=== PATIENT | female | born 1945 | race Caucasian/White ===

== ENCOUNTER 2017-12-14 11:30 | Inpatient (IN) ==
--- NOTE | 2017-12-14 13:32 | Emergency Department Note ---
Disposition Clinical Impression: Vertigo, Disequilibrium Disposition: Admitted As Inpatient Condition: Fair Time of Disposition: 21:15 SOB HPI - General Chief Complaint: ED Shortness of Breath/Dyspnea Stated Complaint: Dizziness,ALKES Time Seen by Provider: 12/14/17 13:26 Source: patient Mode of arrival: ambulatory Limitations: no limitations Nursing Notes Reviewed: Yes Vital Signs Reviewed: Yes - History of Present Illness Patient is a 72-year-old female with past medical history of tricuspid valve regurg, CHF and recently started on Lasix 20 mg Monday and Monday, A. fib and currently on rate control medication and blood thinner, Hypertension, hyperlipidemia. She presents today due to vertigo, disequilibrium, falling towards the right. She says that over the past 2-3 days, she has began feeling dizzy. She describes as the room spinning. Denies any other numbness, tingling , weakness, chest pain, shortness of breath above her baseline with COPD and CHF , abdominal pain, nausea, vomiting, fevers. She denies any actual falls or hitting her head, any LOC. She just states that she keeps falling to her right and then catches herself before she falls to the ground. She was seen in urgent care earlier this morning and had a chest x-ray that showed no pulmonary edema. She was referred here due to dizziness. - Related Data Home Medications Medication Instructions Recorded Confirmed Aspirin [Lo-Dose Aspirin EC] 81 mg PO DAILY 07/20/15 12/14/17 Montelukast [Singulair] 10 mg PO HS 07/20/15 12/14/17 Pravastatin Sodium [Pravachol] 20 mg PO HS 07/20/15 12/14/17 clonazePAM [Klonopin] 0.5 mg PO HS PRN 08/24/16 12/14/17 methIMAzole [Tapazole] 2.5 mg PO Q48H 08/24/16 12/14/17 Albuterol Sulfate [Albuterol 2 puff IH Q4HR PRN 11/18/16 12/14/17 Inhaler] Escitalopram [Lexapro] 20 mg PO DAILY 11/18/16 12/14/17 Vit A/Vit C/Vit E/Zinc/Copper 1 each PO DAILY 11/18/16 12/14/17 [Preservision Areds Tablet] Warfarin [Coumadin] 10 mg PO SUMOTUTHFR 11/18/16 12/14/17 Ascorbic Acid [Vitamin C] 500 mg PO DAILY 05/09/17 12/14/17 Diltiazem HCl [Diltiazem 24Hr Cd] 360 mg PO DAILY 05/09/17 12/14/17 Metoprolol [Lopressor] 12.5 mg PO BID 05/09/17 12/14/17 BuPROPion XL (24 HR) [Wellbutrin 150 mg PO DAILY 12/14/17 12/14/17 XL] Furosemide [Lasix] 20 mg PO MOWEFR 12/14/17 12/14/17 Losartan Potassium [Cozaar] 50 mg PO DAILY 12/14/17 12/14/17 Mirabegron [Myrbetriq] 50 mg PO DAILY 12/14/17 12/14/17 Warfarin [Coumadin] 5 mg PO WESA 12/14/17 12/14/17 Previous Rx's Medication Instructions Recorded Digoxin [Lanoxin] 0.125 mg PO DAILY 30 Days tablet 08/28/16 Allergies Allergy/AdvReac Type Severity Reaction Status Date / Time Iodinated Contrast- Oral and Allergy Rash Verified 12/14/17 11:40 IV Dye Penicillins [PCN] Allergy Hives Verified 12/14/17 11:40 phenobarbital Allergy Seizure Verified 12/14/17 11:40 Sulfa (Sulfonamide Allergy Hives Verified 12/14/17 11:40 Antibiotics) Beta-Blockers AdvReac Difficulty Verified 12/14/17 11:40 (Beta-Adrenergic Bloc Breathing budesonide [From Symbicort] AdvReac Weakness Verified 12/14/17 11:40 Formoterol [From Symbicort] AdvReac Weakness Verified 12/14/17 11:40 nitrofurantoin AdvReac Dry Mucus Verified 12/14/17 11:40 Membranes barbituates Allergy Hives Uncoded 12/14/17 11:40 All systems ED: reviewed and negative except as stated. Constitutional: Denies: fever Cardiovascular: Denies: chest pain, palpitations Respiratory: Denies: cough, dyspnea, wheezes Gastrointestinal: Denies: abdominal pain, nausea, vomiting, diarrhea Genitourinary: Denies: urgency, dysuria, genital lesions Musculoskeletal: Denies: neck pain Integumentary: Denies: rash Neurological: Reports: vertigo. Denies: headache, weakness, numbness, paresthesias Past Medical History - Past Medical History Attestation: Yes The following information was validated with the patient. 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 - Social History Smoking Status: Current every day smoker Smokeless Tobacco Status: No Alcohol use: Reports: none Drug use: Reports: none Physical Exam - General Limitations: no limitations General appearance: alert, in no apparent distress - Head Head exam: atraumatic, normocephalic, normal inspection - Eye Eye exam: Present: normal appearance, PERRL, EOMI, other (no nystagmus) - ENT ENT exam: normal exam, normal oropharynx, mucous membranes moist - Neck Neck exam: Present: normal inspection, full ROM, trachea midline - Chest Chest inspection: Present: normal inspection, symmetric chest wall rise - Respiratory Respiratory exam: Present: other (mild crackles in bilateral LL). Absent: respiratory distress, wheezes - Cardiovascular Cardiovascular exam: Present: regular rate, normal rhythm, normal heart sounds - Abdominal Exam Abdominal exam: Present: soft, Non-Tender. Absent: tenderness, distention, guarding, rebound, rigidity - Extremities Exam Extremities exam: Present: normal inspection, full ROM. Absent: tenderness, pedal edema - Neurological Exam Neurological exam: Present: alert, oriented X3, CN II-XII intact, other (no ataxia of bilateral upper limbs). Absent: motor sensory deficit - Psychiatric Psychiatric exam: Present: normal affect, normal mood - Skin Skin exam: Present: warm, dry, intact, normal color Course Vital Signs Temperature 97.7 F 12/14/17 11:36 Pulse Rate 88 12/14/17 11:36 Respiratory Rate 18 12/14/17 11:36 Blood Pressure 170/86 12/14/17 11:36 O2 Sat by Pulse Oximetry 88 12/14/17 11:36 Temperature 97.7 F 12/14/17 11:36 Pulse Rate 72 12/14/17 17:04 Respiratory Rate 14 12/14/17 17:48 Blood Pressure 145/95 12/14/17 17:48 O2 Sat by Pulse Oximetry 93 12/14/17 17:04 Oxygen Delivery Oxygen Delivery Nasal Cannula Shortness of Breath/Dyspnea - [facility] [place] Narrative Medical decision making narrative: No elevation white blood cell count. Troponin was elevated at 0.07 but this is similar to all previous troponin levels. Chest x-ray from earlier today shows bilateral small pleural effusions but no other acute cardio pulmonary process. Head CT was negative for any acute intracranial abnormality. Results were discussed with the patient. Currently concern for cerebellar stroke due to her distal equilibrium, vertigo symptoms. Recommend that she be admitted for further CVA workup and recommend MRI/MRA of the head and neck for further eval. Patient was happy and agreeable with this plan. Hospitalist has accepted for admission. Head CT 12/14/17 13:49 IMPRESSION: No acute intracranial abnormality. D/ / Ariel Rey MD / Ariel Rey MD Interpreting Provider: Ariel Rey MD - Medical Records Medical records reviewed: Yes I reviewed the patient's medical records. - Lab Data Lab results reviewed: Yes I reviewed the patient's lab results. Result diagrams: 12/14/17 12:57 12/14/17 12:57 Lab Results 12/14/17 12/14/17 12/14/17 Range/Units 12:57 12:57 12:57 WBC 6.9 (4.3-11.1) K/mcL RBC 4.85 (3.82-4.97) M/mcL Hgb 15.1 (11.5-15.4) g/dL Hct 49.0 H (35.3-44.9) % MCV 101.0 H (83.0-100.0) fL MCH 31.1 (28.0-33.3) pg MCHC 30.8 L (31.6-35.5) g/dL RDW 14.5 (11.5-14.5) % Plt Count 224 (140-400) K/mcL MPV 11.4 (9.4-12.4) fL Immature Gran % 0.1 (0-4) % Seg Neutrophils % 68.8 % Lymphocytes % 14.4 % Monocytes % 11.5 % Eosinophils % 3.2 % Basophils % 2.0 % Neutrophils # 4.8 (1.6-8.9) K/mcL Lymphocytes # 1.0 (0.6-4.6) K/mcL Monocytes # 0.8 (0.0-1.3) K/mcL Eosinophils # 0.2 (0.0-0.6) K/mcL Basophils # 0.1 (0.0-0.2) K/mcL Sodium 141 (136-145) mEq/L Potassium 4.4 (3.5-5.1) mEq/L Chloride 105 (98-107) mEq/L Carbon Dioxide 33 H (23-29) mEq/L BUN 13 (8-23) mg/dL Creatinine 0.59 L (0.60-1.20) mg/dL Est GFR ( Amer) > 60 (> 60) Est GFR (Non-Af Amer) > 60 (> 60) BUN/Creatinine Ratio 22 (6-26) Glucose 121 H (70-105) mg/dL Calculated Osmolality 293 (280-300) Lactic Acid 0.7 (0.5-2.2) mmol/L Calcium 9.8 (8.6-10.3) mg/dL Troponin I 0.07 H* (< 0.04) ng/mL B-Natriuretic Peptide (Less than 100) pg/mL 12/14/17 Range/Units 12:57 WBC (4.3-11.1) K/mcL RBC (3.82-4.97) M/mcL Hgb (11.5-15.4) g/dL Hct (35.3-44.9) % MCV (83.0-100.0) fL MCH (28.0-33.3) pg MCHC (31.6-35.5) g/dL RDW (11.5-14.5) % Plt Count (140-400) K/mcL MPV (9.4-12.4) fL Immature Gran % (0-4) % Seg Neutrophils % % Lymphocytes % % Monocytes % % Eosinophils % % Basophils % % Neutrophils # (1.6-8.9) K/mcL Lymphocytes # (0.6-4.6) K/mcL Monocytes # (0.0-1.3) K/mcL Eosinophils # (0.0-0.6) K/mcL Basophils # (0.0-0.2) K/mcL Sodium (136-145) mEq/L Potassium (3.5-5.1) mEq/L Chloride (98-107) mEq/L Carbon Dioxide (23-29) mEq/L BUN (8-23) mg/dL Creatinine (0.60-1.20) mg/dL Est GFR ( Amer) (> 60) Est GFR (Non-Af Amer) (> 60) BUN/Creatinine Ratio (6-26) Glucose (70-105) mg/dL Calculated Osmolality (280-300) Lactic Acid (0.5-2.2) mmol/L Calcium (8.6-10.3) mg/dL Troponin I (< 0.04) ng/mL B-Natriuretic Peptide 297 H (Less than 100) pg/mL - Radiology Data Radiology results reviewed: Yes I reviewed the patient's radiology results. S.B.A.R. - S.B.A.R. Situation: Demographics, MOA Background: Presenting Complaint, Relevant PMH, Meds, & Allergies Assessment: Vital Signs, Course and respsone to treatment, Exam Concerns, Patient/Family Expectation, Pertinant Lab Results Recommendation: Barrier(s) to disposition, Recommendation based on pending studies, treatments, or consults S.B.A.R. Report Given to: Dr. Austin
[2017-12-14 13:33] LABS: BUN/Creatinine Ratio 22 (6-26); Blood Urea Nitrogen 13 mg/dL (8-23); Calcium 9.8 mg/dL (8.6-10.3); Carbon Dioxide 33 mEq/L (23-29); Chloride 105 mEq/L (98-107); Glucose 121 mg/dL (70-105); Osmolality,Calculated 293 (280-300); Potassium 4.4 mEq/L (3.5-5.1); Sodium 141 mEq/L (136-145); eGFR For African Americans > 60 (> 60); eGFR For Non-African Americans > 60 (> 60)
[2017-12-14 13:34] LABS: Basophils # 0.1 K/mcL (0.0-0.2); Eosinophils # 0.2 K/mcL (0.0-0.6); Eosinophils % 3.2 %; Hemoglobin 15.1 g/dL (11.5-15.4); Immature Granulocytes % 0.1 % (0-4); Lymphocytes % 14.4 %; Mean Corpuscular HGB Conc 30.8 g/dL (31.6-35.5); Mean Corpuscular Hemoglobin 31.1 pg (28.0-33.3); Mean Platelet Volume 11.4 fL (9.4-12.4); Monocytes # 0.8 K/mcL (0.0-1.3); Monocytes % 11.5 %; Neutrophils # 4.8 K/mcL (1.6-8.9); Platelet Count 224 K/mcL (140-400); Red Blood Count 4.85 M/mcL (3.82-4.97); Red Cell Distribution Width 14.5 % (11.5-14.5); Segmented Neutrophils % 68.8 %
[2017-12-14 14:15] LABS: Troponin I 0.07 ng/mL (< 0.04)
--- NOTE | 2017-12-14 14:19 | Emergency Department Note ---
Disposition Clinical Impression: Vertigo, Disequilibrium Disposition: Admitted As Inpatient Condition: Fair General Adult HPI - General Chief complaint: ED Shortness of Breath/Dyspnea Stated complaint: Dizziness,ALEKS Time Seen by Provider: 12/14/17 13:26 Source: patient Mode of arrival: ambulatory Limitations: no limitations - History of Present Illness Pain Scale: 0 - Related Data Home Medications Medication Instructions Recorded Confirmed Aspirin [Lo-Dose Aspirin EC] 81 mg PO DAILY 07/20/15 12/14/17 Montelukast [Singulair] 10 mg PO HS 07/20/15 12/14/17 Pravastatin Sodium [Pravachol] 20 mg PO HS 07/20/15 12/14/17 clonazePAM [Klonopin] 0.5 mg PO HS PRN 08/24/16 12/14/17 methIMAzole [Tapazole] 2.5 mg PO Q48H 08/24/16 12/14/17 Albuterol Sulfate [Albuterol 2 puff IH Q4HR PRN 11/18/16 12/14/17 Inhaler] Escitalopram [Lexapro] 20 mg PO DAILY 11/18/16 12/14/17 Vit A/Vit C/Vit E/Zinc/Copper 1 each PO DAILY 11/18/16 12/14/17 [Preservision Areds Tablet] Warfarin [Coumadin] 10 mg PO SUMOTUTHFR 11/18/16 12/14/17 Ascorbic Acid [Vitamin C] 500 mg PO DAILY 05/09/17 12/14/17 Diltiazem HCl [Diltiazem 24Hr Cd] 360 mg PO DAILY 05/09/17 12/14/17 Metoprolol [Lopressor] 12.5 mg PO BID 05/09/17 12/14/17 BuPROPion XL (24 HR) [Wellbutrin 150 mg PO DAILY 12/14/17 12/14/17 XL] Furosemide [Lasix] 20 mg PO MOWEFR 12/14/17 12/14/17 Losartan Potassium [Cozaar] 50 mg PO DAILY 12/14/17 12/14/17 Mirabegron [Myrbetriq] 50 mg PO DAILY 12/14/17 12/14/17 Warfarin [Coumadin] 5 mg PO WESA 12/14/17 12/14/17 Previous Rx's Medication Instructions Recorded Digoxin [Lanoxin] 0.125 mg PO DAILY 30 Days tablet 08/28/16 Allergies Allergy/AdvReac Type Severity Reaction Status Date / Time Iodinated Contrast- Oral and Allergy Rash Verified 12/14/17 11:40 IV Dye Penicillins [PCN] Allergy Hives Verified 12/14/17 11:40 phenobarbital Allergy Seizure Verified 12/14/17 11:40 Sulfa (Sulfonamide Allergy Hives Verified 12/14/17 11:40 Antibiotics) Beta-Blockers AdvReac Difficulty Verified 12/14/17 11:40 (Beta-Adrenergic Bloc Breathing budesonide [From Symbicort] AdvReac Weakness Verified 12/14/17 11:40 Formoterol [From Symbicort] AdvReac Weakness Verified 12/14/17 11:40 nitrofurantoin AdvReac Dry Mucus Verified 12/14/17 11:40 Membranes barbituates Allergy Hives Uncoded 12/14/17 11:40 Past Medical History - Past Medical History Medical history: Reports: CVA, hyperlipidemia, hypertension, other Surgical history: Reports: coronary bypass (CABG), heart valve replacement Psychiatric history: Reports: depression 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 - Social History Smoking Status: Current every day smoker Smokeless Tobacco Status: No Alcohol use: Reports: none Drug use: Reports: none Physical Exam - General Limitations: no limitations General appearance: alert, in no apparent distress Course Vital Signs Temperature 97.7 F 12/14/17 11:36 Pulse Rate 88 12/14/17 11:36 Respiratory Rate 18 12/14/17 11:36 Blood Pressure 170/86 12/14/17 11:36 O2 Sat by Pulse Oximetry 88 12/14/17 11:36 Temperature 97.7 F 12/14/17 11:36 Pulse Rate 72 12/14/17 17:04 Respiratory Rate 14 12/14/17 17:48 Blood Pressure 145/95 12/14/17 17:48 O2 Sat by Pulse Oximetry 93 12/14/17 17:04 Oxygen Delivery Oxygen Delivery Nasal Cannula Medical Decision Making - Lab Data Result diagrams: 12/14/17 12:57 12/14/17 12:57 Lab Results 12/14/17 12/14/17 12/14/17 Range/Units 12:57 12:57 12:57 WBC 6.9 (4.3-11.1) K/mcL RBC 4.85 (3.82-4.97) M/mcL Hgb 15.1 (11.5-15.4) g/dL Hct 49.0 H (35.3-44.9) % MCV 101.0 H (83.0-100.0) fL MCH 31.1 (28.0-33.3) pg MCHC 30.8 L (31.6-35.5) g/dL RDW 14.5 (11.5-14.5) % Plt Count 224 (140-400) K/mcL MPV 11.4 (9.4-12.4) fL Immature Gran % 0.1 (0-4) % Seg Neutrophils % 68.8 % Lymphocytes % 14.4 % Monocytes % 11.5 % Eosinophils % 3.2 % Basophils % 2.0 % Neutrophils # 4.8 (1.6-8.9) K/mcL Lymphocytes # 1.0 (0.6-4.6) K/mcL Monocytes # 0.8 (0.0-1.3) K/mcL Eosinophils # 0.2 (0.0-0.6) K/mcL Basophils # 0.1 (0.0-0.2) K/mcL Sodium 141 (136-145) mEq/L Potassium 4.4 (3.5-5.1) mEq/L Chloride 105 (98-107) mEq/L Carbon Dioxide 33 H (23-29) mEq/L BUN 13 (8-23) mg/dL Creatinine 0.59 L (0.60-1.20) mg/dL Est GFR ( Amer) > 60 (> 60) Est GFR (Non-Af Amer) > 60 (> 60) BUN/Creatinine Ratio 22 (6-26) Glucose 121 H (70-105) mg/dL Calculated Osmolality 293 (280-300) Lactic Acid 0.7 (0.5-2.2) mmol/L Calcium 9.8 (8.6-10.3) mg/dL Troponin I 0.07 H* (< 0.04) ng/mL B-Natriuretic Peptide (Less than 100) pg/mL 12/14/17 Range/Units 12:57 WBC (4.3-11.1) K/mcL RBC (3.82-4.97) M/mcL Hgb (11.5-15.4) g/dL Hct (35.3-44.9) % MCV (83.0-100.0) fL MCH (28.0-33.3) pg MCHC (31.6-35.5) g/dL RDW (11.5-14.5) % Plt Count (140-400) K/mcL MPV (9.4-12.4) fL Immature Gran % (0-4) % Seg Neutrophils % % Lymphocytes % % Monocytes % % Eosinophils % % Basophils % % Neutrophils # (1.6-8.9) K/mcL Lymphocytes # (0.6-4.6) K/mcL Monocytes # (0.0-1.3) K/mcL Eosinophils # (0.0-0.6) K/mcL Basophils # (0.0-0.2) K/mcL Sodium (136-145) mEq/L Potassium (3.5-5.1) mEq/L Chloride (98-107) mEq/L Carbon Dioxide (23-29) mEq/L BUN (8-23) mg/dL Creatinine (0.60-1.20) mg/dL Est GFR ( Amer) (> 60) Est GFR (Non-Af Amer) (> 60) BUN/Creatinine Ratio (6-26) Glucose (70-105) mg/dL Calculated Osmolality (280-300) Lactic Acid (0.5-2.2) mmol/L Calcium (8.6-10.3) mg/dL Troponin I (< 0.04) ng/mL B-Natriuretic Peptide 297 H (Less than 100) pg/mL Attestation Statement - Attestation Attestation: I examined this patient and my medical decision-making was reviewed with the FARM MANAGER/PA/Advanced Practice Nurse/Resident Physician. I agree with the documented findings, disposition and treatment plan as described except to the extent set forth below. Presents with vertigo and a feeling that she is leaning to one side and I did see the patient spoke with her and her family member and the concern is for a possible cerebellar infarct. This has been present for the last 2 or 3 days that she is not a thrombolytic candidate based on prolonged duration of this. No focal neurologic symptoms or signs. Evaluation in progress the patient will likely be admitted to the hospital as she does have a concerning story. Also does have concern breath likely from COPD exacerbation and does have generalized wheezing. [id number]
--- NOTE | 2017-12-14 17:29 | Electrocardiograph Report ---
[facility] Test Date: 2017-12-14 Pat Name: Betina Slade Department: 104 Room: 3B11 Gender: F [place]: ROBIN : 1945 Requested By: Murray Li Order Number: [id number] Reading MD: Rusty Hayes Measurements Intervals [place] Rate: 95 P: SC: 0 QRS: -62 QRSD: 91 T: 104 QT: 338 QTc: 391 Interpretive Statements ATRIAL FIBRILLATION MARKED LEFT AXIS DEVIATION NONSPECIFIC ST & T-WAVE ABNORMALITY Electronically Signed On 12-14-2017 17:27:53 EDT by Rusty Hayes
--- NOTE | 2017-12-14 17:44 | Internal Med History&Physical ---
Date of Encounter: 12/14/17 Time of Encounter: 17:35 Internal Medicine - H&P: HPI Chief complaint: Dysequalibrium Admitted From: Emergency Dept Plans for Post Hospital Care: Home History of present illness: Patient is a 72-year-old female with past medical history of severe tricuspid valve regurg, Mechanical AV and MV, CHF (recently started on Lasix 20 mg Monday and Monday), permanent A. fib (currently rate controlled), Long-term Coumadin use, hypertension, hyperlipidemia. She presents today due to vertigo, disequilibrium, falling towards the right. She says that over the past 2-3 days , she has began feeling dizzy especially when looking down but this has improved. She developed severe dysequalibrium today and cannot walk without grabbing onto the wall and feels like she is falling to the right. She denies visual changes, slurred speech, numbness, tingling, weakness, chest pain but is more sob. Her CT-Head is negative ICH or other acute pathology. Her initial troponin is elevated, but her ECG showes only nonspecific ST changes. She's noted LE edema over the past week or two and was started on Lasix this week by her PCP. She denies abdominal pain, nausea, vomiting, fevers, dyuria or UTI symptoms. She denies any actual falls or hitting her head. She just states that she keeps falling to her right and then catches herself before she falls to the ground. She was seen in urgent care earlier this morning and had a chest x-ray that showed no infiltrates but did show interstitial edema and small bilateral pleural effusions. She will be admitted for further w/u. Past Med Surg Social Fam HX - Past Medical History Medical history: CVA, hyperlipidemia, hypertension, other Psychiatric history: depression - Past Surgical History Surgical History: coronary bypass (CABG), heart valve replacement - Social History Smoking Status: Current every day smoker Smokeless Tobacco Status: No Alcohol use: none Drug use: none - Family History Father Adopted: No Family Member Ethnicity: Non- Living Status: Hx Family Cardiac Disorders: Yes Hx Family Respiratory Disorders: Yes (Emphysema) Hx Family Cancer: No Hx Family GI Disorders: No Hx Family Endocrine Disorder: No Hx Family Neuromuscular Disorders: No Hx Family Neurologic Disorders: No Hx Family HEENT Disorders: No Hx Family Autoimmune Disorders: No Internal Medicine - H&P: Meds Aspirin [Lo-Dose Aspirin EC] 81 mg PO DAILY 07/20/15 [History] Montelukast [Singulair] 10 mg PO HS 07/20/15 [History] Pravastatin Sodium [Pravachol] 20 mg PO HS 07/20/15 [History] clonazePAM [Klonopin] 0.5 mg PO HS PRN 08/24/16 [History] methIMAzole [Tapazole] 2.5 mg PO Q48H 08/24/16 [History] Digoxin [Lanoxin] 0.125 mg PO DAILY 30 Days tablet 08/28/16 [Rx] Albuterol Sulfate [Albuterol Inhaler] 2 puff IH Q4HR PRN 11/18/16 [History] Escitalopram [Lexapro] 20 mg PO DAILY 11/18/16 [History] Vit A/Vit C/Vit E/Zinc/Copper [Preservision Areds Tablet] 1 each PO DAILY [History] Warfarin [Coumadin] 10 mg PO SUMOTUTHFR 11/18/16 [History] Ascorbic Acid [Vitamin C] 500 mg PO DAILY 05/09/17 [History] Diltiazem HCl [Diltiazem 24Hr Cd] 360 mg PO DAILY 05/09/17 [History] Metoprolol [Lopressor] 12.5 mg PO BID 05/09/17 [History] BuPROPion XL (24 HR) [Wellbutrin XL] 150 mg PO DAILY 12/14/17 [History] Furosemide [Lasix] 20 mg PO MOWEFR 12/14/17 [History] Losartan Potassium [Cozaar] 50 mg PO DAILY 12/14/17 [History] Mirabegron [Myrbetriq] 50 mg PO DAILY 12/14/17 [History] Warfarin [Coumadin] 5 mg PO WESA 12/14/17 [History] 3 Allergy/AdvReac Type Severity Reaction Status Date / Time Iodinated Contrast- Oral and Allergy Rash Verified 12/14/17 11:40 IV Dye Penicillins [PCN] Allergy Hives Verified 12/14/17 11:40 phenobarbital Allergy Seizure Verified 12/14/17 11:40 Sulfa (Sulfonamide Allergy Hives Verified 12/14/17 11:40 Antibiotics) Beta-Blockers AdvReac Difficulty Verified 12/14/17 11:40 (Beta-Adrenergic Bloc Breathing budesonide [From Symbicort] AdvReac Weakness Verified 12/14/17 11:40 Formoterol [From Symbicort] AdvReac Weakness Verified 12/14/17 11:40 nitrofurantoin AdvReac Dry Mucus Verified 12/14/17 11:40 Membranes barbituates Allergy Hives Uncoded 12/14/17 11:40 All Systems PM: A 10-system review of systems was performed and is negative for pertinent findings except as documented above in the HPI. - Constitutional Constitutional: no anorexia, no chills, no falls, no weakness, no weight loss - EENT Eyes: no change in vision, no diplopia, no photophobia Ears: no decreased hearing, no ear pain, no tinnitus Nose, mouth and throat: no epistaxis - Respiratory Respiratory: no cough, no dyspnea, no hemoptysis, no wheezing - Gastrointestinal Gastrointestinal: no abdominal pain, no constipation, no diarrhea - Genitourinary Genitourinary: no dysuria - Psychiatric Psychiatric: no auditory hallucinations, no hallucinations, no suicidal ideation - Constitutional Vitals: Temp Pulse Resp BP Pulse Ox 97.7 F 72 14 159/93 93 12/14/17 11:36 12/14/17 17:04 12/14/17 17:04 12/14/17 17:04 12/14/17 17:04 General appearance: Present: A&O X 3, pleasant, no acute distress - Head Head exam: Present: atraumatic, normocephalic - Eye Eye exam: Present: EOMI, PERRL, conjuntiva pink, sclera anicteric. Absent: nystagmus, scleral icterus Pupils: Present: PERRL - Neck Neck exam general surgery: Present: supple, trachea midline. Absent: lymphadenopathy - Respiratory Respiratory exam: Present: CTAB, rales. Absent: accessory muscle use, rhonchi, wheezes - Cardiovascular Cardiovascular exam: Present: irregular rhythm, +S1, +S2. Absent: diastolic murmur, gallop, RRR, rubs, systolic murmur - GI/Abdominal GI/Abdominal exam: Present: normal bowel sounds, soft, no peritoneal signs. Absent: distended, tenderness - Extremities Exam Extremities exam: Present: warm, radial pulses palpable and symmetrical. Absent : calf tenderness, cyanotic, pedal edema - Neurological Exam Neurological exam: Present: abnormal gait, CN II-XII intact, oriented X3, no focal deficits. Absent: pronater drift, facial droop, speech deficit - Skin Skin exam: Present: dry, intact. Absent: petechiae Internal Med - H&P Results - Labs CBC & Chem 7: 12/14/17 12:57 12/14/17 12:57 - Assessment and plan (1) Vertigo Current Visit: Yes Status: Acute Assessment and plan: No focal neurological deficits except vertiginous symptoms. Feels like she is falling to right Concern for cerebellar infarct CT-Head did not show acute changes MRI-Brain ordered Neuro checks Telemetry Check carotid U/S Check Echo (2) Atrial fibrillation Current Visit: No Status: Chronic Assessment and plan: Rate controlled Continue home rate control medication Check INR (Tx range for Mech. Valves = 2.5-3.5) Continue telemetry Qualifiers: Atrial fibrillation type: persistent Qualified Code(s): I48.1 - Persistent atrial fibrillation (3) Mechanical heart valve present Current Visit: Yes Status: Acute Assessment and plan: Mechanical AV and MV On Warfarin Code(s): Z95.2 - Presence of prosthetic heart valve (4) CHF (congestive heart failure) Current Visit: No Status: Acute Assessment and plan: Recently started on Lasix Increase lasix to 20 mg IVP BID Check K+ and Mag Check Echo Qualifiers: Heart failure type: unspecified Heart failure chronicity: acute on chronic Qualified Code(s): I50.9 - Heart failure, unspecified (5) Elevated troponin Current Visit: No Status: Acute Assessment and plan: Hx of CAD No CP Continue trending troponins ECG showed Afib (rate controlled) with nonspecific ST changes On Coumadin On aspirin (6) Hyperthyroidism Current Visit: Yes Status: Acute Assessment and plan: On Tapazole Check TSH. fT4 (7) Long-term (current) use of anticoagulants, INR goal 2.5-3.5 Current Visit: No Status: Chronic Assessment and plan: RPh to dose Coumadin Check INR (8) DVT prophylaxis Current Visit: No Status: Chronic Assessment and plan: On Coumadin SNOMED Code(s): 929196532 - Time Spent With Patient Total time spent is greater than 50% in coordination of care (as documented) at patient's floor/unit and/or counseling patient: Greater than 35 minutes
[2017-12-14] MEDS ORDERED: clonazePAM 0.5 MG TABLET PO PRN (18:39)
[2017-12-14 19:10] LABS: INR 2.8; Prothrombin Time 30.3 Seconds (9.4-12.1)
[2017-12-14 19:27] LABS: Troponin I 0.06 ng/mL (< 0.04)
[2017-12-14 19:38] LABS: Thyroid Stimulating Hormone 3.468 mcIU/mL (0.340-5.600)
[2017-12-14 19:39] LABS: Triiodothyronine (T3) Free 2.96 pg/mL (2.50-3.90)
[2017-12-14] MEDS: BuPROPion XL (24 HR) 150 MG TABLET PO SCH (20:44)
[2017-12-14] MEDS: *HR* Warfarin 10 MG TABLET PO SCH (20:45)
[2017-12-14] MEDS: (Mirabegron [Myrbetriq] 50 MG) PO SCH (20:45)
[2017-12-14] MEDS: Furosemide 20 MG/2 ML VIAL IVP SCH (20:45)
[2017-12-14] MEDS ORDERED: methIMAzole 5 MG TABLET PO SCH (21:00)
[2017-12-15 07:24] LABS: Basophils # 0.1 K/mcL (0.0-0.2); Basophils % 1.6 %; Eosinophils # 0.2 K/mcL (0.0-0.6); Eosinophils % 3.4 %; Hematocrit 44.7 % (35.3-44.9); Hemoglobin 13.8 g/dL (11.5-15.4); Immature Granulocytes % 0.1 % (0-4); Lymphocytes # 0.8 K/mcL (0.6-4.6); Lymphocytes % 12.4 %; Mean Corpuscular HGB Conc 30.9 g/dL (31.6-35.5); Mean Corpuscular Hemoglobin 31.1 pg (28.0-33.3); Mean Corpuscular Volume 100.7 fL (83.0-100.0); Mean Platelet Volume 11.6 fL (9.4-12.4); Monocytes # 1.1 K/mcL (0.0-1.3); Monocytes % 16.5 %; Neutrophils # 4.4 K/mcL (1.6-8.9); Platelet Count 200 K/mcL (140-400); Red Blood Count 4.44 M/mcL (3.82-4.97); Red Cell Distribution Width 14.4 % (11.5-14.5)
[2017-12-15 07:35] LABS: INR 2.5
[2017-12-15 07:44] LABS: Alanine Aminotransferase 20 Units/L (7-52); Albumin 3.5 g/dL (3.5-5.7); Albumin/Globulin Ratio 1.3 (1.1-2.2); Alkaline Phosphatase 128 Units/L (34-104); Aspartate Amino Transferase 26 Units/L (13-39); BUN/Creatinine Ratio 23 (6-26); Blood Urea Nitrogen 15 mg/dL (8-23); Calcium 9.1 mg/dL (8.6-10.3); Carbon Dioxide 34 mEq/L (23-29); Chloride 105 mEq/L (98-107); Globulin 2.7 g/dL (2.4-3.5); Glucose 92 mg/dL (70-105); Osmolality,Calculated 302 (280-300); Potassium 4.2 mEq/L (3.5-5.1); Sodium 146 mEq/L (136-145); Total Protein 6.2 g/dL (6.4-8.9); eGFR For African Americans > 60 (> 60); eGFR For Non-African Americans > 60 (> 60)
[2017-12-15] MEDS: *HR* Digoxin 0.125 MG TABLET PO SCH (09:03)
[2017-12-15] MEDS: Furosemide 20 MG/2 ML VIAL IVP SCH ×2 (09:03→16:29)
[2017-12-15] MEDS: Ascorbic Acid 500 MG TABLET PO SCH (09:03)
[2017-12-15] MEDS: VIT C PO SCH (09:04)
[2017-12-15] MEDS: ZINC PO SCH (09:04)
[2017-12-15] MEDS: VIT E PO SCH (09:04)
[2017-12-15] MEDS: Aspirin Enteric Coated 81 MG Tablet PO SCH (09:04)
[2017-12-15] MEDS: VIT A PO SCH (09:04)
[2017-12-15] MEDS: COPPER PO SCH (09:04)
[2017-12-15] MEDS: Diltiazem CD (24hr) 180 MG CAPSULE PO SCH (09:04)
--- NOTE | 2017-12-15 13:50 | Internal Med Progress Note ---
Date of Encounter: 12/15/17 Time of Encounter: 13:49 - Assessment and plan (1) Atrial fibrillation Current Visit: No Status: Chronic Assessment and plan: Rate controlled Continue home medication INR 2.5 (Tx range for Mech. Valves = 2.5-3.5) Continue telemetry Qualifiers: Atrial fibrillation type: persistent Qualified Code(s): I48.1 - Persistent atrial fibrillation (2) Elevated troponin Current Visit: No Status: Acute Assessment and plan: Hx of CAD No complaints of chest pain or shortness of breath troponins 0.06 which on past labs was 0.06 to 0.07 ECG showed Afib (rate controlled) with nonspecific ST changes continue Coumadin and asa (3) CHF (congestive heart failure) Current Visit: No Status: Inactive Assessment and plan: Recently started on Lasix by PCP Continue lasix 20 mg IVP BID K+ 4.2 Echo pending Qualifiers: Heart failure type: unspecified Heart failure chronicity: acute on chronic Qualified Code(s): I50.9 - Heart failure, unspecified (4) Vertigo Current Visit: Yes Status: Acute Assessment and plan: No focal neurological deficits except vertiginous symptoms. Stated she feels like she is falling to right Concern for cerebellar infarct CT-Head did not show acute changes MRI-Brain with no acute intercranial abnormality and mild chronic microvascular ischemic disease, including remote bilateral cerebellar lacunar infarcts Neuro checks negative Carotid U/S pending Echo pending PT/OT/social service consults regarding fall risk and possible rehabilitation (5) Mechanical heart valve present Current Visit: Yes Status: Acute Assessment and plan: Mechanical AV and MV On Warfarin with therapeutic INR Code(s): Z95.2 - Presence of prosthetic heart valve (6) Hyperthyroidism Current Visit: Yes Status: Acute Assessment and plan: On Tapazole TSH. Free T3/4 within normal limits (7) Long-term (current) use of anticoagulants, INR goal 2.5-3.5 Current Visit: No Status: Chronic Assessment and plan: Pharmacyto dose Coumadin Therapeutic INR (8) DVT prophylaxis Current Visit: No Status: Chronic Assessment and plan: Continue Coumadin SNOMED Code(s): 125992658 - Time Spent With Patient Total time spent is greater than 50% in coordination of care (as documented) at patient's floor/unit and/or counseling patient: - Subjective Interval history: Patient is sitting up on the side of bed eating her breakfast. She is feeling better. She is currently on room air. She states she continues to smoke a half a pack of cigarettes a day. She denied any falls at home and states she has been feeling dizzy with listing to the right since Good Monday. She denies any chest pain, headache, blurred vision, abdominal pain, cough, or recent illness - Constitutional Vitals: Temp Pulse Resp BP Pulse Ox 97.9 F 87 17 158/83 93 12/15/17 07:44 12/15/17 07:44 12/15/17 07:44 12/15/17 07:44 12/15/17 07:44 General appearance: Present: cooperative, A&O X 3, pleasant, answers questions appropriately - Head Head exam: Present: atraumatic, normocephalic - Eye Eye exam: Present: PERRL, conjuntiva pink, sclera anicteric. Absent: nystagmus Pupils: Present: PERRL - Neck Neck exam general surgery: Present: supple, trachea midline. Absent: lymphadenopathy - Respiratory Respiratory exam: Present: CTAB, rales. Absent: accessory muscle use, rhonchi, wheezes Additional comments: crackles bases bilaterally - Cardiovascular Cardiovascular exam: Present: clicks, irregular rhythm, +S1, +S2. Absent: diastolic murmur, gallop, rubs, systolic murmur - GI/Abdominal GI/Abdominal exam: Present: normal bowel sounds, soft, no peritoneal signs. Absent: distended, tenderness - Extremities Exam Extremities exam: Present: pedal edema, warm, radial pulses palpable and symmetrical. Absent: calf tenderness, cyanotic - Neurological Exam Neurological exam: Present: alert, CN II-XII intact, oriented X3, no focal deficits. Absent: pronater drift, facial droop, speech deficit - Skin Skin exam: Present: dry, intact, normal color, warm Additional comments: lipoma on right upper back Internal Medicine: Result - Labs CBC & Chem 7: 12/15/17 06:37 12/15/17 06:37 Labs: Short CBC 12/15/17 Range/Units 06:37 WBC 6.7 (4.3-11.1) K/mcL Hgb 13.8 (11.5-15.4) g/dL Hct 44.7 (35.3-44.9) % Plt Count 200 (140-400) K/mcL Neutrophils # 4.4 (1.6-8.9) K/mcL BMP 12/15/17 06:37 Sodium 146 H Potassium 4.2 Chloride 105 Carbon Dioxide 34 H BUN 15 Creatinine 0.64 Glucose 92 Calcium 9.1 Cardiac Enzymes 12/14/17 12/15/17 Range/Units 18:49 06:37 Troponin I 0.06 H* 0.06 H* (< 0.04) ng/mL Liver Function 12/15/17 Range/Units 06:37 Total Bilirubin 1.0 (0.3-1.0) mg/dL AST 26 (13-39) Units/L ALT 20 (7-52) Units/L Alkaline Phosphatase 128 H (34-104) Units/L Albumin 3.5 (3.5-5.7) g/dL - ABG Interpretation ABG results: PT/INR, D-dimer PT 28.0 Seconds (9.4-12.1) H 12/15/17 06:37 - Impressions Impressions Brain MRI 12/15/17 09:51 IMPRESSION: No acute intracranial abnormality. Mild chronic microvascular ischemic disease, including remote bilateral cerebellar lacunar infarcts. D/ / 12/15/2017 10:59:18 Mike Salgado MD / [facility] Interpreting Provider: Mike Salgado MD Consult Discharge Plan - Plan Referrals: Desmond Howe MD [Primary Care Provider] -
[2017-12-15] MEDS: BuPROPion XL (24 HR) 150 MG TABLET PO SCH (16:29)
[2017-12-15] MEDS: (Mirabegron [Myrbetriq] 50 MG) PO SCH (16:29)
[2017-12-15] MEDS: *HR* Warfarin 10 MG TABLET PO SCH (16:29)
[2017-12-15] MEDS ORDERED: Warfarin perPT PO PRN (18:00)
[2017-12-16 04:43] LABS: Hematocrit 42.6 % (35.3-44.9); Hemoglobin 13.2 g/dL (11.5-15.4); Mean Corpuscular Hemoglobin 30.8 pg (28.0-33.3); Mean Corpuscular Volume 99.3 fL (83.0-100.0); Mean Platelet Volume 11.2 fL (9.4-12.4); Platelet Count 190 K/mcL (140-400); Red Blood Count 4.29 M/mcL (3.82-4.97); Red Cell Distribution Width 14.2 % (11.5-14.5)
[2017-12-16 04:47] LABS: INR 3.6; Prothrombin Time 39.8 Seconds (9.4-12.1)
[2017-12-16 05:05] LABS: BUN/Creatinine Ratio 36 (6-26); Blood Urea Nitrogen 22 mg/dL (8-23); Calcium 8.9 mg/dL (8.6-10.3); Carbon Dioxide 37 mEq/L (23-29); Chloride 106 mEq/L (98-107); Glucose 103 mg/dL (70-105); Magnesium 1.9 mg/dL (1.6-2.6); Osmolality,Calculated 306 (280-300); Potassium 3.8 mEq/L (3.5-5.1); Sodium 146 mEq/L (136-145); eGFR For African Americans > 60 (> 60); eGFR For Non-African Americans > 60 (> 60)
[2017-12-16 08:20] VITALS: BP 120/68
[2017-12-16] MEDS: Aspirin Enteric Coated 81 MG Tablet PO SCH (10:11)
[2017-12-16] MEDS: Diltiazem CD (24hr) 180 MG CAPSULE PO SCH (10:13)
[2017-12-16] MEDS: Ascorbic Acid 500 MG TABLET PO SCH (10:14)
[2017-12-16] MEDS: *HR* Digoxin 0.125 MG TABLET PO SCH (10:15)
[2017-12-16] MEDS: Furosemide 20 MG/2 ML VIAL IVP SCH (10:15)
[2017-12-16] MEDS: VIT C PO SCH (10:17)
[2017-12-16] MEDS: ZINC PO SCH (10:17)
[2017-12-16] MEDS: VIT A PO SCH (10:17)
[2017-12-16] MEDS: COPPER PO SCH (10:17)
[2017-12-16] MEDS: VIT E PO SCH (10:17)
--- NOTE | 2017-12-16 10:53 | Discharge Summary ---
- NOTES TO OUTPATIENT PROVIDER Notes to Outpatient Provider: to be transferred to [place] for second opinion on Pannus formation of Aortic valve Date of Encounter: 12/16/17 Time of Encounter: 10:51 - Discharge Diagnosis (1) Atrial fibrillation Priority: Primary Status: Chronic Qualifiers: Atrial fibrillation type: persistent Qualified Code(s): I48.1 - Persistent atrial fibrillation (2) Elevated troponin Priority: Primary Status: Acute (3) CHF (congestive heart failure) Priority: Secondary Status: Inactive Qualifiers: Heart failure type: unspecified Heart failure chronicity: chronic Qualified Code(s): I50.9 - Heart failure, unspecified (4) Vertigo Priority: Primary Status: Acute (5) Mechanical heart valve present Priority: Primary Status: Acute Code(s): Z95.2 - Presence of prosthetic heart valve (6) Hyperthyroidism Priority: Primary Status: Chronic (7) Long-term (current) use of anticoagulants, INR goal 2.5-3.5 Priority: Primary Status: Chronic (8) DVT prophylaxis Priority: Primary Status: Chronic SNOMED Code(s): 255459022 Hospital course: Ms. Slade is a 72 year old female with a past medical history significant for severe tried cuspid valve regurgitation, mechanical AV and MV valves, CHF recently started on Lasix 20 mg Fridays. She also has permanent atrial fibrillation rate controlled. She is on long-term Coumadin use with a history as well as hypertension and hyperlipidemia and CVA. She also suffers with depression. She had a CABG and heart valve replacements in the past. She continues to smoke every day. Patient presented to the emergency room at [facility] with increased lower extremity edema over the past week or 2 and was started on Lasix by her PCP before admission. She also stated she Falling to her right side and then caught her self before she fell to the ground. She is dizzy but denied any actual falls to the ground or hitting her head. Right abdominal pain, nausea, vomiting, fevers, dysuria, headache or UTI symptoms. She presented to an urgent care earlier in the day of admission and had a chest x-ray that showed no infiltrates but did show some interstitial edema and small bilateral pleural effusions she presented here and was admitted for a rule out stroke workup. Carotid duplex revealed right carotid artery with minimal plaque throughout and left internal carotid artery with 60-79% stenosis further recommendations were follow-up repeat carotid duplex in 1 year. An echocardiogram was obtained and revealed a LVEF of 55%, mild concentric left ventricular hypertrophy. Indeterminate diastolic function. Moderately dilated RV with mild reduction in function. 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 No prosthetic aortic stenosis or obstruction by Doppler parameters. Mechanical mitral valve is not well visualized and no prosthetic mitral stenosis by Doppler parameters. Moderate to severe tricuspid regurgitation and mild pulmonic regurgitation with mild pulmonary hypertension. Rest Echo findings revealed all wall segments showed normal motion. MRI reported no acute intercranial abnormalities. Mild chronic microvascular ischemic disease including remote bilateral cerebellar lacunar infarcts was noted Head CT revealed no acute intercranial abnormalities EKG revealed atrial fibrillation with marked left axis deviation and nonspecific ST and T wave abnormalities. Hemoglobin and hematocrit are stable at 42.6 and 99.3. WBCs normal at 6.8. Platelets 190. PT INR have been followed and she ranged from 2.8-3.6 with pharmacy adjusting her doses. Sodium 146, potassium 3.8 chloride 106 carbon dioxide 37 BUN 22 and creatinine 0.61. Glucose 103 lactic acid negative at 0.7 calcium 8.9 magnesium 1.9 total bilirubin 1.0 AST 26 ALT 20 alkaline phosphatase 128 and troponins 0.063 sets. BNP 297 serum total protein 6.2 TSH 3.468 with a free T4 of 0.87 and free T3 of 2.96 Cardiology contacted regarding findings on the echocardiogram and recommend transfer to [facility] or [place] for second opinion and evaluation of the pannus of the aortic valve. The patient chose [place] as she had a bad experience at [facility] with a family member there. She is very tearful and anxious about transfer. I personally spoke with her fiance Chicho and cardiology spoke with her sister. Family member support to transfer. The patient is agreeable and arrangements have been started. Vital signs are stable afebrile at 97.7 heart rate 80-102. Respiratory rate 16- 18. They are nonlabored. Blood pressure 126/64 to 120/68 and she is currently on room air satting 94% utilize 2 L overnight satting 93% Discharge discussed with: patient, family, nurse, surgical product sales consultant Time spent discussing smoking cessation with patient: 3 to 10 minutes - Time Spent with Patient Total time spent providing and/or coordinating discharge services: Less than 30 minutes - Discharge Medications Home Medications: Aspirin [Lo-Dose Aspirin EC] 81 mg PO DAILY 07/20/15 [History] Montelukast [Singulair] 10 mg PO HS 07/20/15 [History] Pravastatin Sodium [Pravachol] 20 mg PO HS 07/20/15 [History] clonazePAM [Klonopin] 0.5 mg PO HS PRN 08/24/16 [History] methIMAzole [Tapazole] 2.5 mg PO Q48H 08/24/16 [History] Digoxin [Lanoxin] 0.125 mg PO DAILY 30 Days tablet 08/28/16 [Rx] Albuterol Sulfate [Albuterol Inhaler] 2 puff IH Q4HR PRN 11/18/16 [History] Escitalopram [Lexapro] 20 mg PO DAILY 11/18/16 [History] Vit A/Vit C/Vit E/Zinc/Copper [Preservision Areds Tablet] 1 each PO DAILY [History] Warfarin [Coumadin] 10 mg PO SUMOTUTHFR 11/18/16 [History] Ascorbic Acid [Vitamin C] 500 mg PO DAILY 05/09/17 [History] Diltiazem HCl [Diltiazem 24Hr Cd] 360 mg PO DAILY 05/09/17 [History] Metoprolol [Lopressor] 12.5 mg PO BID 05/09/17 [History] BuPROPion XL (24 HR) [Wellbutrin XL] 150 mg PO DAILY 12/14/17 [History] Furosemide [Lasix] 20 mg PO MOWEFR 12/14/17 [History] Losartan Potassium [Cozaar] 50 mg PO DAILY 12/14/17 [History] Mirabegron [Myrbetriq] 50 mg PO DAILY 12/14/17 [History] Warfarin [Coumadin] 5 mg PO WESA 12/14/17 [History] Allergies/Adverse Reactions: 3 Allergy/AdvReac Type Severity Reaction Status Date / Time Iodinated Contrast- Oral and Allergy Rash Verified 12/14/17 11:40 IV Dye Penicillins [PCN] Allergy Hives Verified 12/14/17 11:40 phenobarbital Allergy Seizure Verified 12/14/17 11:40 Sulfa (Sulfonamide Allergy Hives Verified 12/14/17 11:40 Antibiotics) Beta-Blockers AdvReac Difficulty Verified 12/14/17 11:40 (Beta-Adrenergic Bloc Breathing budesonide [From Symbicort] AdvReac Weakness Verified 12/14/17 11:40 Formoterol [From Symbicort] AdvReac Weakness Verified 12/14/17 11:40 nitrofurantoin AdvReac Dry Mucus Verified 12/14/17 11:40 Membranes barbituates Allergy Hives Uncoded 12/14/17 11:40 Date of admission: 12/15/17 14:35 Primary care physician: Desmond Howe MD Discharging clinician: Lucille Abdul Anticipated date of discharge: 12/16/17 - Constitutional Vitals: Temp Pulse Resp BP Pulse Ox 97.7 F 102 16 120/68 94 12/16/17 08:18 12/16/17 08:18 12/16/17 08:18 12/16/17 08:18 12/16/17 08:18 General appearance: Present: cooperative, A&O X 3, pleasant, answers questions appropriately - Head Head exam: Present: atraumatic, normocephalic - Eye Eye exam: Present: PERRL, conjuntiva pink, sclera anicteric. Absent: nystagmus Pupils: Present: PERRL - Neck Neck exam general surgery: Present: supple, trachea midline. Absent: lymphadenopathy - Respiratory Respiratory exam: Present: decreased breath sounds. Absent: accessory muscle use, rales, rhonchi, wheezes - Cardiovascular Cardiovascular exam: Present: clicks, irregular rhythm, +S1, +S2. Absent: diastolic murmur, gallop, rubs, systolic murmur - GI/Abdominal GI/Abdominal exam: Present: normal bowel sounds, soft, no peritoneal signs. Absent: distended, tenderness - Extremities Exam Extremities exam: Present: pedal edema, warm, radial pulses palpable and symmetrical. Absent: calf tenderness, cyanotic - Neurological Exam Neurological exam: Present: alert, CN II-XII intact, normal gait, oriented X3, no focal deficits, strengths equal and symetr throughout. Absent: motor sensory deficit, pronater drift, facial droop, speech deficit - Psychiatric Psychiatric exam: Present: anxious Additional comments: Became very tearful and is fearful of transfer to outside hospital. Emotional support has been provided - Skin Skin exam: Present: dry, intact - Patient Status Disposition: Transfer Other Condition: Fair Functional capacity at discharge: independent ambulation Overall status at discharge: patient is not back to baseline - Discharge Instructions Follow Up With: Desmond Howe MD [Primary Care Provider] - - Diet and Activity Activity: increase activity as tolerated Diet: low fat, low cholesterol, low salt diet
[2017-12-16] MEDS ORDERED: *HR* Warfarin 5 MG TABLET PO SCH (18:00)
== END 2017-12-16 13:18 | disposition other institution (70) | DRG 149 ==
LOC: EMEROO 11:30 → 3BNU 11:30
PROVIDERS: ADMIT Internal Medicine; ATTEND Registered Nurse

== ENCOUNTER 2017-12-26 14:20 | Observation (INO) ==
[2017-12-26 15:21] LABS: Immature Platelets 6.7 % (1.1-6.1); Red Cell Distribution Width 13.8 % (11.5-14.5)
[2017-12-26 15:24] LABS: INR 3.6; Prothrombin Time 39.9 Seconds (9.4-12.1)
[2017-12-26 15:25] LABS: Basophils # 0.1 K/mcL (0.0-0.2); Basophils % 1.5 %; Eosinophils # 0.2 K/mcL (0.0-0.6); Eosinophils % 2.6 %; Hematocrit 48.5 % (35.3-44.9); Hemoglobin 15.7 g/dL (11.5-15.4); Immature Granulocytes % 0.4 % (0-4); Lymphocytes # 1.3 K/mcL (0.6-4.6); Lymphocytes % 14.6 %; Mean Corpuscular HGB Conc 32.4 g/dL (31.6-35.5); Mean Platelet Volume 11.8 fL (9.4-12.4); Monocytes % 11.5 %; Neutrophils # 5.9 K/mcL (1.6-8.9); Platelet Count 266 K/mcL (140-400); Segmented Neutrophils % 69.4 %
[2017-12-26 15:27] LABS: Activated Partial Thrombo Time 48.7 Seconds (26.0-36.0)
[2017-12-26 15:40] LABS: Alanine Aminotransferase 27 Units/L (7-52); Albumin 4.1 g/dL (3.5-5.7); Albumin/Globulin Ratio 1.5 (1.1-2.2); Alkaline Phosphatase 133 Units/L (34-104); Aspartate Amino Transferase 36 Units/L (13-39); BUN/Creatinine Ratio 24 (6-26); Blood Urea Nitrogen 19 mg/dL (8-23); Calcium 9.8 mg/dL (8.6-10.3); Carbon Dioxide 35 mEq/L (23-29); Chloride 102 mEq/L (98-107); Globulin 2.8 g/dL (2.4-3.5); Glucose 100 mg/dL (70-105); Osmolality,Calculated 298 (280-300); Potassium 4.4 mEq/L (3.5-5.1); Sodium 143 mEq/L (136-145); Total Protein 6.9 g/dL (6.4-8.9); eGFR For African Americans > 60 (> 60); eGFR For Non-African Americans > 60 (> 60)
[2017-12-26 15:41] LABS: Troponin I 0.06 ng/mL (< 0.04)
--- NOTE | 2017-12-26 15:54 | Emergency Department Note ---
Disposition Clinical Impression: History of heart valve replacement, Supratherapeutic INR, Elevated troponin Atrial fibrillation Qualifiers: Atrial fibrillation type: chronic Qualified Code(s): I48.2 - Chronic atrial fibrillation Disposition: Still a Patient Condition: Good Referrals: Desmond Howe MD [Primary Care Provider] - Forms: ED Satisfaction Letter Time of Disposition: 19:50 General Adult HPI - General Chief complaint: ED Arrhythmia/Palpitations Stated complaint: cardiology sent her for afib rvr Time Seen by Provider: 12/26/17 15:11 Source: patient Limitations: no limitations Nursing Notes Reviewed: Yes Vital Signs Reviewed: Yes - History of Present Illness HPI Narrative: Patient is a 72-year-old female that presents to the emergency department from cardiology for atrial fibrillation with rapid ventricular response. Patient states that she has had this in the past. She states over the past few days she has been feeling dizzy and off balance. However she states that yesterday and today she has been feeling normal and went for a cardiology checkup today and they did an EKG and found her to be in A. fib with RVR. The patient was then sent here to the emergency department. It is the patient's understanding that she was sent here for admission. Pain Scale: 0 - Related Data Home Medications Medication Instructions Recorded Confirmed Aspirin [Lo-Dose Aspirin EC] 81 mg PO DAILY 07/20/15 12/26/17 Montelukast [Singulair] 10 mg PO HS 07/20/15 12/26/17 Pravastatin Sodium [Pravachol] 20 mg PO HS 07/20/15 12/26/17 clonazePAM [Klonopin] 0.5 mg PO HS PRN 08/24/16 12/26/17 methIMAzole [Tapazole] 2.5 mg PO Q48H 08/24/16 12/26/17 Albuterol Sulfate [Albuterol 2 puff IH Q4HR PRN 11/18/16 12/26/17 Inhaler] Escitalopram [Lexapro] 20 mg PO DAILY 11/18/16 12/26/17 Vit A/Vit C/Vit E/Zinc/Copper 1 each PO DAILY 11/18/16 12/26/17 [Preservision Areds Tablet] Warfarin [Coumadin] 10 mg PO SUMOTUTHFR 11/18/16 12/26/17 Ascorbic Acid [Vitamin C] 500 mg PO DAILY 05/09/17 12/26/17 Diltiazem HCl [Diltiazem 24Hr Cd] 360 mg PO DAILY 05/09/17 12/26/17 Metoprolol [Lopressor] 12.5 mg PO BID 05/09/17 12/26/17 BuPROPion XL (24 HR) [Wellbutrin 150 mg PO DAILY 12/14/17 12/26/17 XL] Furosemide [Lasix] 40 mg PO DAILY 12/14/17 12/26/17 Losartan Potassium [Cozaar] 50 mg PO DAILY 12/14/17 12/26/17 Mirabegron [Myrbetriq] 50 mg PO DAILY 12/14/17 12/26/17 Warfarin [Coumadin] 5 mg PO WESA 12/14/17 12/26/17 Bromfenac Sodium [Prolensa] 1 drop OP BID 12/26/17 12/26/17 Difluprednate [Durezol] 1 drop OP BID 12/26/17 12/26/17 Potassium Chloride [Klor-Con 10] 10 meq PO DAILY 12/26/17 12/26/17 Previous Rx's Medication Instructions Recorded Digoxin [Lanoxin] 0.125 mg PO DAILY 30 Days tablet 08/28/16 Allergies Allergy/AdvReac Type Severity Reaction Status Date / Time Iodinated Contrast- Oral and Allergy Rash Verified 12/26/17 14:26 IV Dye Penicillins [PCN] Allergy Hives Verified 12/26/17 14:26 phenobarbital Allergy Seizure Verified 12/26/17 14:26 Sulfa (Sulfonamide Allergy Hives Verified 12/26/17 14:26 Antibiotics) Beta-Blockers AdvReac Difficulty Verified 12/26/17 14:26 (Beta-Adrenergic Bloc Breathing budesonide [From Symbicort] AdvReac Weakness Verified 12/26/17 14:26 Formoterol [From Symbicort] AdvReac Weakness Verified 12/26/17 14:26 nitrofurantoin AdvReac Dry Mucus Verified 12/26/17 14:26 Membranes barbituates Allergy Hives Uncoded 12/26/17 14:26 All systems ED: reviewed and negative except as stated. Cardiovascular: Reports: other (Rapid heart rate). Denies: chest pain, palpitations Respiratory: Denies: dyspnea Gastrointestinal: Denies: abdominal pain, nausea, vomiting Past Medical History - Past Medical History Medical history: Reports: atrial fibrillation, CVA, hyperlipidemia, hypertension , other Surgical history: Reports: coronary bypass (CABG), heart valve replacement Psychiatric history: Reports: depression PUSHER OPERATOR history: Reports: no PUSHER OPERATOR history - Social History Smoking Status: Light tobacco smoker Smokeless Tobacco Status: No Alcohol use: Reports: none Drug use: Reports: none Physical Exam - General Limitations: no limitations General appearance: alert, in no apparent distress - Head Head exam: atraumatic, normocephalic - Eye Eye exam: Present: normal appearance, EOMI - Neck Neck exam: Present: normal inspection, full ROM, trachea midline - Cardiovascular Cardiovascular exam: Present: regular rate, normal rhythm, normal heart sounds, +S1, +S2 - Abdominal Exam Abdominal exam: Present: soft, Non-Tender, normal bowel sounds - Neurological Exam Neurological exam: Present: alert, oriented X3 - Psychiatric Psychiatric exam: Present: normal affect, normal mood - Skin Skin exam: Present: warm, dry, intact Course Vital Signs Temperature 98.2 F 12/26/17 14:26 Pulse Rate 112 12/26/17 14:26 Respiratory Rate 20 12/26/17 14:26 Blood Pressure 117/80 12/26/17 14:26 O2 Sat by Pulse Oximetry 97 12/26/17 14:26 Temperature 98.2 F 12/26/17 14:26 Pulse Rate 94 12/26/17 18:45 Respiratory Rate 20 12/26/17 18:45 Blood Pressure 134/82 12/26/17 18:45 O2 Sat by Pulse Oximetry 93 12/26/17 18:45 Oxygen Delivery Oxygen Delivery Room Air Medical Decision Making - [facility] Narrative Medical decision making narrative: Due to the patient being sent to the emergency department for A. fib with RVR we will obtain a CBC, CMP, troponin, chest x-ray, EKG and regulation studies. Patient has a troponin of 0.06 over this appears to be chronic for her and the patient denies any active chest pain at this time. The patient's alkaline phosphatase is 133. Patient does have an INR of 3.6 slightly supratherapeutic due to her having heart valve replacements. I called and spoke with Drs. Hernandez and she had stated that if the patient's rate was controlled the patient to be discharged home we gave a dose of Lopressor here in the emergency department. The patient's rate was not controlled and felt the patient needed to be admitted to the hospital. The patient was accepted by the hospitalist and will be admitted for further evaluation and management. - Lab Data Lab results reviewed: Yes I reviewed the patient's lab results. Result diagrams: 12/26/17 14:57 12/26/17 14:57 Lab Results 12/26/17 12/26/17 12/26/17 Range/Units 14:51 14:57 14:57 WBC 8.5 (4.3-11.1) K/mcL RBC 4.90 (3.82-4.97) M/mcL Hgb 15.7 H (11.5-15.4) g/dL Hct 48.5 H (35.3-44.9) % MCV 99.0 (83.0-100.0) fL MCH 32.0 (28.0-33.3) pg MCHC 32.4 (31.6-35.5) g/dL RDW 13.8 (11.5-14.5) % Plt Count 266 (140-400) K/mcL MPV 11.8 (9.4-12.4) fL Immature Gran % 0.4 (0-4) % Seg Neutrophils % 69.4 % Lymphocytes % 14.6 % Monocytes % 11.5 % Eosinophils % 2.6 % Basophils % 1.5 % Neutrophils # 5.9 (1.6-8.9) K/mcL Lymphocytes # 1.3 (0.6-4.6) K/mcL Monocytes # 1.0 (0.0-1.3) K/mcL Eosinophils # 0.2 (0.0-0.6) K/mcL Basophils # 0.1 (0.0-0.2) K/mcL Immature Plt Fraction 6.7 H (1.1-6.1) % PT 39.9 H (9.4-12.1) Seconds INR 3.6 APTT 48.7 H (26.0-36.0) Seconds Sodium 143 (136-145) mEq/L Potassium 4.4 (3.5-5.1) mEq/L Chloride 102 (98-107) mEq/L Carbon Dioxide 35 H (23-29) mEq/L BUN 19 (8-23) mg/dL Creatinine 0.79 (0.60-1.20) mg/dL Est GFR ( Amer) > 60 (> 60) Est GFR (Non-Af Amer) > 60 (> 60) BUN/Creatinine Ratio 24 (6-26) Glucose 100 (70-105) mg/dL Calculated Osmolality 298 (280-300) Calcium 9.8 (8.6-10.3) mg/dL Total Bilirubin 1.0 (0.3-1.0) mg/dL AST 36 (13-39) Units/L ALT 27 (7-52) Units/L Alkaline Phosphatase 133 H (34-104) Units/L Troponin I 0.06 H* (< 0.04) ng/mL Serum Total Protein 6.9 (6.4-8.9) g/dL Albumin 4.1 (3.5-5.7) g/dL Globulin 2.8 (2.4-3.5) g/dL Albumin/Globulin Ratio 1.5 (1.1-2.2) - Radiology Data Radiology results reviewed: Yes I reviewed the patient's radiology results. Chest X-Ray 12/26/17 14:33 IMPRESSION: 1. Cardiomegaly with no evidence of CHF 2. Probable COPD with no acute infiltrate D/ / Tyson Chamberlain MD / Tyson Chamberlain MD Interpreting Provider: Tyson Chamberlain MD - EKG Data EKG #1 EKG attestation: Yes I reviewed and interpreted this EKG. EKG results narrative: EKG shows atrial fibrillatio the rate of 113 bpm, , QRS duration of 97, QTc is 379. This is compared to previous EKG on 12/14/17 which shows atrial fibrillation at a rate of 95.
[2017-12-26] MEDS ORDERED: *HR* Metoprolol 5 MG/5 ML VIAL IVP ONE (16:05)
--- NOTE | 2017-12-26 16:12 | Emergency Department Note ---
Disposition Clinical Impression: Atrial fibrillation Qualifiers: Atrial fibrillation type: chronic Qualified Code(s): I48.2 - Chronic atrial fibrillation Disposition: Still a Patient Referrals: Desmond Howe MD [Primary Care Provider] - Forms: ED Satisfaction Letter General Adult HPI - General Chief complaint: ED Arrhythmia/Palpitations Stated complaint: cardiology sent her for afib rvr Time Seen by Provider: 12/26/17 15:11 Source: patient Limitations: no limitations - History of Present Illness Pain Scale: 0 - Related Data Home Medications Medication Instructions Recorded Confirmed Aspirin [Lo-Dose Aspirin EC] 81 mg PO DAILY 07/20/15 12/14/17 Montelukast [Singulair] 10 mg PO HS 07/20/15 12/14/17 Pravastatin Sodium [Pravachol] 20 mg PO HS 07/20/15 12/14/17 clonazePAM [Klonopin] 0.5 mg PO HS PRN 08/24/16 12/14/17 methIMAzole [Tapazole] 2.5 mg PO Q48H 08/24/16 12/14/17 Albuterol Sulfate [Albuterol 2 puff IH Q4HR PRN 11/18/16 12/14/17 Inhaler] Escitalopram [Lexapro] 20 mg PO DAILY 11/18/16 12/14/17 Vit A/Vit C/Vit E/Zinc/Copper 1 each PO DAILY 11/18/16 12/14/17 [Preservision Areds Tablet] Warfarin [Coumadin] 10 mg PO SUMOTUTHFR 11/18/16 12/14/17 Ascorbic Acid [Vitamin C] 500 mg PO DAILY 05/09/17 12/14/17 Diltiazem HCl [Diltiazem 24Hr Cd] 360 mg PO DAILY 05/09/17 12/14/17 Metoprolol [Lopressor] 12.5 mg PO BID 05/09/17 12/14/17 BuPROPion XL (24 HR) [Wellbutrin 150 mg PO DAILY 12/14/17 12/14/17 XL] Furosemide [Lasix] 20 mg PO MOWEFR 12/14/17 12/14/17 Losartan Potassium [Cozaar] 50 mg PO DAILY 12/14/17 12/14/17 Mirabegron [Myrbetriq] 50 mg PO DAILY 12/14/17 12/14/17 Warfarin [Coumadin] 5 mg PO WESA 12/14/17 12/14/17 Previous Rx's Medication Instructions Recorded Digoxin [Lanoxin] 0.125 mg PO DAILY 30 Days tablet 08/28/16 Allergies Allergy/AdvReac Type Severity Reaction Status Date / Time Iodinated Contrast- Oral and Allergy Rash Verified 12/26/17 14:26 IV Dye Penicillins [PCN] Allergy Hives Verified 12/26/17 14:26 phenobarbital Allergy Seizure Verified 12/26/17 14:26 Sulfa (Sulfonamide Allergy Hives Verified 12/26/17 14:26 Antibiotics) Beta-Blockers AdvReac Difficulty Verified 12/26/17 14:26 (Beta-Adrenergic Bloc Breathing budesonide [From Symbicort] AdvReac Weakness Verified 12/26/17 14:26 Formoterol [From Symbicort] AdvReac Weakness Verified 12/26/17 14:26 nitrofurantoin AdvReac Dry Mucus Verified 12/26/17 14:26 Membranes barbituates Allergy Hives Uncoded 12/26/17 14:26 Cardiovascular: Reports: other (Rapid heart rate). Denies: chest pain, palpitations Respiratory: Denies: dyspnea Gastrointestinal: Denies: abdominal pain, nausea, vomiting Past Medical History - Past Medical History Medical history: Reports: atrial fibrillation, CVA, hyperlipidemia, hypertension , other Surgical history: Reports: coronary bypass (CABG), heart valve replacement Psychiatric history: Reports: depression YARN SIZER history: Reports: no YARN SIZER history - Social History Smoking Status: Light tobacco smoker Smokeless Tobacco Status: No Alcohol use: Reports: none Drug use: Reports: none Physical Exam - General Limitations: no limitations General appearance: alert, in no apparent distress Course Vital Signs Temperature 98.2 F 12/26/17 14:26 Pulse Rate 112 12/26/17 14:26 Respiratory Rate 20 12/26/17 14:26 Blood Pressure 117/80 12/26/17 14:26 O2 Sat by Pulse Oximetry 97 12/26/17 14:26 Temperature 98.2 F 12/26/17 14:26 Pulse Rate 112 12/26/17 14:26 Respiratory Rate 20 12/26/17 14:26 Blood Pressure 117/80 12/26/17 14:26 O2 Sat by Pulse Oximetry 97 12/26/17 14:26 Oxygen Delivery Oxygen Delivery Room Air Medical Decision Making - Lab Data Result diagrams: 12/26/17 14:57 12/26/17 14:57 Lab Results 12/26/17 12/26/17 12/26/17 Range/Units 14:51 14:57 14:57 WBC 8.5 (4.3-11.1) K/mcL RBC 4.90 (3.82-4.97) M/mcL Hgb 15.7 H (11.5-15.4) g/dL Hct 48.5 H (35.3-44.9) % MCV 99.0 (83.0-100.0) fL MCH 32.0 (28.0-33.3) pg MCHC 32.4 (31.6-35.5) g/dL RDW 13.8 (11.5-14.5) % Plt Count 266 (140-400) K/mcL MPV 11.8 (9.4-12.4) fL Immature Gran % 0.4 (0-4) % Seg Neutrophils % 69.4 % Lymphocytes % 14.6 % Monocytes % 11.5 % Eosinophils % 2.6 % Basophils % 1.5 % Neutrophils # 5.9 (1.6-8.9) K/mcL Lymphocytes # 1.3 (0.6-4.6) K/mcL Monocytes # 1.0 (0.0-1.3) K/mcL Eosinophils # 0.2 (0.0-0.6) K/mcL Basophils # 0.1 (0.0-0.2) K/mcL Immature Plt Fraction 6.7 H (1.1-6.1) % PT 39.9 H (9.4-12.1) Seconds INR 3.6 APTT 48.7 H (26.0-36.0) Seconds Sodium 143 (136-145) mEq/L Potassium 4.4 (3.5-5.1) mEq/L Chloride 102 (98-107) mEq/L Carbon Dioxide 35 H (23-29) mEq/L BUN 19 (8-23) mg/dL Creatinine 0.79 (0.60-1.20) mg/dL Est GFR ( Amer) > 60 (> 60) Est GFR (Non-Af Amer) > 60 (> 60) BUN/Creatinine Ratio 24 (6-26) Glucose 100 (70-105) mg/dL Calculated Osmolality 298 (280-300) Calcium 9.8 (8.6-10.3) mg/dL Total Bilirubin 1.0 (0.3-1.0) mg/dL AST 36 (13-39) Units/L ALT 27 (7-52) Units/L Alkaline Phosphatase 133 H (34-104) Units/L Troponin I 0.06 H* (< 0.04) ng/mL Serum Total Protein 6.9 (6.4-8.9) g/dL Albumin 4.1 (3.5-5.7) g/dL Globulin 2.8 (2.4-3.5) g/dL Albumin/Globulin Ratio 1.5 (1.1-2.2) Attestation Statement - Attestation Attestation: I examined this patient and my medical decision-making was reviewed with the Resident Physician. I agree with the documented findings, disposition and treatment plan as described except to the extent set forth below. 72 year old femgarfield who presentse [facility] ED from the cardiology office referred by Dr. Johnson for aifb with rvr with an initial rate of 120. PAtient has a history of afib and takes mutliple rate controlling medicatiosn for it. PAtinet states [facility] and afib evaluation . Patient states that she is asymptomatic now and feels good enough to go home and was told by the operations analyst to go to the ED for evlauation and possible admission [facility]. trop is 0.06 which is her baseline and otherwise has a heart of 112 and is asymptomatic. We will consult with cards before official disipsition for admission
[2017-12-26] MEDS ORDERED: *HR* Warfarin 10 MG TABLET PO SCH (18:00)
--- NOTE | 2017-12-26 21:23 | Internal Med History&Physical ---
Date of Encounter: 12/26/17 Time of Encounter: 22:01 Internal Medicine - H&P: HPI Admitted From: Home Plans for Post Hospital Care: Home History of present illness: Ms. Slade is a 72 year old female with history of known A. fib, CABG due to valvular disease hyper thyroidism, COPD came to emergency room after sending by her artist and repertoire manager's. Patient was seen by her artist and repertoire manager at his office and found to be in A. fib with RVR and heart rate in 130s along with severe anxiety therefore it was decided to send ER. In the ER 1 dose of metoprolol IV 5 mg given and her heart rate came down to 90s. He had a medication called on-call hospitalists for the admission with diagnosis of A. fib with RVR in place troponin. During my interview patient feels comfortable with heart rate 96 on monitor. Patient denies any fever, chills, nausea, vomiting, chest pain, shortness of breath, abdominal pain, urinary complaints, diarrhea. Patient has chronic dizziness intermittently but seems like getting better. Past Med Surg Social Fam HX - Past Medical History Medical history: atrial fibrillation, CVA, hyperlipidemia, hypertension, other Psychiatric history: depression - Past Surgical History Surgical History: coronary bypass (CABG), heart valve replacement - Social History Smoking Status: Light tobacco smoker Smokeless Tobacco Status: No Alcohol use: none Drug use: none - Family History Father Adopted: No Family Member Ethnicity: Non- Living Status: Hx Family Cardiac Disorders: Yes Hx Family Respiratory Disorders: Yes (Emphysema) Hx Family Cancer: No Hx Family GI Disorders: No Hx Family Endocrine Disorder: No Hx Family Neuromuscular Disorders: No Hx Family Neurologic Disorders: No Hx Family HEENT Disorders: No Hx Family Autoimmune Disorders: No Mother Living Status: Hx Family Neurologic Disorders: Yes (dementia) - Additional Family History Additional family history: Reviewed. Noncontributory at this point Internal Medicine - H&P: Meds Aspirin [Lo-Dose Aspirin EC] 81 mg PO DAILY 07/20/15 [History] Montelukast [Singulair] 10 mg PO HS 07/20/15 [History] Pravastatin Sodium [Pravachol] 20 mg PO HS 07/20/15 [History] clonazePAM [Klonopin] 0.5 mg PO HS PRN 08/24/16 [History] methIMAzole [Tapazole] 2.5 mg PO Q48H 08/24/16 [History] Digoxin [Lanoxin] 0.125 mg PO DAILY 30 Days tablet 08/28/16 [Rx] Albuterol Sulfate [Albuterol Inhaler] 2 puff IH Q4HR PRN 11/18/16 [History] Escitalopram [Lexapro] 20 mg PO DAILY 11/18/16 [History] Vit A/Vit C/Vit E/Zinc/Copper [Preservision Areds Tablet] 1 each PO DAILY [History] Warfarin [Coumadin] 10 mg PO SUMOTUTHFR 11/18/16 [History] Ascorbic Acid [Vitamin C] 500 mg PO DAILY 05/09/17 [History] Diltiazem HCl [Diltiazem 24Hr Cd] 360 mg PO DAILY 05/09/17 [History] Metoprolol [Lopressor] 12.5 mg PO BID 05/09/17 [History] BuPROPion XL (24 HR) [Wellbutrin XL] 150 mg PO DAILY 12/14/17 [History] Furosemide [Lasix] 40 mg PO DAILY 12/14/17 [History] Losartan Potassium [Cozaar] 50 mg PO DAILY 12/14/17 [History] Mirabegron [Myrbetriq] 50 mg PO DAILY 12/14/17 [History] Warfarin [Coumadin] 5 mg PO WESA 12/14/17 [History] Bromfenac Sodium [Prolensa] 1 drop OP BID 12/26/17 [History] Difluprednate [Durezol] 1 drop OP BID 12/26/17 [History] Potassium Chloride [Klor-Con 10] 10 meq PO DAILY 12/26/17 [History] 3 Allergy/AdvReac Type Severity Reaction Status Date / Time Iodinated Contrast- Oral and Allergy Rash Verified 12/26/17 14:26 IV Dye Penicillins [PCN] Allergy Hives Verified 12/26/17 14:26 phenobarbital Allergy Seizure Verified 12/26/17 14:26 Sulfa (Sulfonamide Allergy Hives Verified 12/26/17 14:26 Antibiotics) Beta-Blockers AdvReac Difficulty Verified 12/26/17 14:26 (Beta-Adrenergic Bloc Breathing budesonide [From Symbicort] AdvReac Weakness Verified 12/26/17 14:26 Formoterol [From Symbicort] AdvReac Weakness Verified 12/26/17 14:26 nitrofurantoin AdvReac Dry Mucus Verified 12/26/17 14:26 Membranes barbituates Allergy Hives Uncoded 12/26/17 14:26 All Systems PM: A 10-system review of systems was performed and is negative for pertinent findings except as documented above in the HPI. - Constitutional Vitals: Temp Pulse Resp BP Pulse Ox 98.2 F 94 20 134/82 93 12/26/17 14:26 12/26/17 18:45 12/26/17 18:45 12/26/17 18:45 12/26/17 18:45 Exam: General appearance: No acute distress, A&O X 3 Head exam: Atraumatic Eye exam: EOMI, PERRLA ENT exam: Moist oral mucosa Neck nontender, supple Respiratory exam: Clear to auscultation bilaterally Cardiovascular exam: Mild tachycardia with A. fib, no systolic murmur Abdominal exam: Soft, nontender, nondistended, positive bowel sounds Extremities exam: No calf tenderness, no pedal edema Present: Skin-no rash, warm, dry, intact Neurological exam: Alert, awake, oriented 3, CN II-XII intact, no focal deficits. No facial droop. Normal speech. Normal gait. Internal Med - H&P Results - Labs CBC & Chem 7: 12/27/17 06:43 12/27/17 06:43 Labs: Short CBC 12/26/17 Range/Units 14:57 WBC 8.5 (4.3-11.1) K/mcL Hgb 15.7 H (11.5-15.4) g/dL Hct 48.5 H (35.3-44.9) % Plt Count 266 (140-400) K/mcL Neutrophils # 5.9 (1.6-8.9) K/mcL BMP 12/26/17 14:57 Sodium 143 Potassium 4.4 Chloride 102 Carbon Dioxide 35 H BUN 19 Creatinine 0.79 Glucose 100 Calcium 9.8 Cardiac Enzymes 12/26/17 Range/Units 14:57 Troponin I 0.06 H* (< 0.04) ng/mL Liver Function 12/26/17 Range/Units 14:57 Total Bilirubin 1.0 (0.3-1.0) mg/dL AST 36 (13-39) Units/L ALT 27 (7-52) Units/L Alkaline Phosphatase 133 H (34-104) Units/L Albumin 4.1 (3.5-5.7) g/dL - Impressions ITS Impressions Chest X-Ray 12/26/17 14:33 IMPRESSION: 1. Cardiomegaly with no evidence of CHF 2. Probable COPD with no acute infiltrate D/ / Tyson Chamberlain MD / Tyson Chamberlain MD Interpreting Provider: Tysno Chamberlain MD - Assessment and plan (1) Atrial fibrillation Current Visit: Yes Status: Acute Assessment and plan: A. fib with RVR. History of chronic A. fib. Therapeutic INR. Will continue home medication Channel Radha and Digoxin Same Dose but Increase Beta Radha Metoprolol 25 Mg Twice a Day. We Will Continue Warfarin with Routine INR Monitoring. Textile Engraver's already got consulted by ER physician. Telemetry bed. Qualifiers: Atrial fibrillation type: chronic Qualified Code(s): I48.2 - Chronic atrial fibrillation (2) Elevated troponin Current Visit: Yes Status: Acute Assessment and plan: No angina equivalent symptom denies chest pain or shortness of breath. Most likely due to A. fib with RVR but will monitor cardiac enzyme serially. Continue home medication including aspirin, beta radha, statin. Cardiology is on board. (3) Hyperthyroidism Current Visit: No Status: Chronic Assessment and plan: Chronic and has been following parent aide, OPD basis. Will order TSH and T4 just to rule out underlying contributing factor for rapid heartbeat. Continue home medicine. (4) DVT prophylaxis Current Visit: No Status: Chronic - Time Spent With Patient Total time spent is greater than 50% in coordination of care (as documented) at patient's floor/unit and/or counseling patient: 25 - 35 minutes
[2017-12-26] MEDS ORDERED: Naloxone 0.4 MG/ML INJ IVP PRN (21:45)
[2017-12-26] MEDS ORDERED: clonazePAM 0.5 MG TABLET PO PRN (21:50)
[2017-12-26] MEDS ORDERED: methIMAzole 5 MG TABLET PO SCH (22:00)
[2017-12-26 22:52] LABS: Thyroid Stimulating Hormone 3.637 mcIU/mL (0.340-5.600)
[2017-12-27 06:56] LABS: Basophils # 0.1 K/mcL (0.0-0.2); Basophils % 1.5 %; Eosinophils # 0.3 K/mcL (0.0-0.6); Eosinophils % 3.4 %; Hematocrit 44.3 % (35.3-44.9); Immature Granulocytes % 0.5 % (0-4); Lymphocytes % 12.4 %; Mean Corpuscular HGB Conc 31.6 g/dL (31.6-35.5); Mean Corpuscular Hemoglobin 31.3 pg (28.0-33.3); Mean Corpuscular Volume 98.9 fL (83.0-100.0); Mean Platelet Volume 11.8 fL (9.4-12.4); Monocytes # 1.2 K/mcL (0.0-1.3); Monocytes % 14.7 %; Neutrophils # 5.6 K/mcL (1.6-8.9); Platelet Count 230 K/mcL (140-400); Red Blood Count 4.48 M/mcL (3.82-4.97); Red Cell Distribution Width 13.8 % (11.5-14.5); Segmented Neutrophils % 67.5 %
[2017-12-27 07:05] LABS: INR 3.6; Prothrombin Time 39.3 Seconds (9.4-12.1)
[2017-12-27 07:23] LABS: Troponin I 0.05 ng/mL (< 0.04)
[2017-12-27 07:51] LABS: BUN/Creatinine Ratio 26 (6-26); Blood Urea Nitrogen 19 mg/dL (8-23); Calcium 9.2 mg/dL (8.6-10.3); Carbon Dioxide 32 mEq/L (23-29); Chloride 104 mEq/L (98-107); Glucose 97 mg/dL (70-105); Osmolality,Calculated 298 (280-300); Potassium 4.1 mEq/L (3.5-5.1); Sodium 143 mEq/L (136-145); eGFR For African Americans > 60 (> 60); eGFR For Non-African Americans > 60 (> 60)
[2017-12-27] MEDS: *HR* Digoxin 0.125 MG TABLET PO SCH (07:56)
[2017-12-27] MEDS: Ascorbic Acid 500 MG TABLET PO SCH (07:56)
[2017-12-27] MEDS: Diltiazem CD (24hr) 180 MG CAPSULE PO SCH (07:56)
[2017-12-27] MEDS: Aspirin Enteric Coated 81 MG Tablet PO SCH (07:57)
[2017-12-27] MEDS: BuPROPion XL (24 HR) 150 MG TABLET PO SCH (07:57)
[2017-12-27] MEDS ORDERED: (Bromfenac Sodium [Prolensa] 1 DROP) OP SCH (09:00)
[2017-12-27] MEDS ORDERED: Ketorolac OPTH Soln 5 ML BOTTLE RIGHT EYE SCH (09:00)
[2017-12-27] MEDS ORDERED: PrednisoLONE Acetate 1% Opth 5 ML BOTTLE RIGHT EYE SCH (09:00)
[2017-12-27] MEDS ORDERED: (Difluprednate [Durezol] 1 DROP) OP SCH (09:00)
--- NOTE | 2017-12-27 11:29 | Event Note ---
Date of Encounter: 12/27/17 Time of Encounter: 11:28 Patient needs to be seen by cardiology. Discharge only after their recommendations.
--- NOTE | 2017-12-27 11:33 | Discharge Summary ---
- NOTES TO OUTPATIENT PROVIDER Notes to Outpatient Provider: Due to afib with RVR, we have increased Metoprolol to 25 mg BID. Losartan was cut in half at discharge to prevent hypotension Orders not resulted at time of discharge: Pending orders 12/27/17 12:45 Troponin I Routine 12/28/17 04:00 PT/INR [Prothrombin Time INR] [COAG] AM 0400 12/29/17 04:00 PT/INR [Prothrombin Time INR] [COAG] AM 0400 12/30/17 04:00 PT/INR [Prothrombin Time INR] [COAG] AM 0400 Date of Encounter: 12/28/17 Time of Encounter: 11:29 - Discharge Diagnosis (1) Atrial fibrillation Priority: Primary Status: Acute Qualifiers: Atrial fibrillation type: chronic Qualified Code(s): I48.2 - Chronic atrial fibrillation (2) Elevated troponin Priority: Primary Status: Acute (3) Hyperthyroidism Priority: Secondary Status: Chronic Hospital course: Ms. Slade is a 72 year old female with history of known A. fib, CABG due to valvular disease hyperthyroidism, COPD came to emergency room after sending by her health sciences program coordinator's. Patient was seen by her health sciences program coordinator at his office and found to be in A. fib with RVR and heart rate in 130s along with severe anxiety therefore it was decided to send ER. In the ER 1 dose of metoprolol IV 5 mg given and her heart rate came down to 90s. She was admitted and had her metoprolol uptitrated to 25 mg BID from 12.5 mg BID. Losartan was cut in half to 25 mg daily. She was advised to take lasix QOD per cardiology's recs. Rate was controlled throughout the stay. Stable for d/c 12/28. - Time Spent with Patient Total time spent providing and/or coordinating discharge services: Greater than 30 minutes - Discharge Medications Prescriptions: Furosemide [Lasix] 20 mg PO QMWF #90 tablet Losartan [Cozaar] 25 mg PO DAILY #90 tablet Metoprolol [Lopressor] 25 mg PO BID #180 tablet Home Medications: Aspirin [Lo-Dose Aspirin EC] 81 mg PO DAILY 07/20/15 [History] Montelukast [Singulair] 10 mg PO HS 07/20/15 [History] Pravastatin Sodium [Pravachol] 20 mg PO HS 07/20/15 [History] clonazePAM [Klonopin] 0.5 mg PO HS PRN 08/24/16 [History] methIMAzole [Tapazole] 2.5 mg PO Q48H 08/24/16 [History] Digoxin [Lanoxin] 0.125 mg PO DAILY 30 Days tablet 08/28/16 [Rx] Albuterol Sulfate [Albuterol Inhaler] 2 puff IH Q4HR PRN 11/18/16 [History] Escitalopram [Lexapro] 20 mg PO DAILY 11/18/16 [History] Vit A/Vit C/Vit E/Zinc/Copper [Preservision Areds Tablet] 1 each PO DAILY [History] Warfarin [Coumadin] 10 mg PO SUMOTUTHFR 11/18/16 [History] Ascorbic Acid [Vitamin C] 500 mg PO DAILY 05/09/17 [History] Diltiazem HCl [Diltiazem 24Hr Cd] 360 mg PO DAILY 05/09/17 [History] BuPROPion XL (24 HR) [Wellbutrin Xl] 150 mg PO DAILY 12/14/17 [History] Mirabegron [Myrbetriq] 50 mg PO DAILY 12/14/17 [History] Warfarin [Coumadin] 5 mg PO WESA 12/14/17 [History] Bromfenac Sodium [Prolensa] 1 drop OP BID 12/26/17 [History] Difluprednate [Durezol] 1 drop OP BID 12/26/17 [History] Potassium Chloride [Klor-Con 10] 10 meq PO DAILY 12/26/17 [History] Furosemide [Lasix] 20 mg PO QMWF #90 tablet 12/28/17 [Rx] Losartan [Cozaar] 25 mg PO DAILY #90 tablet 12/28/17 [Rx] Metoprolol [Lopressor] 25 mg PO BID #180 tablet 12/28/17 [Rx] Allergies/Adverse Reactions: 3 Allergy/AdvReac Type Severity Reaction Status Date / Time Iodinated Contrast- Oral and Allergy Rash Verified 12/26/17 14:26 IV Dye Penicillins [PCN] Allergy Hives Verified 12/26/17 14:26 phenobarbital Allergy Seizure Verified 12/26/17 14:26 Sulfa (Sulfonamide Allergy Hives Verified 12/26/17 14:26 Antibiotics) Beta-Blockers AdvReac Difficulty Verified 12/26/17 14:26 (Beta-Adrenergic Bloc Breathing budesonide [From Symbicort] AdvReac Weakness Verified 12/26/17 14:26 Formoterol [From Symbicort] AdvReac Weakness Verified 12/26/17 14:26 nitrofurantoin AdvReac Dry Mucus Verified 12/26/17 14:26 Membranes barbituates Allergy Hives Uncoded 12/26/17 14:26 Date of admission: 12/26/17 21:30 Primary care physician: Desmond Howe MD - Constitutional Vitals: Temp Pulse Resp BP Pulse Ox 97.6 F 93 16 107/65 98 12/27/17 11:06 12/27/17 11:06 12/27/17 11:06 12/27/17 11:06 12/27/17 11:06 Exam: GEN: NAD CVS: Irregular. S1, S2, No m/r/g RESP: CTAB ABD: Soft, NT, ND, +BS EXT: No edema. 2+ DP. No rashes NEURO: Nonfocal - Patient Status Disposition: Home, Self-Care Condition: Fair Overall status at discharge: patient is progressing back to baseline - Discharge Instructions Follow Up With: Desmond Howe MD [Primary Care Provider] - 01/12/18 1:00 pm (Please follow up as schedule...) - Diet and Activity Activity: increase activity as tolerated Diet: low salt diet - VTE Reasons for not Prescribing Prophylaxis: Not indicated-Anticoagulated or INR therapeutic
--- NOTE | 2017-12-27 11:56 | Internal Med Progress Note ---
Date of Encounter: 12/27/17 Time of Encounter: 11:55 - Assessment and plan (1) Atrial fibrillation Current Visit: Yes Status: Acute Assessment and plan: A. fib with RVR. Resolved now. Continue Coumadin. Metoprolol was increased on admission. We will leave further changes to cardiology. Continue Cardizem and digoxin as is for now. Continue telemetry Qualifiers: Atrial fibrillation type: chronic Qualified Code(s): I48.2 - Chronic atrial fibrillation (2) Elevated troponin Current Visit: Yes Status: Acute Assessment and plan: Remained that 0.05 times today. No chest pain. Likely demand ischemia. Continue home medication including aspirin, beta ros, statin. Cardiology is on board. 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 Normal TSH here. Normal free T4.. (4) DVT prophylaxis Current Visit: No Status: Chronic Assessment and plan: On Coumadin therapeutic. - Time Spent With Patient Total time spent is greater than 50% in coordination of care (as documented) at patient's floor/unit and/or counseling patient: - Subjective Interval history: Patient was seen and examined. No acute events. 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 fib with RVR. Metoprolol was increased on admission and rate is controlled now. Recent admission here and a transfer to [place] for possible valve densities which the patient tells me was not an issue. I do not have records of that. She is on Coumadin for mechanical valve and A. fib. - Constitutional Vitals: Temp Pulse Resp BP Pulse Ox 97.6 F 93 16 107/65 98 12/27/17 11:06 12/27/17 11:06 12/27/17 11:06 12/27/17 11:06 12/27/17 11:06 Exam: GEN: NAD CVS: Irregular. S1, S2, No m/r/g RESP: CTAB ABD: Soft, NT, ND, +BS EXT: No edema. 2+ DP. No rashes NEURO: Nonfocal Internal Medicine: Result - Labs CBC & Chem 7: 12/27/17 06:43 12/27/17 06:43 Labs: Short CBC 12/27/17 Range/Units 06:43 WBC 8.2 (4.3-11.1) K/mcL Hgb 14.0 D (11.5-15.4) g/dL Hct 44.3 (35.3-44.9) % Plt Count 230 (140-400) K/mcL Neutrophils # 5.6 (1.6-8.9) K/mcL BMP 12/27/17 06:43 Sodium 143 Potassium 4.1 Chloride 104 Carbon Dioxide 32 H BUN 19 Creatinine 0.73 Glucose 97 Calcium 9.2 Cardiac Enzymes 12/26/17 12/27/17 Range/Units 22:04 06:43 Troponin I 0.05 H* 0.05 H* (< 0.04) ng/mL - ABG Interpretation ABG results: PT/INR, D-dimer PT 39.3 Seconds (9.4-12.1) H 12/27/17 06:43 - VTE Reasons for not Prescribing Prophylaxis: Not indicated-Anticoagulated or INR therapeutic Consult Discharge Plan - Plan Referrals: Desmond Howe MD [Primary Care Provider] - Prescriptions: Metoprolol [Lopressor] 25 mg PO BID #60 tablet
--- NOTE | 2017-12-27 12:23 | Cardiology Consult Note ---
Addendum entered and electronically signed by Kike Bah CNP 12/27/17 14:05: Upon further review, pt was on Lopressor 12.5mg BID at home. Dose has been increased as inpt to 25mg BID. Recommend continuing at the increased dose of 25mg BID. Original Note: <Kike Bah - Last Filed: 12/27/17 12:19> Date of Encounter: 12/27/17 Time of Encounter: 12:20 Assessment and Plan (1) Atrial fibrillation Current Visit: Yes Status: Acute Known chronic A-Fib. Presented as outpt yesterday RVR HR 120s, sent to ED. She received 1 dose of IV lopressor 5mg. 12 hr tele AVG HR 108. Home meds included Lopressor 25mg BID, Cardizem 360mg daily and Digoxin 125mcg daily. HR is currently 50s-60s on telemetry. Will not increase any AV genna blockers at this time. Will decrease Cozaar to 25mg daily since BP is marginal and in the event that her BB would need to be increased. Anticoagulated on Coumadin. Anticipate sign off once seen and evaluated by Dr. Johnson. Qualifiers: Atrial fibrillation type: chronic Qualified Code(s): I48.2 - Chronic atrial fibrillation (2) Elevated troponin Current Visit: Yes Status: Acute Troponin 0.06, 0.05, 0.05 in setting of A-Fib RVR. Suspect demand ischemia, nondiagnostic for ACS. Pt denies chest pain. No ischemic EKG changes. EF preserved on recent echo. (3) Mechanical heart valve present Current Visit: No Status: Acute Mechanical mitral and aortic valve replacements in the , on coumadin. INR 3.6. Recent echo 12/15/17 LVEF 55%. 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 No prosthetic aortic stenosis/ obstruction by Doppler parameters. Mechanical mitral valve is not well visualized. Moderate-severe tricuspid regurgitation. She was sent to [facility] for further evaluation, underwent JIMMY, agreed with pannus formation, but no intervention was warranted. No repeat testing warranted at this time. Discussion w patient/family: The assessment and plan as outlined above was discussed with the patient and/or family members who expressed understanding and agreement. All questions were answered. Thank you for involving us in the care of your patient. Please call with any questions. I will discuss all the above with Dr. Johnson and make changes as necessary. History of Present Illness Consult date: 12/27/17 Requesting physician: Dora Glass Consult reason: A-Fib RVR History of present illness: Ms. Slade is a 72 year old female with PMH significant for rheumatic heart disease s/p mechanical mitral and aortic valve replacements in the , on coumadin, A-Fib. She also has CAD s/p 1v CABG, SVG to D1 in 1995. She had a recent echo 12/15/17 LVEF 55%. 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 No prosthetic aortic stenosis/ obstruction by Doppler parameters. Mechanical mitral valve is not well visualized. Moderate-severe tricuspid regurgitation. She was sent to [facility] for further evaluation, underwent JIMMY, agreed with pannus formation, but no intervention was warranted. Pt presented to outpt visit with Dr. Johnson yesterday , found to be in A-Fib RVR HR 120s. Cardiology consulted for further recommendations. Pt reports intermittent palpitations, but only when lying flat. Denies chest pain, dyspnea or LE edema. 12 hr tele AVG HR 108. Past Med Surg Social Fam HX - Past Medical History Medical history: atrial fibrillation, coronary artery disease, CVA, hyperlipidemia, hypertension, valvular heart disease, other Psychiatric history: depression - Past Surgical History Surgical History: coronary bypass (CABG), heart valve replacement - Social History Smoking Status: Light tobacco smoker Smokeless Tobacco Status: No Alcohol use: none Drug use: none - Family History Father Adopted: No Family Member Ethnicity: Non- Living Status: Hx Family Cardiac Disorders: Yes Hx Family Respiratory Disorders: Yes (Emphysema) Hx Family Cancer: No Hx Family GI Disorders: No Hx Family Endocrine Disorder: No Hx Family Neuromuscular Disorders: No Hx Family Neurologic Disorders: No Hx Family HEENT Disorders: No Hx Family Autoimmune Disorders: No Mother Living Status: Hx Family Neurologic Disorders: Yes (dementia) Medications and Allergies Aspirin [Lo-Dose Aspirin EC] 81 mg PO DAILY 07/20/15 [History] Montelukast [Singulair] 10 mg PO HS 11/09/15 [History] Pravastatin Sodium [Pravachol] 20 mg PO HS 07/20/15 [History] clonazePAM [Klonopin] 0.5 mg PO HS PRN 08/24/16 [History] methIMAzole [Tapazole] 2.5 mg PO Q48H 08/24/16 [History] Digoxin [Lanoxin] 0.125 mg PO DAILY 30 Days tablet 08/28/16 [Rx] Albuterol Sulfate [Albuterol Inhaler] 2 puff IH Q4HR PRN 11/18/16 [History] Escitalopram [Lexapro] 20 mg PO DAILY 11/18/16 [History] Vit A/Vit C/Vit E/Zinc/Copper [Preservision Areds Tablet] 1 each PO DAILY [History] Warfarin [Coumadin] 10 mg PO SUMOTUTHFR 11/18/16 [History] Ascorbic Acid [Vitamin C] 500 mg PO DAILY 05/09/17 [History] Diltiazem HCl [Diltiazem 24Hr Cd] 360 mg PO DAILY 05/09/17 [History] BuPROPion XL (24 HR) [Wellbutrin Xl] 150 mg PO DAILY 12/14/17 [History] Furosemide [Lasix] 40 mg PO DAILY 12/14/17 [History] Mirabegron [Myrbetriq] 50 mg PO DAILY 12/14/17 [History] Warfarin [Coumadin] 5 mg PO WESA 12/14/17 [History] Bromfenac Sodium [Prolensa] 1 drop OP BID 12/26/17 [History] Difluprednate [Durezol] 1 drop OP BID 12/26/17 [History] Potassium Chloride [Klor-Con 10] 10 meq PO DAILY 12/26/17 [History] Metoprolol [Lopressor] 25 mg PO BID #60 tablet 12/27/17 [Rx] 3 Allergy/AdvReac Type Severity Reaction Status Date / Time Iodinated Contrast- Oral and Allergy Rash Verified 12/26/17 14:26 IV Dye Penicillins [PCN] Allergy Hives Verified 12/26/17 14:26 phenobarbital Allergy Seizure Verified 12/26/17 14:26 Sulfa (Sulfonamide Allergy Hives Verified 12/26/17 14:26 Antibiotics) Beta-Blockers AdvReac Difficulty Verified 12/26/17 14:26 (Beta-Adrenergic Bloc Breathing budesonide [From Symbicort] AdvReac Weakness Verified 12/26/17 14:26 Formoterol [From Symbicort] AdvReac Weakness Verified 12/26/17 14:26 nitrofurantoin AdvReac Dry Mucus Verified 12/26/17 14:26 Membranes barbituates Allergy Hives Uncoded 12/26/17 14:26 All Systems Review: The remainder of the systems were reviewed and are negative - Cardiovascular Cardiovascular: as per HPI, palpitations Physical Examination Vital Signs, Last 4 Hours Temp Pulse Resp BP Pulse Ox 12/27/17 11:06 97.6 F 93 16 107/65 98 Vital Signs Temp Pulse Resp BP Pulse Ox 12/27/17 11:06 97.6 F 93 16 107/65 98 12/27/17 08:02 93 12/27/17 06:59 98.1 F 102 18 129/84 93 12/27/17 04:06 97.9 F 100 18 125/71 89 12/26/17 22:32 92 12/26/17 22:18 97.6 F 105 18 119/80 92 12/26/17 21:48 18 114/76 12/26/17 18:45 94 20 134/82 93 12/26/17 14:26 98.2 F 112 20 117/80 97 Intake and Output 12/26/17 12/27/17 12/27/17 23:59 07:59 15:59 Intake Total 0 / 0 500 / 500 Output Total 200 / 200 Balance 0 / 0 300 / 300 Intake: Oral 0 / 0 500 / 500 Output: Urine 200 / 200 Other: # Voids 1 1 # Bowel Movements 1 Weight 54.794 kg 54.7 kg Patient Weight 12/27/17 23:59 Weight 54.7 kg General: Conversant, No Apparent Distress HEENT: Atraumatic, Normocephaly, Mucus Membranes Moist Neck: No JVD, Normal carotid pulses Cardiac: Other (irregularly irregular rhythm, audible click) Lungs: Normal Breath Sounds, No Wheeze, Rales, Rhonchi Neuro: Alert and responsive, No focal deficits noted Abdomen: Soft, Non-Tender Skin: No rashes noted on visualized skin Musculoskeletal: No Chest Wall Tenderness Extremities: No Clubbing, No Cyanosis, No Edema, Normal Pulses Results 12/27/17 06:43 12/27/17 06:43 Lab Results 12/26/17 12/26/17 12/27/17 22:04 22:04 06:43 WBC 8.2 Hgb 14.0 D Hct 44.3 Plt Count 230 INR Sodium Potassium Chloride Carbon Dioxide BUN Creatinine Glucose Calcium Troponin I 0.05 H* TSH 3.637 12/27/17 12/27/17 06:43 06:43 WBC Hgb Hct Plt Count INR 3.6 Sodium 143 Potassium 4.1 Chloride 104 Carbon Dioxide 32 H BUN 19 Creatinine 0.73 Glucose 97 Calcium 9.2 Troponin I 0.05 H* TSH Chest X-Ray 12/26/17 14:33 IMPRESSION: 1. Cardiomegaly with no evidence of CHF 2. Probable COPD with no acute infiltrate D/ / Tyson Chamberlain MD / Tyson Chamberlain MD Interpreting Provider: Tyson Chamberlain MD Active Medications Albuterol Sulfate (Albuterol Inhaler) 2 puff IH [id number] PRN PRN Reason: Shortness Of Breath Stop: 06/27/18 21:51 Ascorbic Acid (Vitamin C) 500 mg PO DAILY [facility] Stop: 06/28/18 09:01 Last Admin: 12/27/17 07:56 Dose: 500 mg Aspirin (Aspirin Ec) 81 mg PO DAILY [facility] Stop: 06/28/18 09:01 Last Admin: 12/27/17 07:57 Dose: 81 mg Bupropion HCl (Wellbutrin Xl) 150 mg PO DAILY [facility] Stop: 06/28/18 09:01 Last Admin: 12/27/17 07:57 Dose: 150 mg Clonazepam (Klonopin) 0.5 mg PO HS PRN PRN Reason: Anxiety Stop: 06/27/18 21:51 Digoxin (Lanoxin) 0.125 mg PO DAILY [facility] Stop: 06/28/18 09:01 Last Admin: 12/27/17 07:56 Dose: 0.125 mg Diltiazem HCl (Cardizem Cd) 360 mg PO DAILY [facility] Stop: 06/28/18 09:01 Last Admin: 12/27/17 07:56 Dose: 360 mg Escitalopram Oxalate (Lexapro) 20 mg PO DAILY [facility] Stop: 06/28/18 09:01 Last Admin: 12/27/17 07:56 Dose: 20 mg Methimazole (Tapazole) 2.5 mg PO Q48H [facility] Stop: 06/27/18 22:01 Last Admin: 12/26/17 23:13 Dose: 2.5 mg Metoprolol Tartrate (Lopressor) 25 mg PO BID [facility] Stop: 06/28/18 09:01 Last Admin: 12/27/17 07:56 Dose: 25 mg Montelukast Sodium (Singulair) 10 mg PO HS [facility] Stop: 06/28/18 21:01 Naloxone HCl (Narcan) 0.4 mg IVP Q2MIN PRN PRN Reason: SEE COMMENTS Stop: 06/27/18 21:46 Pharmacy Profile Note (Patient Taking Own Medication) 1 each PO DAILY [facility] Stop: 06/28/18 09:01 Last Admin: 12/27/17 12:40 Dose: Not Given Simvastatin (Zocor) 10 mg PO HS [facility] Stop: 06/28/18 21:01 Warfarin Sodium (Coumadin) 5 mg PO WESA [facility] Stop: 06/28/18 21:51 Warfarin Sodium (Coumadin) 10 mg PO SUMOTUTHFR [facility] Stop: 06/27/18 18:01 Last Admin: 12/26/17 23:13 Dose: 10 mg Warfarin Sodium (Coumadin Perpt) 1 each PO DAILY@1800 PRN PRN Reason: SEE COMMENTS Stop: 06/28/18 18:01 - Imaging and Cardiology Echo: report reviewed - EKG Interpretation EKG results cardiology: personally reviewed (A-Fib RVR rate 113), other (12 hr tele AVG HR 108, A-Fib) Consult Discharge Plan - Plan Referrals: Desmond Howe MD [Primary Care Provider] - Prescriptions: Metoprolol [Lopressor] 25 mg PO BID #60 tablet <Sandra Johnson - Last Filed: 12/27/17 17:12> Date of Encounter: 12/27/17 - Attending Attestation I examined this patient and my medical decision-making was reviewed with the GARMENT LOOPER. I agree with the documented findings, disposition and treatment plan. Ms. Slade is well known to me from the outpatient setting. She was seen in the office yesterday where she described significant fatigue. Noted to be in AF RVR with HR 124 by ECG. I recommended ER evaluation and possible admission. I spoke with 2 ER physicians over the course of yesterday evening who had difficulty getting HR controlled and therefore recommended admission. Today, she reports feeling better. HR is better controlled. Metoprolol PO was uptitrated, losartan was decreased to accommodate for blood pressure. We will observe her overnight on this change and anticipate discharge tomorrow. She is anticoagulated on coumadin with history of mechanical aortic and mitral valves. Troponins in this setting are flat and adynamic representing demand ischemia. Assessment and Plan Discussion w patient/family: The assessment and plan as outlined above was discussed with the patient and/or family members who expressed understanding and agreement. All questions were answered. Thank you for involving us in the care of your patient. Please call with any questions. History of Present Illness History of present illness: Ms. Slade is a 72 year old female All Systems Review: The remainder of the systems were reviewed and are negative Results 12/27/17 06:43 12/27/17 06:43 Lab Results 12/26/17 12/26/17 12/27/17 22:04 22:04 06:43 WBC 8.2 Hgb 14.0 D Hct 44.3 Plt Count 230 INR Sodium Potassium Chloride Carbon Dioxide BUN Creatinine Glucose Calcium Troponin I 0.05 H* TSH 3.637 12/27/17 12/27/17 12/27/17 06:43 06:43 12:49 WBC Hgb Hct Plt Count INR 3.6 Sodium 143 Potassium 4.1 Chloride 104 Carbon Dioxide 32 H BUN 19 Creatinine 0.73 Glucose 97 Calcium 9.2 Troponin I 0.05 H* 0.05 H* TSH
[2017-12-27] MEDS: Mirabegron [Myrbetriq] 50 MG PO SCH (12:40)
[2017-12-27] MEDS ORDERED: Menthol 9.1 MG LOZENGE PO PRN (17:02)
[2017-12-27] MEDS ORDERED: Warfarin perPT PO PRN (18:00)
[2017-12-27] MEDS ORDERED: *HR* Warfarin 5 MG TABLET PO SCH (19:50)
[2017-12-28 03:46] LABS: INR 3.5; Prothrombin Time 38.9 Seconds (9.4-12.1)
[2017-12-28 07:19] VITALS: BP 147/82
--- NOTE | 2017-12-28 09:52 | Cardiology Progress Note ---
Date of Encounter: 12/28/17 Time of Encounter: 09:49 Assessment and Plan (1) Atrial fibrillation Current Visit: Yes Status: Acute Known chronic A-Fib. Presented as outpt RVR HR 120s, sent to ED. 12 hr tele AVG HR 62, A-Fib. Home meds included Lopressor 12.5mg BID, Cardizem 360mg daily and Digoxin 125mcg daily. BB increased on admission to Lopressor 25mg BID. Continue current doses of Cardizem and Digoxin. Decreased Cozaar to 25mg daily to allow BP room. Anticoagulated on Coumadin. Cardiology signing off. Reconsult PRN. Will coordinate outpt follow-up in 2-3 weeks. Qualifiers: Atrial fibrillation type: chronic Qualified Code(s): I48.2 - Chronic atrial fibrillation (2) Elevated troponin Current Visit: Yes Status: Acute Troponin 0.06, 0.05, 0.05 in setting of A-Fib RVR. Suspect demand ischemia, nondiagnostic for ACS. Pt denies chest pain. No ischemic EKG changes. EF preserved on recent echo. (3) Mechanical heart valve present Current Visit: No Status: Acute Mechanical mitral and aortic valve replacements in the , on coumadin. INR 3.5. Recent echo 12/15/17 LVEF 55%. 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 No prosthetic aortic stenosis/ obstruction by Doppler parameters. Mechanical mitral valve is not well visualized. Moderate-severe tricuspid regurgitation. She was sent to [facility] for further evaluation, underwent JIMMY, agreed with pannus formation, but no intervention was warranted. No repeat testing warranted at this time. Discussion w patient/family: The assessment and plan as outlined above was discussed with the patient and/or family members who expressed understanding and agreement. All questions were answered. Thank you for involving us in the care of your patient. Please call with any questions. I will discuss all the above with Dr. Paz and make changes as necessary. Subjective Principal diagnosis: A-FIb RVR Interval history: No acute complaints this AM. AVG HR 62 overnight. Objective Vital Signs, Last 4 Hours Temp Pulse Resp BP Pulse Ox 12/28/17 07:18 97.9 F 80 18 147/82 90 Vital Signs Temp Pulse Resp BP Pulse Ox 12/28/17 07:18 97.9 F 80 18 147/82 90 12/28/17 03:30 97.6 F 65 20 130/68 92 12/27/17 23:09 97.5 F L 57 16 104/58 92 12/27/17 20:25 60 12/27/17 19:12 97.9 F 65 14 109/67 92 12/27/17 11:06 97.6 F 93 16 107/65 98 Intake and Output 12/27/17 12/28/17 12/28/17 23:59 07:59 15:59 Intake Total 240 / 240 480 / 480 Output Total 0 / 0 Balance 240 / 240 480 / 480 Intake: Oral 240 / 240 480 / 480 Output: Urine 0 / 0 Other: Meal Breakfast Percent of Meal Consumed 100% # Voids 1 Weight 55.1 kg Patient Weight 12/28/17 23:59 Weight 55.1 kg General: Conversant, No Apparent Distress HEENT: Atraumatic, Normocephaly, Mucus Membranes Moist Neck: No JVD, Normal carotid pulses Cardiac: Other (irregularly irregular rhythm, audible click) Lungs: Normal Breath Sounds, No Wheeze, Rales, Rhonchi Neuro: Alert and responsive, No focal deficits noted Abdomen: Soft, Non-Tender Skin: No rashes noted on visualized skin Musculoskeletal: No Chest Wall Tenderness Extremities: No Clubbing, No Cyanosis, No Edema, Normal Pulses Results 12/27/17 06:43 12/27/17 06:43 Lab Results 12/27/17 12/28/17 12:49 02:54 INR 3.5 Troponin I 0.05 H* Cardiac Enzymes 12/27/17 Range/Units 12:49 Troponin I 0.05 H* (< 0.04) ng/mL Active Medications Albuterol Sulfate (Albuterol Inhaler) 2 puff IH [id number] PRN PRN Reason: Shortness Of Breath Stop: 06/27/18 21:51 Ascorbic Acid (Vitamin C) 500 mg PO DAILY [facility] Stop: 06/28/18 09:01 Last Admin: 12/27/17 07:56 Dose: 500 mg Aspirin (Aspirin Ec) 81 mg PO DAILY [facility] Stop: 06/28/18 09:01 Last Admin: 12/27/17 07:57 Dose: 81 mg Bupropion HCl (Wellbutrin Xl) 150 mg PO DAILY [facility] Stop: 06/28/18 09:01 Last Admin: 12/27/17 07:57 Dose: 150 mg Clonazepam (Klonopin) 0.5 mg PO HS PRN PRN Reason: Anxiety Stop: 06/27/18 21:51 Last Admin: 12/27/17 22:38 Dose: 0.5 mg Digoxin (Lanoxin) 0.125 mg PO DAILY [facility] Stop: 06/28/18 09:01 Last Admin: 12/27/17 07:56 Dose: 0.125 mg Diltiazem HCl (Cardizem Cd) 360 mg PO DAILY [facility] Stop: 06/28/18 09:01 Last Admin: 12/27/17 07:56 Dose: 360 mg Escitalopram Oxalate (Lexapro) 20 mg PO DAILY [facility] Stop: 06/28/18 09:01 Last Admin: 12/27/17 07:56 Dose: 20 mg Losartan Potassium (Cozaar) 25 mg PO DAILY [facility] PRN Reason: Protocol Stop: 06/29/18 09:01 Menthol (Cough Drops) 9.1 mg PO Q2H PRN PRN Reason: Cough Stop: 06/28/18 17:03 Last Admin: 12/27/17 20:30 Dose: 9.1 mg Methimazole (Tapazole) 2.5 mg PO Q48H [facility] Stop: 06/27/18 22:01 Last Admin: 12/26/17 23:13 Dose: 2.5 mg Metoprolol Tartrate (Lopressor) 25 mg PO BID [facility] Stop: 06/28/18 09:01 Last Admin: 12/27/17 20:25 Dose: Not Given Montelukast Sodium (Singulair) 10 mg PO HS [facility] Stop: 06/28/18 21:01 Last Admin: 12/27/17 20:25 Dose: 10 mg Naloxone HCl (Narcan) 0.4 mg IVP Q2MIN PRN PRN Reason: SEE COMMENTS Stop: 06/27/18 21:46 Pharmacy Profile Note (Patient Taking Own Medication) 1 each PO DAILY [facility] Stop: 06/28/18 09:01 Last Admin: 12/27/17 12:40 Dose: Not Given Simvastatin (Zocor) 10 mg PO HS [facility] Stop: 06/28/18 21:01 Last Admin: 12/27/17 20:26 Dose: 10 mg Warfarin Sodium (Coumadin) 5 mg PO WeSa@1800 [facility] Stop: 06/28/18 19:51 Last Admin: 12/27/17 20:25 Dose: 5 mg Warfarin Sodium (Coumadin Perpt) 1 each PO DAILY@1800 PRN PRN Reason: SEE COMMENTS Stop: 06/28/18 18:01 Warfarin Sodium (Coumadin) 10 mg PO SuMoTuThFr@1800 [facility] Stop: 06/27/18 18:01 - EKG Interpretation EKG results cardiology: other (12 hr tele AVG HR 62, A-Fib) - VTE Reasons for not Prescribing Prophylaxis: Not indicated-Anticoagulated or INR therapeutic Consult Discharge Plan - Plan Referrals: Desmond Howe MD [Primary Care Provider] - 01/12/18 1:00 pm (Please follow up as schedule...) Prescriptions: Losartan [Cozaar] 25 mg PO DAILY #30 tablet Metoprolol [Lopressor] 25 mg PO BID #60 tablet
[2017-12-28] MEDS: Diltiazem CD (24hr) 180 MG CAPSULE PO SCH (10:05)
[2017-12-28] MEDS: Mirabegron [Myrbetriq] 50 MG PO SCH (10:06)
[2017-12-28] MEDS: BuPROPion XL (24 HR) 150 MG TABLET PO SCH (10:06)
[2017-12-28] MEDS: Ascorbic Acid 500 MG TABLET PO SCH (10:06)
[2017-12-28] MEDS: Aspirin Enteric Coated 81 MG Tablet PO SCH (10:06)
[2017-12-28] MEDS: *HR* Digoxin 0.125 MG TABLET PO SCH (10:06)
[2017-12-28] MEDS ORDERED: *HR* Warfarin 10 MG TABLET PO SCH (18:00)
--- NOTE | 2017-12-29 08:57 | Electrocardiograph Report ---
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
== END 2017-12-28 11:12 | disposition home or self-care (01) ==
LOC: 2ANU 14:20 → EMEROO 14:20 → 2ANU 21:56
PROVIDERS: ADMIT General Practice; ATTEND Internal Medicine

== ENCOUNTER 2018-08-11 16:05 | Inpatient (IN) ==
--- NOTE | 2018-08-11 16:15 | Emergency Department Note ---
Disposition Clinical Impression: Atrial fibrillation with RVR, Hypoxia Disposition: Admitted As Inpatient Condition: Undetermined General Adult HPI - General Chief complaint: ED Shortness of Breath/Dyspnea Stated complaint: ALEKS Time Seen by Provider: 08/11/18 16:12 - History of Present Illness Pain Scale: 0 - Related Data Home Medications Medication Instructions Recorded Confirmed RX: Aspirin [Lo-Dose Aspirin EC] 81 mg PO DAILY 07/20/15 05/31/18 RX: Montelukast [Singulair] 10 mg PO HS 07/20/15 05/31/18 RX: Pravastatin Sodium [Pravachol] 20 mg PO HS 07/20/15 05/31/18 RX: clonazePAM [Klonopin] 0.5 mg PO HS PRN 08/24/16 05/31/18 RX: methIMAzole [Tapazole] 2.5 mg PO Q48H 08/24/16 05/31/18 RX: Albuterol Sulfate [Albuterol 2 puff IH Q4HR PRN 11/18/16 05/31/18 Inhaler] RX: Warfarin [Coumadin] 10 mg PO SUMOTUTHFR 11/18/16 05/31/18 RX: Ascorbic Acid [Vitamin C] 500 mg PO DAILY 05/09/17 05/31/18 RX: dilTIAZem HCl [Diltiazem 24Hr 360 mg PO DAILY 05/09/17 05/31/18 Cd] RX: Warfarin [Coumadin] 5 mg PO WESA 12/14/17 05/31/18 RX: BuPROPion XL (24 HR) 150 mg PO DAILY 05/18/18 05/31/18 [Wellbutrin Xl] RX: Chlorthalidone 50 mg PO DAILY 05/18/18 05/31/18 RX: Potassium Chloride [Klor-Con] 25 meq PO DAILY 05/25/18 05/31/18 RX: Metoprolol [Lopressor] 12.5 mg PO BID 05/31/18 05/31/18 RX: Vit A/Vit C/Vit E/Zinc/Copper 1 each PO DAILY 05/31/18 05/31/18 [Preservision Areds Tablet] Previous Rx's Medication Instructions Recorded RX: Losartan [Cozaar] 25 mg PO DAILY #90 tablet 12/28/17 Acetaminophen [Tylenol] 1,000 mg PO Q6HR PRN #90 tablet 05/31/18 Allergies Allergy/AdvReac Type Severity Reaction Status Date / Time furosemide Allergy Hives Verified 05/31/18 07:32 Iodinated Contrast- Oral and Allergy Rash Verified 05/31/18 07:32 IV Dye Penicillins [PCN] Allergy anaphylacti Verified 05/31/18 07:32 c Sulfa (Sulfonamide Allergy Hives Verified 05/31/18 07:32 Antibiotics) Barbiturates AdvReac Seizure Verified 05/31/18 07:33 budesonide [From Symbicort] AdvReac Weakness Verified 05/31/18 07:32 Formoterol [From Symbicort] AdvReac Weakness Verified 05/31/18 07:32 Past Medical History - Past Medical History Medical history: Reports: arthritis, asthma, atrial fibrillation, CHF, COPD, coronary artery disease, CVA, fibromyalgia, glaucoma, hyperlipidemia, hypertension, myocardial infarction, thyroid disease, valvular heart disease, other Surgical history: Reports: coronary bypass (CABG), heart valve replacement, orthopedic, other, other Psychiatric history: Reports: depression HEAD CHARGER history: Reports: no HEAD CHARGER history - Social History Smoking Status: Current every day smoker Smokeless Tobacco Status: No Alcohol use: Reports: none Drug use: Reports: none Course Vital Signs Temperature 98.5 F 08/11/18 16:06 Pulse Rate 165 08/11/18 16:06 Respiratory Rate 24 08/11/18 16:06 Blood Pressure 112/71 08/11/18 16:06 O2 Sat by Pulse Oximetry 87 08/11/18 16:06 Temperature 98.5 F 08/11/18 16:38 Pulse Rate 118 08/11/18 18:31 Respiratory Rate 26 08/11/18 18:31 Blood Pressure 120/84 08/11/18 18:31 O2 Sat by Pulse Oximetry 92 08/11/18 18:31 Oxygen Delivery Oxygen Delivery Nasal Cannula Medical Decision Making - Lab Data Result diagrams: 08/11/18 17:05 08/11/18 17:05 Lab Results 08/11/18 08/11/18 08/11/18 Range/Units 17:05 17:05 17:05 WBC 7.5 (4.3-11.1) K/mcL RBC 4.60 (3.82-4.97) M/mcL Hgb 14.9 (11.5-15.4) g/dL Hct 46.4 H (35.3-44.9) % MCV 100.9 H (83.0-100.0) fL MCH 32.4 (28.0-33.3) pg MCHC 32.1 (31.6-35.5) g/dL RDW 13.2 (11.5-14.5) % Plt Count 264 (140-400) K/mcL MPV 11.6 (9.4-12.4) fL Immature Gran % 0.4 (0-4) % Seg Neutrophils % 67.8 % Lymphocytes % 14.7 % Monocytes % 12.5 % Eosinophils % 3.1 % Basophils % 1.5 % Neutrophils # 5.1 (1.6-8.9) K/mcL Lymphocytes # 1.1 (0.6-4.6) K/mcL Monocytes # 0.9 (0.0-1.3) K/mcL Eosinophils # 0.2 (0.0-0.6) K/mcL Basophils # 0.1 (0.0-0.2) K/mcL PT 32.0 H (9.4-12.1) Seconds INR 2.8 Sodium 141 (136-145) mEq/L Potassium 3.7 (3.5-5.1) mEq/L Chloride 100 (98-107) mEq/L Carbon Dioxide 35 H (23-29) mEq/L BUN 30 H (8-23) mg/dL Creatinine 0.92 (0.60-1.20) mg/dL Est GFR ( Amer) > 60 (> 60) Est GFR (Non-Af Amer) 60 (> 60) BUN/Creatinine Ratio 33 H (6-26) Glucose 209 H (70-105) mg/dL Calculated Osmolality 304 H (280-300) Calcium 10.3 (8.6-10.3) mg/dL Magnesium 2.0 (1.6-2.6) mg/dL Troponin I 0.03 (< 0.04) ng/mL B-Natriuretic Peptide (Less than 100) pg/mL TSH 3.619 (0.340-5.600) mcIU/mL 08/11/18 Range/Units 17:05 WBC (4.3-11.1) K/mcL RBC (3.82-4.97) M/mcL Hgb (11.5-15.4) g/dL Hct (35.3-44.9) % MCV (83.0-100.0) fL MCH (28.0-33.3) pg MCHC (31.6-35.5) g/dL RDW (11.5-14.5) % Plt Count (140-400) K/mcL MPV (9.4-12.4) fL Immature Gran % (0-4) % Seg Neutrophils % % Lymphocytes % % Monocytes % % Eosinophils % % Basophils % % Neutrophils # (1.6-8.9) K/mcL Lymphocytes # (0.6-4.6) K/mcL Monocytes # (0.0-1.3) K/mcL Eosinophils # (0.0-0.6) K/mcL Basophils # (0.0-0.2) K/mcL PT (9.4-12.1) Seconds INR Sodium (136-145) mEq/L Potassium (3.5-5.1) mEq/L Chloride (98-107) mEq/L Carbon Dioxide (23-29) mEq/L BUN (8-23) mg/dL Creatinine (0.60-1.20) mg/dL Est GFR ( Amer) (> 60) Est GFR (Non-Af Amer) (> 60) BUN/Creatinine Ratio (6-26) Glucose (70-105) mg/dL Calculated Osmolality (280-300) Calcium (8.6-10.3) mg/dL Magnesium (1.6-2.6) mg/dL Troponin I (< 0.04) ng/mL B-Natriuretic Peptide 383 H (Less than 100) pg/mL TSH (0.340-5.600) mcIU/mL Critical Care Time Critical Care Time: Yes Total Critical Care Time: 30 Attestation: The high probability of a clinically significant, sudden or life threatening deterioration of the [] system(s) required my full and direct attention, intervention and personal management. The aggregate critical care time was [] minutes. This time is in addition to time spent performing reported procedures but includes the following: [] Data Review and interpretation [] Patient assessment and monitoring of vital signs [] Documentation [] Medication orders and management Attestation Statement - Attestation Attestation: I examined this patient and my medical decision-making was reviewed with the Resident Physician. I agree with the documented findings, disposition and treatment plan as described except to the extent set forth below. [id number] time provided Patient walked from triage to the treatment room. She was very dyspneic a ppearing upon arrival. Accessory muscle use noted. Triage vitals indicated tachycardia and hypoxia.
--- NOTE | 2018-08-11 16:39 | Emergency Department Note ---
Disposition Clinical Impression: Atrial fibrillation with RVR, Hypoxia Disposition: Admitted As Inpatient Condition: Undetermined Time of Disposition: 18:15 Arrhythmia/Palpitations HPI - General Chief Complaint: ED Arrhythmia/Palpitations Stated Complaint: ALEKS Time Seen by Provider: 08/11/18 16:12 - History of Present Illness HPI Narrative: 73-year-old female patient presenting to the emergency department with her due to tachycardia, palpitations, and shortness of breath. He has a history of A. fib with mitral and aortic valve replacements. She also has A. fib and is on Coumadin, metoprolol, and Cardizem. Patient states that she has had chronic weakness and dizziness for the past 2 years. Reportedly she read online that her symptoms of dizziness and weakness may be secondary to cardiac medications that she takes so she did not take her morning doses today. She is presenting to the emergency department with a heart rate of 160, palpitations, and exertional dyspnea. She is requesting that we change her cardiac medications to a medication that does not carry the side effects of her current medication. - Related Data Home Medications Medication Instructions Recorded Confirmed Aspirin [Lo-Dose Aspirin EC] 81 mg PO DAILY 07/20/15 05/31/18 Montelukast [Singulair] 10 mg PO HS 07/20/15 05/31/18 Pravastatin Sodium [Pravachol] 20 mg PO HS 07/20/15 05/31/18 clonazePAM [Klonopin] 0.5 mg PO HS PRN 08/24/16 05/31/18 methIMAzole [Tapazole] 2.5 mg PO Q48H 08/24/16 05/31/18 Albuterol Sulfate [Albuterol 2 puff IH Q4HR PRN 11/18/16 05/31/18 Inhaler] Warfarin [Coumadin] 10 mg PO SUMOTUTHFR 11/18/16 05/31/18 Ascorbic Acid [Vitamin C] 500 mg PO DAILY 05/09/17 05/31/18 dilTIAZem HCl [Diltiazem 24Hr Cd] 360 mg PO DAILY 05/09/17 05/31/18 Warfarin [Coumadin] 5 mg PO WESA 12/14/17 05/31/18 BuPROPion XL (24 HR) [Wellbutrin 150 mg PO DAILY 05/18/18 05/31/18 Xl] Chlorthalidone 50 mg PO DAILY 05/18/18 05/31/18 Potassium Chloride [Klor-Con] 25 meq PO DAILY 05/25/18 05/31/18 Metoprolol [Lopressor] 12.5 mg PO BID 05/31/18 05/31/18 Vit A/Vit C/Vit E/Zinc/Copper 1 each PO DAILY 05/31/18 05/31/18 [Preservision Areds Tablet] Previous Rx's Medication Instructions Recorded Losartan [Cozaar] 25 mg PO DAILY #90 tablet 12/28/17 Acetaminophen [Tylenol] 1,000 mg PO Q6HR PRN #90 tablet 05/31/18 Allergies Allergy/AdvReac Type Severity Reaction Status Date / Time furosemide Allergy Hives Verified 05/31/18 07:32 Iodinated Contrast- Oral and Allergy Rash Verified 05/31/18 07:32 IV Dye Penicillins [PCN] Allergy anaphylacti Verified 05/31/18 07:32 c Sulfa (Sulfonamide Allergy Hives Verified 05/31/18 07:32 Antibiotics) Barbiturates AdvReac Seizure Verified 05/31/18 07:33 budesonide [From Symbicort] AdvReac Weakness Verified 05/31/18 07:32 Formoterol [From Symbicort] AdvReac Weakness Verified 05/31/18 07:32 All systems ED: reviewed and negative except as stated. Past Medical History - Past Medical History Medical history: Reports: arthritis, asthma, atrial fibrillation, CHF, COPD, coronary artery disease, CVA, fibromyalgia, glaucoma, hyperlipidemia, hypertension, myocardial infarction, thyroid disease, valvular heart disease, other Surgical history: Reports: coronary bypass (CABG), heart valve replacement, orthopedic, other, other Psychiatric history: Reports: depression DIRECTOR LIFE history: Reports: no DIRECTOR LIFE history - Social History Smoking Status: Current every day smoker Smokeless Tobacco Status: No Alcohol use: Reports: none Drug use: Reports: none Physical Exam - General Limitations: no limitations - Head Head exam: atraumatic, normocephalic - Eye Eye exam: Present: normal appearance - Neck Neck exam: Present: other (JVP present nevus) - Chest Chest inspection: Present: normal inspection, symmetric chest wall rise, other (tachypnea, no intercostal retractions) - Respiratory Respiratory exam: Present: normal lung sounds bilaterally (No acute respiratory distress.), other (tachypnea). Absent: wheezes - Cardiovascular Cardiovascular exam: Present: other (Heart rate is profoundly elevated with an irregular rhythm. Murmur auscultated. There is bounding JVP present.) - Abdominal Exam Abdominal exam: Present: soft, Non-Tender - Extremities Exam Extremities exam: Present: normal inspection, other (Pulses palpable in all four extremities) - Neurological Exam Neurological exam: Present: alert, oriented X3 - Psychiatric Psychiatric exam: Present: anxious - Skin Skin exam: Present: warm, dry, intact Course Course Narrative: 16:44 Patient states that she does not want to be admitted, she would only like her medications to be adjusted for discharge home. Had a discussion at length with family and expressed concern at her elevated heart rate and shortness of breath. Discussed that her weakness and dizziness is likely not secondary to her medications. Informed her that it is important we resume her home medications and perform a cardiac workup. Patient agreed. Patient took her morning dose of metoprolol and cardizem. will obtain cardiac workup and reevaluate her heart rate and vitals continuously. Patient's oxygen saturation was low in triage at 87, will continue to monitor and provide oxygen via nasal cannula. 17:42 Reevaluated the patient, heart rate decreased to 115. Patient is on 2 L nasal cannula and her oxygen saturation increased to 94%. She is resting comfortably in the room. Patient continues to state that she does not want to be hospitalized, but her 's urging her to change her mind. 18:01 Labs show an elevated BNP of 383. There is also an elevated carbon dioxide secondary to untreated COPD. Due to these abnormal labs plus vital signs of tachycardia, tachypnea, and hypoxia. Recommend that the patient be admitted to the hospital for further management. 18:13 Spoke to patient regarding recommendation to be admitted to the hospital. Patient agree to the admission elevated beneficial she was monitored overnight. Call hospitalist, hospice accepted the admission. Patient is stable condition to be admitted to the hospital. Her vitals have improved, her heart rate is ranging between 110 to 130 bpm And she is saturating at 90-94% on 2-3 L oxygen. Vital Signs Temperature 98.5 F 08/11/18 16:06 Pulse Rate 165 08/11/18 16:06 Respiratory Rate 24 08/11/18 16:06 Blood Pressure 112/71 08/11/18 16:06 O2 Sat by Pulse Oximetry 87 08/11/18 16:06 Temperature 98.5 F 08/11/18 16:38 Pulse Rate 150 08/11/18 16:55 Respiratory Rate 25 08/11/18 16:55 Blood Pressure 120/65 08/11/18 16:55 O2 Sat by Pulse Oximetry 94 08/11/18 16:55 Oxygen Delivery Oxygen Delivery Nasal Cannula Arrhythmia/Palpitations - [facility] Narrative Medical decision making narrative: 73-year-old female presenting to the emergency department with complaints of shortness of breath, weakness, and palpitations. Patient has a history of A. fib on Coumadin, metoprolol, and Cardizem. Patient has had her mitral valve and aortic valve replaced. She also states that she has been diagnosed with tricuspid regurgitation. Patient states that she has had this one year long history of increasing weakness and dizziness. She recently researched online that her Cardizem and metoprolol may be contributing to her symptoms so she discontinued her medication this morning. She came to the ED with a heart rate of 165 and O2 saturations of 85%. In the emergency department patient was given her home dose of Cardizem and metoprolol. Her heart rate did improve to 115 bpm. She remained hypoxic on room air saturating at about 87-88%. She was placed on 2-3 L of oxygen and her O2 saturation improved. Troponin was negative and BNP was mildly elevated at 383. Spoke with patient regarding inpatient admission for observation and further management. Patient agreed and is in stable condition for admission to the hospital. - Medical Records Medical records reviewed: Yes I reviewed the patient's medical records. - Lab Data Lab results reviewed: Yes I reviewed the patient's lab results. Result diagrams: 08/11/18 17:05 08/11/18 17:05 Lab Results 08/11/18 08/11/18 08/11/18 Range/Units 17:05 17:05 17:05 WBC 7.5 (4.3-11.1) K/mcL RBC 4.60 (3.82-4.97) M/mcL Hgb 14.9 (11.5-15.4) g/dL Hct 46.4 H (35.3-44.9) % MCV 100.9 H (83.0-100.0) fL MCH 32.4 (28.0-33.3) pg MCHC 32.1 (31.6-35.5) g/dL RDW 13.2 (11.5-14.5) % Plt Count 264 (140-400) K/mcL MPV 11.6 (9.4-12.4) fL Immature Gran % 0.4 (0-4) % Seg Neutrophils % 67.8 % Lymphocytes % 14.7 % Monocytes % 12.5 % Eosinophils % 3.1 % Basophils % 1.5 % Neutrophils # 5.1 (1.6-8.9) K/mcL Lymphocytes # 1.1 (0.6-4.6) K/mcL Monocytes # 0.9 (0.0-1.3) K/mcL Eosinophils # 0.2 (0.0-0.6) K/mcL Basophils # 0.1 (0.0-0.2) K/mcL PT 32.0 H (9.4-12.1) Seconds INR 2.8 Sodium 141 (136-145) mEq/L Potassium 3.7 (3.5-5.1) mEq/L Chloride 100 (98-107) mEq/L Carbon Dioxide 35 H (23-29) mEq/L BUN 30 H (8-23) mg/dL Creatinine 0.92 (0.60-1.20) mg/dL Est GFR ( Amer) > 60 (> 60) Est GFR (Non-Af Amer) 60 (> 60) BUN/Creatinine Ratio 33 H (6-26) Glucose 209 H (70-105) mg/dL Calculated Osmolality 304 H (280-300) Calcium 10.3 (8.6-10.3) mg/dL Magnesium 2.0 (1.6-2.6) mg/dL Troponin I 0.03 (< 0.04) ng/mL B-Natriuretic Peptide (Less than 100) pg/mL TSH 3.619 (0.340-5.600) mcIU/mL 08/11/18 Range/Units 17:05 WBC (4.3-11.1) K/mcL RBC (3.82-4.97) M/mcL Hgb (11.5-15.4) g/dL Hct (35.3-44.9) % MCV (83.0-100.0) fL MCH (28.0-33.3) pg MCHC (31.6-35.5) g/dL RDW (11.5-14.5) % Plt Count (140-400) K/mcL MPV (9.4-12.4) fL Immature Gran % (0-4) % Seg Neutrophils % % Lymphocytes % % Monocytes % % Eosinophils % % Basophils % % Neutrophils # (1.6-8.9) K/mcL Lymphocytes # (0.6-4.6) K/mcL Monocytes # (0.0-1.3) K/mcL Eosinophils # (0.0-0.6) K/mcL Basophils # (0.0-0.2) K/mcL PT (9.4-12.1) Seconds INR Sodium (136-145) mEq/L Potassium (3.5-5.1) mEq/L Chloride (98-107) mEq/L Carbon Dioxide (23-29) mEq/L BUN (8-23) mg/dL Creatinine (0.60-1.20) mg/dL Est GFR ( Amer) (> 60) Est GFR (Non-Af Amer) (> 60) BUN/Creatinine Ratio (6-26) Glucose (70-105) mg/dL Calculated Osmolality (280-300) Calcium (8.6-10.3) mg/dL Magnesium (1.6-2.6) mg/dL Troponin I (< 0.04) ng/mL B-Natriuretic Peptide 383 H (Less than 100) pg/mL TSH (0.340-5.600) mcIU/mL - Radiology Data Radiology results reviewed: Yes I reviewed the patient's radiology results. - EKG Data EKG attestation: Yes I reviewed and interpreted this EKG. EKG results narrative: EKG shows A. fib with RVR with a heart rate of 147. Left axis deviation. Late R-wave progression. No acute ST elevations or depressions. A. fib with RVR.
[2018-08-11 17:36] LABS: Basophils # 0.1 K/mcL (0.0-0.2); Basophils % 1.5 %; Eosinophils # 0.2 K/mcL (0.0-0.6); Eosinophils % 3.1 %; Hematocrit 46.4 % (35.3-44.9); Hemoglobin 14.9 g/dL (11.5-15.4); Immature Granulocytes % 0.4 % (0-4); Lymphocytes # 1.1 K/mcL (0.6-4.6); Lymphocytes % 14.7 %; Mean Corpuscular HGB Conc 32.1 g/dL (31.6-35.5); Mean Corpuscular Hemoglobin 32.4 pg (28.0-33.3); Mean Corpuscular Volume 100.9 fL (83.0-100.0); Mean Platelet Volume 11.6 fL (9.4-12.4); Monocytes # 0.9 K/mcL (0.0-1.3); Monocytes % 12.5 %; Neutrophils # 5.1 K/mcL (1.6-8.9); Platelet Count 264 K/mcL (140-400); Red Cell Distribution Width 13.2 % (11.5-14.5); Segmented Neutrophils % 67.8 %
[2018-08-11 17:44] LABS: INR 2.8
[2018-08-11 17:53] LABS: BUN/Creatinine Ratio 33 (6-26); Blood Urea Nitrogen 30 mg/dL (8-23); Calcium 10.3 mg/dL (8.6-10.3); Carbon Dioxide 35 mEq/L (23-29); Chloride 100 mEq/L (98-107); Glucose 209 mg/dL (70-105); Osmolality,Calculated 304 (280-300); Potassium 3.7 mEq/L (3.5-5.1); Sodium 141 mEq/L (136-145); eGFR For Non-African Americans 60 (> 60)
[2018-08-11 17:54] LABS: Troponin I 0.03 ng/mL (< 0.04)
[2018-08-11 18:07] LABS: Thyroid Stimulating Hormone 3.619 mcIU/mL (0.340-5.600)
--- NOTE | 2018-08-11 19:29 | Internal Med History&Physical ---
<Pete Sherman - Last Filed: 08/11/18 22:15> Date of Encounter: 08/11/18 Internal Medicine - H&P: HPI History of present illness: Ms. Slade is a 73 year old female Internal Medicine - H&P: Meds Aspirin [Lo-Dose Aspirin EC] 81 mg PO DAILY 07/20/15 [History] Montelukast [Singulair] 10 mg PO HS 07/20/15 [History] Pravastatin Sodium [Pravachol] 20 mg PO HS 07/20/15 [History] clonazePAM [Klonopin] 0.5 mg PO HS PRN 08/24/16 [History] methIMAzole [Tapazole] 2.5 mg PO Q48H 08/24/16 [History] Albuterol Sulfate [Albuterol Inhaler] 2 puff IH Q4HR PRN 11/18/16 [History] Warfarin [Coumadin] 10 mg PO SUMOTUTHFR 11/18/16 [History] Ascorbic Acid [Vitamin C] 500 mg PO DAILY 05/09/17 [History] dilTIAZem HCl [Diltiazem 24Hr Cd] 360 mg PO DAILY 05/09/17 [History] Warfarin [Coumadin] 5 mg PO WESA 12/14/17 [History] Losartan [Cozaar] 25 mg PO DAILY #90 tablet 12/28/17 [Rx] BuPROPion XL (24 HR) [Wellbutrin Xl] 150 mg PO DAILY 05/18/18 [History] Chlorthalidone 50 mg PO DAILY 05/18/18 [History] Potassium Chloride [Klor-Con] 25 meq PO DAILY 05/25/18 [History] Acetaminophen [Tylenol] 1,000 mg PO Q6HR PRN #90 tablet 05/31/18 [Rx] Metoprolol [Lopressor] 12.5 mg PO BID 05/31/18 [History] Vit A/Vit C/Vit E/Zinc/Copper [Preservision Areds Tablet] 1 each PO DAILY 05/31/18 [History] Allergy/AdvReac Type Severity Reaction Status Date / Time furosemide Allergy Hives Verified 05/31/18 07:32 Iodinated Contrast- Oral and Allergy Rash Verified 05/31/18 07:32 IV Dye Penicillins [PCN] Allergy anaphylacti Verified 05/31/18 07:32 c Sulfa (Sulfonamide Allergy Hives Verified 05/31/18 07:32 Antibiotics) Barbiturates AdvReac Seizure Verified 05/31/18 07:33 budesonide [From Symbicort] AdvReac Weakness Verified 05/31/18 07:32 Formoterol [From Symbicort] AdvReac Weakness Verified 05/31/18 07:32 All Systems PM: A 10-system review of systems was performed and is negative for pertinent findings except as documented above in the HPI. - Constitutional Vitals: Temp Pulse Resp BP Pulse Ox 98.1 F 113 18 119/82 86 08/11/18 20:08 08/11/18 20:08 08/11/18 21:27 08/11/18 20:08 08/11/18 21:27 Internal Med - H&P Results - Labs CBC & Chem 7: 08/11/18 17:05 08/11/18 17:05 Labs: Short CBC 08/11/18 Range/Units 17:05 WBC 7.5 (4.3-11.1) K/mcL Hgb 14.9 (11.5-15.4) g/dL Hct 46.4 H (35.3-44.9) % Plt Count 264 (140-400) K/mcL Neutrophils # 5.1 (1.6-8.9) K/mcL BMP 08/11/18 17:05 Sodium 141 Potassium 3.7 Chloride 100 Carbon Dioxide 35 H BUN 30 H Creatinine 0.92 Glucose 209 H Calcium 10.3 Cardiac Enzymes 08/11/18 Range/Units 17:05 Troponin I 0.03 (< 0.04) ng/mL - Impressions ITS Impressions Chest X-Ray 08/11/18 16:36 IMPRESSION: No focal airspace consolidation or pulmonary vascular congestion. D/ / Scott Mcnally / Scott Mcnally Interpreting Provider: Scott Mcnally - Time Spent With Patient Total time spent is greater than 50% in coordination of care (as documented) at patient's floor/unit and/or counseling patient: - Attending Attestation I saw and evaluated the patient. I reviewed the residents note, performed my own physical examination and agree with findings and plan as documented in the residents note. Patient seen and examined on 08/11/18. Patient presented to the emergency room initially to have her medications adjusted she has been feeling weak for about 2 years. She states that she has seen her liability analyst regarding this but nothing has been done. This morning she decided to stop taking her medications that she takes for her atrial fibrillation and she read that they could cause her symptoms. When she arrived to the emergency room she was found to be in atrial fibrillation with RVR. She did take her diltiazem this morning but did not take her beta ros. Her current heart rate is in the low 110-120s, we will try giving her her home dose of her medicine and continue to monitor. She is also mildly wheezy on exam, for which we will try breathing treatments. We will continue her Coumadin and place patient on fall precautions as well. If she still continues to feel weak after improving her heart rate and blood pressure we can consider physical therapy and occupational therapy consult. Patient may also require cardiology consultation regarding adjustment of her medications. <Zachary Mota - Last Filed: 08/12/18 04:21> Date of Encounter: 08/12/18 Time of Encounter: 21:00 Internal Medicine - H&P: HPI Chief complaint: Weakness Admitted From: Home Plans for Post Hospital Care: Home History of present illness: Ms. Slade is a 73 year old female with past medical history of Afib on Warfarin, COPD, CHF, HLD, HTN, and CABG with valve replacement. She presented to the ED today complaining of weakness. States this has been occuring for the past 1-2 years and has progressively gotten worse. She states she no longer has the energy to work out, but denies any other limitations. She does note some increased shortness of breath that is unchanged with activity. Denies any fever, chills, night sweats, recent illnesses, abdominal pain, nausea, vomiting, headache, numbness, or tingling. She does admit to skipping her home dose of metoprolol this morning because she read online that it can cause fatigue. She is requesting a change in her cardiac medications. Denies any other complaints. Past Med Surg Social Fam HX - Past Medical History Medical history: arthritis, asthma, atrial fibrillation, CHF, COPD, coronary artery disease, CVA, fibromyalgia, glaucoma, hyperlipidemia, hypertension, myocardial infarction, thyroid disease, valvular heart disease, other Additional medical history: carotid stenosis Psychiatric history: depression - Past Surgical History Surgical History: coronary bypass (CABG), heart valve replacement, orthopedic, other, other Additional surgical history: right leg ablation. orif 5th metatarsal. left upper eyelid - Social History Smoking Status: Current every day smoker Smokeless Tobacco Status: No Alcohol use: none Drug use: none - Family History Father Adopted: No Family Member Ethnicity: Non- Living Status: Hx Family Cardiac Disorders: Yes Hx Family Respiratory Disorders: Yes (Emphysema) Hx Family Cancer: No Hx Family GI Disorders: No Hx Family Endocrine Disorder: No Hx Family Neuromuscular Disorders: No Hx Family Neurologic Disorders: No Hx Family HEENT Disorders: No Hx Family Autoimmune Disorders: No Mother Living Status: Hx Family Neurologic Disorders: Yes (dementia) All Systems PM: A 10-system review of systems was performed and is negative for pertinent findings except as documented above in the HPI. - Constitutional Constitutional: weakness, no chills, no fever(s), no night sweats - EENT Eyes: no blurry vision, no change in vision, no photophobia Ears: no decreased hearing, no tinnitus Nose, mouth and throat: nasal congestion, no sinus pain, no sinus pressure - Cardiovascular Cardiovascular ROS IM: palpitations, no chest pain, no diaphoresis, no dyspnea, no dyspnea on exertion, no edema, no lightheadedness - Respiratory Respiratory: no cough, no hemoptysis, no dyspnea on exertion, no wheezing, no chest congestion, no excessive phlegm production - Gastrointestinal Gastrointestinal: no abdominal pain, no change in bowel habits, no change in stool character, no nausea, no vomiting - Genitourinary Genitourinary: no dysuria, no urinary frequency, no urinary hesitancy, no urinary incontinence, no urinary urgency - Musculoskeletal Musculoskeletal ROS IM: no arthralgias, no myalgias, no numbness, no tingling - Integumentary Integumentary IM: no new lesions, no rash, no unusual bruising, no jaundice - Neurological Neurological ROS: weakness, no confusion, no frequent falls, no headache(s), no numbness, no tingling - Hematologic/Lymphatic Hematologic/Lymphatic: no easy bleeding, no easy bruising - Constitutional Vitals: Temp Pulse Resp BP Pulse Ox 98.5 F 118 26 120/84 92 08/11/18 16:38 08/11/18 18:31 08/11/18 18:31 08/11/18 18:31 08/11/18 18:31 General appearance: Present: cooperative, A&O X 3, pleasant, no acute distress, answers questions appropriately Exam: General: well developed and well nourished female in no distress Head: normocephalic and atraumatic Eyes: PERRL, EOMI, sclera anicteric, conjunctiva pink Neck: supple, trachea midline Lungs: grossly diminished with fine wheezes in bases bilaterally. non-labored breathing. no rales or rhonchi. Heart: Irregularly irregular. no murmurs, clicks, or rubs appreciated GI: abdomen soft, non-tender, non-distended. normoactive bowel sounds Extremities: warm, peripheral pulses palpable and symmetrical. no edema, cyanosis, or calf tenderness Neuro: A&Ox3. no focal deficits. no speech difficulty or abnormality Skin: warm, dry, intact Internal Med - H&P Results - Labs CBC & Chem 7: 08/12/18 02:38 08/12/18 02:38 Labs: Short CBC 08/11/18 Range/Units 17:05 WBC 7.5 (4.3-11.1) K/mcL Hgb 14.9 (11.5-15.4) g/dL Hct 46.4 H (35.3-44.9) % Plt Count 264 (140-400) K/mcL Neutrophils # 5.1 (1.6-8.9) K/mcL BMP 08/11/18 17:05 Sodium 141 Potassium 3.7 Chloride 100 Carbon Dioxide 35 H BUN 30 H Creatinine 0.92 Glucose 209 H Calcium 10.3 Cardiac Enzymes 08/11/18 Range/Units 17:05 Troponin I 0.03 (< 0.04) ng/mL - Impressions ITS Impressions Chest X-Ray 08/11/18 16:36 IMPRESSION: No focal airspace consolidation or pulmonary vascular congestion. D/ / Scott Mcnally / Scott Mcnally Interpreting Provider: Scott Mcnally - Assessment and plan (1) Atrial fibrillation with RVR Current Visit: Yes Status: Acute Assessment and plan: Likely due to medication non-compliance Since pt took home dose of Cardizem this morning, will administer her home dose of Metoprolol Recommended she continue her home medications Can consider cardio consult in the AM if RVR does not resolve with home meds Should be able to follow up outpatient for medication management (2) COPD (chronic obstructive pulmonary disease) Current Visit: Yes Status: Chronic Assessment and plan: Not in acute exacerbation Did have some fine wheezes on physical exam Will trial Xopenex neb since pt complains her albuterol inhaler makes her heart race Qualifiers: COPD type: unspecified COPD Qualified Code(s): J44.9 - Chronic obstructive pulmonary disease, unspecified (3) Atrial fibrillation Current Visit: Yes Status: Chronic Assessment and plan: plan as above Qualifiers: Atrial fibrillation type: chronic Qualified Code(s): I48.2 - Chronic atrial fibrillation (4) Coronary artery disease Current Visit: Yes Status: Chronic Assessment and plan: Continue home medications Qualifiers: Coronary Disease-Associated Artery/Lesion type: [place] artery [place] vs. transplanted heart: [place] heart Associated angina: without angina Qualified Code(s): I25.10 - Atherosclerotic heart disease of [place] coronary artery without angina pectoris (5) History of heart valve replacement Current Visit: Yes Status: Chronic Assessment and plan: INR in appropriate range at 2.8 Continue warfarin (6) Tobacco abuse Current Visit: Yes Status: Chronic Assessment and plan: Chronic issue - smokes 1/4 ppd Spent >10 minutes discussing the importance of smoking cessation and treatment alternatives (7) DVT prophylaxis Current Visit: Yes Status: Acute Assessment and plan: On Warfarin - Time Spent With Patient Total time spent is greater than 50% in coordination of care (as documented) at patient's floor/unit and/or counseling patient:
[2018-08-11] MEDS ORDERED: *HR* Warfarin 5 MG TABLET PO SCH ×2 (20:30→21:00)
[2018-08-11] MEDS ORDERED: *HR* Metoprolol 5 MG/5 ML VIAL IVP PRN (20:58)
[2018-08-11] MEDS ORDERED: *HR* Dextrose 50 % in Water (Syg) 50 ML SYRINGE IVP PRN (21:01)
[2018-08-11] MEDS ORDERED: D5% in Water 1,000 ML IVC PRN (21:01)
[2018-08-11] MEDS ORDERED: Dextrose Gel 15 GM/37.5 ML TUBE PO PRN ×2 (21:01)
[2018-08-11] MEDS ORDERED: *HR* Warfarin 5 MG TABLET PO ONE (21:15)
[2018-08-11] MEDS: Levalbuterol Neb 1.25 MG/3 ML IH SCH (21:25)
[2018-08-12 03:12] LABS: Basophils # 0.1 K/mcL (0.0-0.2); Eosinophils # 0.2 K/mcL (0.0-0.6); Eosinophils % 3.4 %; Hematocrit 44.4 % (35.3-44.9); Hemoglobin 13.7 g/dL (11.5-15.4); Immature Granulocytes % 0.1 % (0-4); Lymphocytes # 1.2 K/mcL (0.6-4.6); Lymphocytes % 17.7 %; Mean Corpuscular HGB Conc 30.9 g/dL (31.6-35.5); Mean Corpuscular Hemoglobin 31.7 pg (28.0-33.3); Mean Corpuscular Volume 102.8 fL (83.0-100.0); Mean Platelet Volume 11.7 fL (9.4-12.4); Monocytes # 1.1 K/mcL (0.0-1.3); Monocytes % 15.9 %; Neutrophils # 4.3 K/mcL (1.6-8.9); Platelet Count 244 K/mcL (140-400); Red Blood Count 4.32 M/mcL (3.82-4.97); Red Cell Distribution Width 13.1 % (11.5-14.5); Segmented Neutrophils % 60.9 %
[2018-08-12 03:20] LABS: Prothrombin Time 33.7 Seconds (9.4-12.1)
[2018-08-12 03:23] LABS: BUN/Creatinine Ratio 35 (6-26); Blood Urea Nitrogen 30 mg/dL (8-23); Calcium 9.4 mg/dL (8.6-10.3); Carbon Dioxide 35 mEq/L (23-29); Chloride 102 mEq/L (98-107); Glucose 106 mg/dL (70-105); Magnesium 1.9 mg/dL (1.6-2.6); Osmolality,Calculated 299 (280-300); Phosphorous 3.7 mg/dL (2.7-4.5); Potassium 3.8 mEq/L (3.5-5.1); Sodium 141 mEq/L (136-145); eGFR For Non-African Americans > 60 (> 60)
[2018-08-12] MEDS: Levalbuterol Neb 1.25 MG/3 ML IH SCH ×4 (03:57→21:59)
--- NOTE | 2018-08-12 08:04 | Internal Med Progress Note ---
Hospitalist Progress Note - Encounter Date of Encounter: 08/12/18 Time of Encounter: 14:59 - Subjective Interval History: I have seen and evaluated the patient at bedside. She reports skipping one dose of her medication at home due to generalized weakness when she takes the medication. she denies chest pain, nausea or vomiting. denies lightheadedness or palpitation. - Exam Vitals: Temp Pulse Resp BP Pulse Ox 97.8 F 81 18 103/71 94 08/12/18 07:09 08/12/18 07:09 08/12/18 07:09 08/12/18 07:09 08/12/18 07:09 Exam: Vitals: Reviewed General: Alert and oriented x4. In mild distress due to sob Skin: Normal color, no rash, no lesions. HEENT: EOM, pupils equal, round and reactive. Cardiovascular: Irregularly, irregular, Normal S1 & S2, no rubs, murmurs or gallops. Lungs: Decreased breath sounds b/l, mild expiratory wheezing, no crackles. Abdomen: Soft, non-tender, no rigidity. Extremities: No deformity, no edema or tenderness, no joint swelling or clubbing . Neurological:Normal cognition and motor skills. Rest of the physical exam is non contributory - Assessment and Plan (1) Atrial fibrillation with RVR Current Visit: Yes Status: Resolved Assessment and Plan: keep patient in the hospital for 24 more hours to continue telemetry monitoring Continue diltiazem 360 mg by mouth daily, and metoprolol 12.5 mg by mouth twice a day. On warfarin per pharmacy dosing. INR therapeutic. (2) Coronary artery disease Current Visit: Yes Status: Chronic Assessment and Plan: Continue aspirin 81 mg by mouth daily. (3) Tobacco abuse Current Visit: Yes Status: Chronic Assessment and Plan: Patient comes in the importance of tobacco cessation (4) History of heart valve replacement Current Visit: Yes Status: Chronic Assessment and Plan: Patient on warfarin for anticoagulation with therapeutic INR. (5) COPD (chronic obstructive pulmonary disease) Current Visit: Yes Status: Chronic Assessment and Plan: Continue oxygen 2 L by nasal cannula, titrate for O2 sat duration more than 92% Patient currently not on home oxygen. But she qualifies for home O2, hypoxemic O2 sat of 88% at rest. Continue bronchodilators as scheduled. On Singulair. (6) Chronic respiratory failure with hypoxia Current Visit: Yes Status: Acute Assessment and Plan: Plan as above. DVT Prophylaxis: General warfarin with therapeutic INR. Due to valvular heart disease. - Summary of Assessment and Plan Summary of Assessment and Plan: Patient to remain in the hospital due to hypoxemic respiratory failure requiring oxygen. human services case manager consulted for home oxygen qualification. - Time Spent with Patient Total time spent is greater than 50% in coordination of care (as documented) at patient's floor/unit and/or counseling patient: Greater than 35 minutes (45) Plan of Care Discussed with: patient (patient's daughter and the nurse.) Internal Medicine: Result - Labs CBC & Chem 7: 08/12/18 02:38 08/12/18 02:38 Labs: Short CBC 08/11/18 08/12/18 Range/Units 17:05 02:38 WBC 7.5 7.0 (4.3-11.1) K/mcL Hgb 14.9 13.7 (11.5-15.4) g/dL Hct 46.4 H 44.4 (35.3-44.9) % Plt Count 264 244 (140-400) K/mcL Neutrophils # 5.1 4.3 (1.6-8.9) K/mcL BMP 08/11/18 08/12/18 17:05 02:38 Sodium 141 141 Potassium 3.7 3.8 Chloride 100 102 Carbon Dioxide 35 H 35 H BUN 30 H 30 H Creatinine 0.92 0.85 Glucose 209 H 106 H Calcium 10.3 9.4 Cardiac Enzymes 08/11/18 Range/Units 17:05 Troponin I 0.03 (< 0.04) ng/mL - ABG Interpretation ABG results: PT/INR, D-dimer PT 33.7 Seconds (9.4-12.1) H 08/12/18 02:38 - Impressions Impressions Chest X-Ray 08/11/18 16:36 IMPRESSION: No focal airspace consolidation or pulmonary vascular congestion. D/ / Scott Mcnally / Scott Mcnally Interpreting Provider: Scott Mcnally Consult Discharge Plan - Plan Referrals: Desmond Howe MD [Primary Care Provider] - (2) Coronary artery disease Qualifiers: Coronary Disease-Associated Artery/Lesion type: [place] artery [place] vs. transplanted heart: [place] heart Associated angina: without angina Qualified Code(s): I25.10 - Atherosclerotic heart disease of [place] coronary artery without angina pectoris (5) COPD (chronic obstructive pulmonary disease) Qualifiers: COPD type: unspecified COPD Qualified Code(s): J44.9 - Chronic obstructive pulmonary disease, unspecified
[2018-08-12] MEDS: Cyanocobalamin (B-12) 1,000 MCG TABLET PO SCH (09:04)
[2018-08-12] MEDS: Diltiazem CD (24hr) 180 MG CAPSULE PO SCH (09:04)
[2018-08-12] MEDS: Insulin LISPRO 300 UNITS/3 ML VIAL SQ SCH ×3 (09:05→16:44)
[2018-08-12] MEDS: Aspirin Enteric Coated 81 MG Tablet PO SCH (09:05)
[2018-08-12] MEDS ORDERED: Warfarin perPT PO PRN (13:02)
[2018-08-12] MEDS ORDERED: *HR* Warfarin 10 MG TABLET PO SCH (18:00)
[2018-08-12] MEDS ORDERED: *HR* Warfarin 5 MG TABLET PO ONE (18:00)
[2018-08-12] MEDS ORDERED: Insulin LISPRO 300 UNITS/3 ML VIAL SQ SCH (21:00)
[2018-08-13] MEDS: Levalbuterol Neb 1.25 MG/3 ML IH SCH ×2 (03:55→10:52)
[2018-08-13 06:29] LABS: Basophils # 0.1 K/mcL (0.0-0.2); Basophils % 1.3 %; Eosinophils # 0.3 K/mcL (0.0-0.6); Eosinophils % 4.5 %; Hematocrit 44.2 % (35.3-44.9); Hemoglobin 13.5 g/dL (11.5-15.4); Immature Granulocytes % 0.3 % (0-4); Lymphocytes # 1.3 K/mcL (0.6-4.6); Lymphocytes % 17.4 %; Mean Corpuscular HGB Conc 30.5 g/dL (31.6-35.5); Mean Corpuscular Hemoglobin 31.5 pg (28.0-33.3); Mean Corpuscular Volume 103.3 fL (83.0-100.0); Mean Platelet Volume 11.6 fL (9.4-12.4); Monocytes # 1.2 K/mcL (0.0-1.3); Monocytes % 15.5 %; Neutrophils # 4.6 K/mcL (1.6-8.9); Platelet Count 234 K/mcL (140-400); Red Blood Count 4.28 M/mcL (3.82-4.97)
[2018-08-13 06:36] LABS: INR 2.8; Prothrombin Time 31.8 Seconds (9.4-12.1)
[2018-08-13 07:06] LABS: BUN/Creatinine Ratio 33 (6-26); Blood Urea Nitrogen 28 mg/dL (8-23); Calcium 9.3 mg/dL (8.6-10.3); Carbon Dioxide 37 mEq/L (23-29); Chloride 100 mEq/L (98-107); Glucose 106 mg/dL (70-105); Magnesium 1.8 mg/dL (1.6-2.6); Osmolality,Calculated 304 (280-300); Phosphorous 3.7 mg/dL (2.7-4.5); Potassium 3.6 mEq/L (3.5-5.1); Sodium 144 mEq/L (136-145); eGFR For Non-African Americans > 60 (> 60)
[2018-08-13] MEDS: Aspirin Enteric Coated 81 MG Tablet PO SCH (08:01)
[2018-08-13] MEDS: Cyanocobalamin (B-12) 1,000 MCG TABLET PO SCH (08:01)
[2018-08-13] MEDS: Insulin LISPRO 300 UNITS/3 ML VIAL SQ SCH ×2 (08:02→11:59)
[2018-08-13] MEDS: Diltiazem CD (24hr) 180 MG CAPSULE PO SCH (08:05)
--- NOTE | 2018-08-13 08:30 | Discharge Summary ---
- NOTES TO OUTPATIENT PROVIDER Notes to Outpatient Provider: Follow-up with your engine cleaner within 1-2 weeks of hospital discharge. Orders not resulted at time of discharge: Pending orders 08/11/18 16:36 ECG 12 lead ECG [ECG] Stat 08/12/18 02:38 Hgb A1C AM 0400 08/14/18 04:00 INR/PT [Prothrombin Time INR] [COAG] AM 0400 Date of Encounter: 08/13/18 Time of Encounter: 08:26 - Discharge Diagnosis (1) Atrial fibrillation with RVR Priority: Secondary Status: Resolved (2) Coronary artery disease Priority: Secondary Status: Chronic Qualifiers: Coronary Disease-Associated Artery/Lesion type: [place] artery [place] vs. transplanted heart: [place] heart Associated angina: without angina Qualified Code(s): I25.10 - Atherosclerotic heart disease of [place] coronary artery without angina pectoris (3) Tobacco abuse Priority: Secondary Status: Chronic (4) History of heart valve replacement Priority: Secondary Status: Chronic (5) COPD (chronic obstructive pulmonary disease) Priority: Secondary Status: Chronic Qualifiers: COPD type: unspecified COPD Qualified Code(s): J44.9 - Chronic obstructive pulmonary disease, unspecified (6) Chronic respiratory failure with hypoxia Priority: Secondary Status: Acute Hospital course: Ms. Slade is a 73 year old female past medical history of Afib on Warfarin, COPD, CHF, HLD, HTN, and CABG with valve replacement. She presented to the ED today complaining of weakness. Patient reported missing one dose of her medications (cardizem and metoprolol). Patient admitted to the hospital due to A. fib and RVR, she is started on her home medication and rate was controlled. Patient has history of tobacco abuse, and is a current smoker. Head O2 sat rest has been of 88%, which makes the patient qualified for home oxygen. Patient was educated about importance of using the oxygen, as recommended, patient was also educated about the importance of smoking cessation. A. fib is rate controlled on her home medication, patient is hemodynamically stable to be discharged home. Recommended to follow-up with her engine cleaner within 1-2 weeks of hospital discharge. - Time Spent with Patient Total time spent providing and/or coordinating discharge services: Greater than 30 minutes (35) - Discharge Medications Prescriptions: Cyanocobalamin (B-12) [Vitamin B12] 1,000 mcg PO DAILY 30 Days #30 tablet Home Medications: Aspirin [Lo-Dose Aspirin EC] 81 mg PO DAILY 07/20/15 [History] Montelukast [Singulair] 10 mg PO HS 07/20/15 [History] Pravastatin Sodium [Pravachol] 20 mg PO HS 07/20/15 [History] clonazePAM [Klonopin] 0.5 mg PO HS PRN 08/24/16 [History] methIMAzole [Tapazole] 2.5 mg PO Q48H 08/24/16 [History] Albuterol Sulfate [Albuterol Inhaler] 2 puff IH Q4HR PRN 11/18/16 [History] Warfarin [Coumadin] 10 mg PO SUMOTUTHFR 11/18/16 [History] Ascorbic Acid [Vitamin C] 500 mg PO DAILY 05/09/17 [History] dilTIAZem HCl [Diltiazem 24Hr Cd] 360 mg PO DAILY 05/09/17 [History] Warfarin [Coumadin] 5 mg PO WESA 12/14/17 [History] Losartan [Cozaar] 25 mg PO DAILY #90 tablet 12/28/17 [Rx] BuPROPion XL (24 HR) [Wellbutrin Xl] 150 mg PO DAILY 05/18/18 [History] Chlorthalidone 50 mg PO DAILY 05/18/18 [History] Potassium Chloride [Klor-Con] 25 meq PO DAILY 05/25/18 [History] Acetaminophen [Tylenol] 1,000 mg PO Q6HR PRN #90 tablet 05/31/18 [Rx] Metoprolol [Lopressor] 12.5 mg PO BID 05/31/18 [History] Vit A/Vit C/Vit E/Zinc/Copper [Preservision Areds Tablet] 1 each PO DAILY 05/31/18 [History] Mirabegron [Myrbetriq] 50 mg PO DAILY 08/12/18 [History] Cyanocobalamin (B-12) [Vitamin B12] 1,000 mcg PO DAILY tablet 08/13/18 [Rx] Cyanocobalamin (B-12) [Vitamin B12] 1,000 mcg PO DAILY 30 Days #30 tablet 08/13/18 [Rx] Allergies/Adverse Reactions: Allergy/AdvReac Type Severity Reaction Status Date / Time furosemide Allergy Hives Verified 05/31/18 07:32 Iodinated Contrast- Oral and Allergy Rash Verified 05/31/18 07:32 IV Dye Penicillins [PCN] Allergy anaphylacti Verified 05/31/18 07:32 c Sulfa (Sulfonamide Allergy Hives Verified 05/31/18 07:32 Antibiotics) Barbiturates AdvReac Seizure Verified 05/31/18 07:33 budesonide [From Symbicort] AdvReac Weakness Verified 05/31/18 07:32 Formoterol [From Symbicort] AdvReac Weakness Verified 05/31/18 07:32 Date of admission: 08/12/18 09:01 Primary care physician: Desmond Howe MD - Constitutional Vitals: Temp Pulse Resp BP Pulse Ox 97.9 F 103 17 103/69 93 08/13/18 07:17 08/13/18 07:17 08/13/18 07:17 08/13/18 07:17 08/13/18 07:17 General appearance: Present: cooperative, A&O X 3, pleasant, no acute distress, answers questions appropriately Exam: Vitals: Reviewed General: Alert and oriented x4. In mild distress due to sob Skin: Normal color, no rash, no lesions. Cardiovascular: Irregularly, irregular, Normal S1 & S2, no rubs, murmurs or gallops. Lungs: Decreased breath sounds b/l, mild expiratory wheezing, no crackles. Abdomen: Soft, non-tender, no rigidity. NABS in all 4 quadrants Extremities: No deformity, no edema or tenderness, no joint swelling or clubbing. Neurological:Normal cognition and motor skills. Rest of the physical exam is non contributory - Patient Status Disposition: Home, Self-Care Condition: Good Functional capacity at discharge: independent ambulation Overall status at discharge: patient is back to baseline - Discharge Instructions Instructions: Atrial Fibrillation (DC), How to Stop Smoking (GEN), Cigarette Smoking and Your Health (GEN), Using Oxygen at Home (GEN) Follow Up With: Desmond Howe MD [Primary Care Provider] - 08/21/18 11:00 am (Please follow up as schedule...) Sandra Johnson DO [Partnered Physician] - ([facility] office will call patient for an appt.) - Diet and Activity Activity: wear oxygen at all times (2 litters ) Diet: low salt diet
[2018-08-13 09:42] LABS: Estimated Average Glucose 123 mg/dl; Hemoglobin A1C 5.9 %
[2018-08-13 11:04] VITALS: BP 102/55
[2018-08-13] MEDS ORDERED: Warfarin perPT PO PRN (11:30)
[2018-08-13 12:17] LABS: ABG Base Excess 11 mEq/L (-2 to 3); ABG HCO3 39 mEq/L (21-27); ABG Oxygen Saturation 92 % (95-98); ABG PCO2 66 mmHg (35-45); ABG PH 7.38 pH Units (7.32-7.45); ABG PO2 69 mmHg (85-104); ABG TCO2 41 mEq/L (20-26)
--- NOTE | 2018-08-13 16:22 | Electrocardiograph Report ---
[address] [place], [place] [address] Test Date: 2018-08-11 Pat Name: Betina Slade Department: [id number] Room: 2A14 Gender: F Mobile Marketing Manager: DEBI : 1945 Requested By: Jessie Rivero Order Number: [id number] Reading MD: Yony Davis Measurements Intervals [place] Rate: 142 P: NV: 0 QRS: -44 QRSD: 92 T: 93 QT: 285 QTc: 367 Interpretive Statements ATRIAL FIBRILLATION WITH RAPID VENTRICULAR RESPONSE MARKED LEFT AXIS DEVIATION MODERATE ST DEPRESSION ABNORMAL QRS-T ANGLE Electronically Signed On 08-13-2018 16:20:41 EST by Yony Davis
[2018-08-13] MEDS ORDERED: *HR* Warfarin 5 MG TABLET PO ONE (18:00)
== END 2018-08-13 15:40 | disposition home or self-care (01) | DRG 309 ==
LOC: EMEROOARM 16:05 → 2ANU 16:05
PROVIDERS: ADMIT Internal Medicine Cardiovascular Disease; ATTEND Internal Medicine Cardiovascular Disease

== ENCOUNTER 2018-12-03 12:51 | Inpatient (IN) ==
[2018-12-03] MEDS ORDERED: Isovue-370 500 ML BOTTLE IVP ONE (13:10)
--- NOTE | 2018-12-03 13:20 | Emergency Department Note ---
Disposition Clinical Impression: Atrial fibrillation with RVR Dyspnea Qualifiers: Dyspnea type: shortness of breath Qualified Code(s): R06.02 - Shortness of breath Acute and chronic respiratory failure Qualifiers: Respiratory failure complication: hypoxia and hypercapnia Qualified Code(s): J96.21 - Acute and chronic respiratory failure with hypoxia Disposition: Admitted As Inpatient Condition: Fair SOB HPI - General Chief Complaint: ED Shortness of Breath/Dyspnea Stated Complaint: ALEKS Time Seen by Provider: 12/03/18 12:57 Source: patient Mode of arrival: private vehicle Limitations: no limitations Nursing Notes Reviewed: Yes Vital Signs Reviewed: Yes - History of Present Illness 73-year-old female history of COPD wears 2 L at night and during the day as needed, atrial fibrillation on Coumadin, mitral and aortic valve replacements who presents to the ER from urgent care were shortness of breath and cough. Patient has had symptoms for approximately 5 days. She had a nonproductive cough until this morning when it became productive yellow sputum. She describes sharp left-sided chest pain. Denies any fevers or chills. No nausea or vomiting. She was seen at urgent care where she received 3 DuoNeb treatments as well as IM Solu-Medrol. Patient was referred here for further evaluation. Denies a prior history of DVT or PE. No other complaints. Pt Subjective Complaint: shortness of breath, cough Onset (ago): day(s) Context: recent illness Severity: moderate Consistency/Duration: constant Improves with: nothing Worsens with: nothing Known history of: COPD Associated symptoms: Reports: chest pain, cough, sputum production. Denies: fever Treatment prior to arrival: oxygen, bronchodilator, other (Steroids) Cough present: Yes Cough Description: Involuntary Sputum Color: Yellow - Related Data Home oxygen amount: 2 liters (At night and as needed) Home Medications Medication Instructions Recorded Confirmed Aspirin [Lo-Dose Aspirin EC] 81 mg PO DAILY 07/20/15 09/05/18 Montelukast [Singulair] 10 mg PO HS 07/20/15 09/05/18 Pravastatin Sodium [Pravachol] 20 mg PO HS 07/20/15 09/05/18 clonazePAM [Klonopin] 0.5 mg PO HS PRN 08/24/16 09/05/18 Albuterol Sulfate [Albuterol 2 puff IH Q4HR PRN 11/18/16 09/05/18 Inhaler] Ascorbic Acid [Vitamin C] 500 mg PO DAILY 05/09/17 09/05/18 dilTIAZem HCl [Diltiazem 24Hr Cd] 360 mg PO DAILY 05/09/17 09/05/18 BuPROPion XL (24 HR) [Wellbutrin 150 mg PO DAILY 05/18/18 09/05/18 Xl] Chlorthalidone 50 mg PO DAILY 05/18/18 09/05/18 Vit A/Vit C/Vit E/Zinc/Copper 1 each PO DAILY 05/31/18 09/05/18 [Preservision Areds Tablet] Mirabegron [Myrbetriq] 50 mg PO DAILY 08/12/18 09/05/18 Acetaminophen [Tylenol] 1,000 mg PO Q6HR PRN 09/04/18 09/05/18 Budesonide/Formoterol 80/4.5 1 puff IH BIDR 09/04/18 09/05/18 [Symbicort 80/4.5] Warfarin Sodium 5 mg PO WESA 09/05/18 09/05/18 Warfarin Sodium 10 mg PO SUMOTUTHFR 09/05/18 09/05/18 methIMAzole [Tapazole] 2.5 mg PO Q48H 09/05/18 09/05/18 Previous Rx's Medication Instructions Recorded Losartan [Cozaar] 25 mg PO DAILY #90 tablet 12/28/17 Cyanocobalamin (B-12) [Vitamin B12] 1,000 mcg PO DAILY tablet 08/13/18 Metoprolol [Lopressor] 25 mg PO BID #60 tablet 09/06/18 Allergies Allergy/AdvReac Type Severity Reaction Status Date / Time furosemide Allergy Hives Verified 12/03/18 11:00 Iodinated Contrast- Oral and Allergy Rash Verified 12/03/18 11:00 IV Dye Penicillins [PCN] Allergy anaphylacti Verified 12/03/18 11:00 c Sulfa (Sulfonamide Allergy Hives Verified 12/03/18 11:00 Antibiotics) Barbiturates AdvReac Seizure Verified 12/03/18 11:00 All systems ED: reviewed and negative except as stated. Constitutional: Denies: fever, chills Cardiovascular: Reports: chest pain Respiratory: Reports: cough, dyspnea, sputum production Gastrointestinal: Denies: abdominal pain, nausea, vomiting, diarrhea Past Medical History - Past Medical History Attestation: Yes The following information was validated with the patient. Source: patient Medical history: Reports: arthritis, asthma, atrial fibrillation, CHF, COPD, coronary artery disease, CVA, fibromyalgia, glaucoma, hyperlipidemia, hypertension, myocardial infarction, thyroid disease, valvular heart disease, other Surgical history: Reports: coronary bypass (CABG), heart valve replacement, orthopedic, other, other Psychiatric history: Reports: depression HOSPITAL ADMITTING CLERK history: Reports: no HOSPITAL ADMITTING CLERK history - Social History Smoking Status: Current every day smoker Smokeless Tobacco Status: No Alcohol use: Reports: unknown Drug use: Reports: none Physical Exam - General Limitations: no limitations General appearance: alert, in no apparent distress - Head Head exam: atraumatic, normocephalic, normal inspection - Eye Eye exam: Present: normal appearance - ENT ENT exam: normal exam - Neck Neck exam: Present: normal inspection - Chest Chest inspection: Present: normal inspection, symmetric chest wall rise - Respiratory Respiratory exam: Present: other (Tachypnea. Diminished but clear lungs. Accessory muscle use.) - Cardiovascular Cardiovascular exam: Present: tachycardia, irregular rhythm, normal heart sounds, systolic murmur - Abdominal Exam Abdominal exam: Present: soft, Non-Tender. Absent: tenderness, distention, rigidity - Extremities Exam Extremities exam: Present: normal inspection, full ROM - Expanded Upper Extremity Exam Shoulder exam: Present: normal inspection, full ROM Arm exam: Present: normal inspection, full ROM Elbow exam: Present: normal inspection, full ROM Forearm/Wrist exam: Present: normal inspection, full ROM Hand exam: Present: normal inspection, full ROM - Expanded Lower Extremity Exam Hip/Pelvis exam: Present: normal inspection, full ROM Upper leg exam: Present: normal inspection, full ROM Knee exam: Present: normal inspection, full ROM Lower leg exam: Present: normal inspection, full ROM Ankle exam: Present: normal inspection, full ROM Foot/toe exam: Present: normal inspection, full ROM - Skin Skin exam: Present: warm, dry Course Course Narrative: Patient seen and examined. Vital signs reviewed. She is noted to be in A. fib RVR here. Heart rate is 123 on intake however she sounds faster on exam. She was 86% on her personal oxygen. This was increased to 3 L. We will obtain an EKG. Chest x-ray reviewed from urgent care without acute findings. Given her hypoxia and increased work of breathing plan for CT imaging. Labs and admission. - Reevaluation(s) Reevaluation #1: Patient given Cardizem bolus and started on drip. She is currently at 15 of Cardizem with a heart rate of around 110. Awaiting CT imaging. Discussed with the patient that she will need to be admitted. - Consultations Consultation #1: I spoke with the [place] transfer center as the patient has an appointment in 1 week to evaluate for a tricuspid valve replacement and ablation. Was questioning if it would be more pertinent for the patient to be transferred there for expedition of this given the fact that she was in A. fib with RVR. They spoke with the patient's recruiter coordinator was also on-call who recommended admission here for stabilization and follow-up with her regularly scheduled appointment next week. Vital Signs Temperature 98.7 F 12/03/18 12:53 Pulse Rate 123 12/03/18 12:53 Respiratory Rate 22 12/03/18 12:53 Blood Pressure 111/57 12/03/18 12:53 O2 Sat by Pulse Oximetry 87 12/03/18 12:53 Temperature 98.7 F 12/03/18 12:53 Pulse Rate 109 12/03/18 16:15 Respiratory Rate 22 12/03/18 16:15 Blood Pressure 124/84 12/03/18 16:15 O2 Sat by Pulse Oximetry 95 12/03/18 16:15 Oxygen Delivery Oxygen Delivery Nasal Cannula Shortness of Breath/Dyspnea - MDM Narrative Medical decision making narrative: 73-year-old female presenting with shortness of breath for 5 days. She is well- appearing here noted to be tachycardic and hypoxic. She received DuoNeb treatments and steroids prior to arrival. She was started on Cardizem for her tachycardia. CT is negative for acute PE with findings suggestive of a chronic pulmonary embolism. Her labs are grossly unremarkable with a slightly elevated BNP. Case was discussed with [place] given concern for potential need for transfer as the patient is being worked up however recommended admission here. The patient is admitted to the hospitalist service for further management. - Lab Data Lab results reviewed: Yes I reviewed the patient's lab results. Result diagrams: 12/03/18 13:16 12/03/18 13:16 Lab Results 12/03/18 12/03/18 12/03/18 Range/Units 13:16 13:16 13:16 WBC 7.3 (4.3-11.1) K/mcL RBC 4.56 (3.82-4.97) M/mcL Hgb 14.7 (11.5-15.4) g/dL Hct 47.3 H (35.3-44.9) % MCV 103.7 H (83.0-100.0) fL MCH 32.2 (28.0-33.3) pg MCHC 31.1 L (31.6-35.5) g/dL RDW 13.5 (11.5-14.5) % Plt Count 205 (140-400) K/mcL MPV 11.6 (9.4-12.4) fL Immature Gran % 0.1 (0-4) % Seg Neutrophils % 81.3 % Lymphocytes % 11.2 % Monocytes % 4.5 % Eosinophils % 1.8 % Basophils % 1.1 % Neutrophils # 6.0 (1.6-8.9) K/mcL Lymphocytes # 0.8 (0.6-4.6) K/mcL Monocytes # 0.3 (0.0-1.3) K/mcL Eosinophils # 0.1 (0.0-0.6) K/mcL Basophils # 0.1 (0.0-0.2) K/mcL PT (9.4-12.1) Seconds INR Sodium 144 (136-145) mEq/L Potassium 3.8 (3.5-5.1) mEq/L Chloride 96 L (98-107) mEq/L Carbon Dioxide 41 H* (23-29) mEq/L BUN 23 (8-23) mg/dL Creatinine 0.77 (0.60-1.20) mg/dL Est GFR ( Amer) > 60 (> 60) Est GFR (Non-Af Amer) > 60 (> 60) BUN/Creatinine Ratio 30 H (6-26) Glucose 177 H (70-105) mg/dL Calculated Osmolality 306 H (280-300) Calcium 10.1 (8.6-10.3) mg/dL Troponin I 0.03 (< 0.04) ng/mL B-Natriuretic Peptide 248 H (Less than 100) pg/mL 12/03/18 Range/Units 13:16 WBC (4.3-11.1) K/mcL RBC (3.82-4.97) M/mcL Hgb (11.5-15.4) g/dL Hct (35.3-44.9) % MCV (83.0-100.0) fL MCH (28.0-33.3) pg MCHC (31.6-35.5) g/dL RDW (11.5-14.5) % Plt Count (140-400) K/mcL MPV (9.4-12.4) fL Immature Gran % (0-4) % Seg Neutrophils % % Lymphocytes % % Monocytes % % Eosinophils % % Basophils % % Neutrophils # (1.6-8.9) K/mcL Lymphocytes # (0.6-4.6) K/mcL Monocytes # (0.0-1.3) K/mcL Eosinophils # (0.0-0.6) K/mcL Basophils # (0.0-0.2) K/mcL PT 43.0 H (9.4-12.1) Seconds INR 3.8 Sodium (136-145) mEq/L Potassium (3.5-5.1) mEq/L Chloride (98-107) mEq/L Carbon Dioxide (23-29) mEq/L BUN (8-23) mg/dL Creatinine (0.60-1.20) mg/dL Est GFR ( Amer) (> 60) Est GFR (Non-Af Amer) (> 60) BUN/Creatinine Ratio (6-26) Glucose (70-105) mg/dL Calculated Osmolality (280-300) Calcium (8.6-10.3) mg/dL Troponin I (< 0.04) ng/mL B-Natriuretic Peptide (Less than 100) pg/mL - Radiology Data Radiology results reviewed: Yes I reviewed the patient's radiology results. Chest CTA 12/03/18 13:10 IMPRESSION: Pulmonary arterial enlargement, in keeping with pulmonary hypertension. Linear filling defect within left lower lobe pulmonary arterial branch, with morphology favoring chronic embolism. Scattered mucous plugging and atelectasis. Persistent mixed density left lower lobe nodule, for which low-grade malignancy again cannot be excluded. Please refer to recent chest CT report for further discussion. Results were called by the radiology call center. D/ / Pete De Souza MD / Pete De Souza MD Interpreting Provider: Pete De Souza MD - EKG Data EKG attestation: Yes I reviewed and interpreted this EKG. EKG results narrative: EKG demonstrates atrial fibrillation with rapid ventricular response with rate of 114. Left axis deviation. Normal intervals. Poor R wave progression. There are ST depressions in leads V5 and V6. No gross ST elevations. Changes from previous EKG include lateral ischemia dated on 09/04/18. Critical Care Time Critical Care Time: Yes Total Critical Care Time: 35 Attestation: Critical care performed: Time is exclusive of separately billable procedures. Time includes: direct patient care, patient reassessment, coordination of patient care, interpretation of data (laboratory data, radiology data, and respiratory data), review of patient's medical records, medical consultation and documentation of patient care. Procedures included in critical care time: Procedures excluded from critical care time: Julio - Julio Situation: Demographics, MOA Background: Presenting Complaint, Relevant PMH, Meds, & Allergies Assessment: Vital Signs, Course and respsone to treatment, Exam Concerns, Patient/Family Expectation, Pertinant Lab Results Recommendation: Barrier(s) to disposition, Recommendation based on pending studies, treatments, or consults SGenia Report Given to: Dr. Jailene Kim Repor Time: 17:17
[2018-12-03 13:32] LABS: Basophils # 0.1 K/mcL (0.0-0.2); Basophils % 1.1 %; Eosinophils # 0.1 K/mcL (0.0-0.6); Eosinophils % 1.8 %; Hematocrit 47.3 % (35.3-44.9); Hemoglobin 14.7 g/dL (11.5-15.4); Immature Granulocytes % 0.1 % (0-4); Lymphocytes # 0.8 K/mcL (0.6-4.6); Lymphocytes % 11.2 %; Mean Corpuscular HGB Conc 31.1 g/dL (31.6-35.5); Mean Corpuscular Hemoglobin 32.2 pg (28.0-33.3); Mean Corpuscular Volume 103.7 fL (83.0-100.0); Mean Platelet Volume 11.6 fL (9.4-12.4); Monocytes # 0.3 K/mcL (0.0-1.3); Monocytes % 4.5 %; Platelet Count 205 K/mcL (140-400); Red Blood Count 4.56 M/mcL (3.82-4.97); Red Cell Distribution Width 13.5 % (11.5-14.5); Segmented Neutrophils % 81.3 %
--- NOTE | 2018-12-03 13:37 | Emergency Department Note ---
Disposition Clinical Impression: Atrial fibrillation with RVR Dyspnea Qualifiers: Dyspnea type: shortness of breath Qualified Code(s): R06.02 - Shortness of breath; R06.00 - Dyspnea, unspecified; R06.01 - Orthopnea Disposition: Admitted As Inpatient Condition: Fair Referrals: Desmond Howe MD [Primary Care Provider] - Forms: ED Satisfaction Letter Time of Disposition: 17:11 General Adult HPI - General Chief complaint: ED Shortness of Breath/Dyspnea Stated complaint: ALEKS Time Seen by Provider: 12/03/18 12:57 Source: patient Mode of arrival: private vehicle Limitations: no limitations - History of Present Illness Pain Scale: 0 - Related Data Home Medications Medication Instructions Recorded Confirmed Aspirin [Lo-Dose Aspirin EC] 81 mg PO DAILY 07/20/15 09/05/18 Montelukast [Singulair] 10 mg PO HS 07/20/15 09/05/18 Pravastatin Sodium [Pravachol] 20 mg PO HS 07/20/15 09/05/18 clonazePAM [Klonopin] 0.5 mg PO HS PRN 08/24/16 09/05/18 Albuterol Sulfate [Albuterol 2 puff IH Q4HR PRN 11/18/16 09/05/18 Inhaler] Ascorbic Acid [Vitamin C] 500 mg PO DAILY 05/09/17 09/05/18 dilTIAZem HCl [Diltiazem 24Hr Cd] 360 mg PO DAILY 05/09/17 09/05/18 BuPROPion XL (24 HR) [Wellbutrin 150 mg PO DAILY 05/18/18 09/05/18 Xl] Chlorthalidone 50 mg PO DAILY 05/18/18 09/05/18 Vit A/Vit C/Vit E/Zinc/Copper 1 each PO DAILY 05/31/18 09/05/18 [Preservision Areds Tablet] Mirabegron [Myrbetriq] 50 mg PO DAILY 08/12/18 09/05/18 Acetaminophen [Tylenol] 1,000 mg PO Q6HR PRN 09/04/18 09/05/18 Budesonide/Formoterol 80/4.5 1 puff IH BIDR 09/04/18 09/05/18 [Symbicort 80/4.5] Warfarin Sodium 5 mg PO WESA 09/05/18 09/05/18 Warfarin Sodium 10 mg PO SUMOTUTHFR 09/05/18 09/05/18 methIMAzole [Tapazole] 2.5 mg PO Q48H 09/05/18 09/05/18 Previous Rx's Medication Instructions Recorded Losartan [Cozaar] 25 mg PO DAILY #90 tablet 12/28/17 Cyanocobalamin (B-12) [Vitamin B12] 1,000 mcg PO DAILY tablet 08/13/18 Metoprolol [Lopressor] 25 mg PO BID #60 tablet 09/06/18 Allergies Allergy/AdvReac Type Severity Reaction Status Date / Time furosemide Allergy Hives Verified 12/03/18 11:00 Iodinated Contrast- Oral and Allergy Rash Verified 12/03/18 11:00 IV Dye Penicillins [PCN] Allergy anaphylacti Verified 12/03/18 11:00 c Sulfa (Sulfonamide Allergy Hives Verified 12/03/18 11:00 Antibiotics) Barbiturates AdvReac Seizure Verified 12/03/18 11:00 All systems ED: reviewed and negative except as stated. Constitutional: Denies: fever, chills Cardiovascular: Reports: chest pain Respiratory: Reports: cough, dyspnea, sputum production Gastrointestinal: Denies: abdominal pain, nausea, vomiting, diarrhea Past Medical History - Past Medical History Attestation: Yes The following information was validated with the patient. Source: patient Medical history: Reports: arthritis, asthma, atrial fibrillation, CHF, COPD, coronary artery disease, CVA, fibromyalgia, glaucoma, hyperlipidemia, hypertension, myocardial infarction, thyroid disease, valvular heart disease, other Surgical history: Reports: coronary bypass (CABG), heart valve replacement, orthopedic, other, other Psychiatric history: Reports: depression HAND WOVEN [employer]PET [employer] MENDER history: Reports: no HAND WOVEN [employer] MENDER history - Social History Smoking Status: Current every day smoker Smokeless Tobacco Status: No Alcohol use: Reports: unknown Drug use: Reports: none Physical Exam - General Limitations: no limitations General appearance: alert, in no apparent distress Course Vital Signs Temperature 98.7 F 12/03/18 12:53 Pulse Rate 123 12/03/18 12:53 Respiratory Rate 22 12/03/18 12:53 Blood Pressure 111/57 12/03/18 12:53 O2 Sat by Pulse Oximetry 87 12/03/18 12:53 Temperature 98.7 F 12/03/18 12:53 Pulse Rate 109 12/03/18 16:15 Respiratory Rate 22 12/03/18 16:15 Blood Pressure 124/84 12/03/18 16:15 O2 Sat by Pulse Oximetry 95 12/03/18 16:15 Oxygen Delivery Oxygen Delivery Nasal Cannula Medical Decision Making - Lab Data Result diagrams: 12/03/18 13:16 12/03/18 13:16 Lab Results 12/03/18 12/03/18 12/03/18 Range/Units 13:16 13:16 13:16 WBC 7.3 (4.3-11.1) K/mcL RBC 4.56 (3.82-4.97) M/mcL Hgb 14.7 (11.5-15.4) g/dL Hct 47.3 H (35.3-44.9) % MCV 103.7 H (83.0-100.0) fL MCH 32.2 (28.0-33.3) pg MCHC 31.1 L (31.6-35.5) g/dL RDW 13.5 (11.5-14.5) % Plt Count 205 (140-400) K/mcL MPV 11.6 (9.4-12.4) fL Immature Gran % 0.1 (0-4) % Seg Neutrophils % 81.3 % Lymphocytes % 11.2 % Monocytes % 4.5 % Eosinophils % 1.8 % Basophils % 1.1 % Neutrophils # 6.0 (1.6-8.9) K/mcL Lymphocytes # 0.8 (0.6-4.6) K/mcL Monocytes # 0.3 (0.0-1.3) K/mcL Eosinophils # 0.1 (0.0-0.6) K/mcL Basophils # 0.1 (0.0-0.2) K/mcL PT (9.4-12.1) Seconds INR Sodium 144 (136-145) mEq/L Potassium 3.8 (3.5-5.1) mEq/L Chloride 96 L (98-107) mEq/L Carbon Dioxide 41 H* (23-29) mEq/L BUN 23 (8-23) mg/dL Creatinine 0.77 (0.60-1.20) mg/dL Est GFR ( Amer) > 60 (> 60) Est GFR (Non-Af Amer) > 60 (> 60) BUN/Creatinine Ratio 30 H (6-26) Glucose 177 H (70-105) mg/dL Calculated Osmolality 306 H (280-300) Calcium 10.1 (8.6-10.3) mg/dL Troponin I 0.03 (< 0.04) ng/mL B-Natriuretic Peptide 248 H (Less than 100) pg/mL 12/03/18 Range/Units 13:16 WBC (4.3-11.1) K/mcL RBC (3.82-4.97) M/mcL Hgb (11.5-15.4) g/dL Hct (35.3-44.9) % MCV (83.0-100.0) fL MCH (28.0-33.3) pg MCHC (31.6-35.5) g/dL RDW (11.5-14.5) % Plt Count (140-400) K/mcL MPV (9.4-12.4) fL Immature Gran % (0-4) % Seg Neutrophils % % Lymphocytes % % Monocytes % % Eosinophils % % Basophils % % Neutrophils # (1.6-8.9) K/mcL Lymphocytes # (0.6-4.6) K/mcL Monocytes # (0.0-1.3) K/mcL Eosinophils # (0.0-0.6) K/mcL Basophils # (0.0-0.2) K/mcL PT 43.0 H (9.4-12.1) Seconds INR 3.8 Sodium (136-145) mEq/L Potassium (3.5-5.1) mEq/L Chloride (98-107) mEq/L Carbon Dioxide (23-29) mEq/L BUN (8-23) mg/dL Creatinine (0.60-1.20) mg/dL Est GFR ( Amer) (> 60) Est GFR (Non-Af Amer) (> 60) BUN/Creatinine Ratio (6-26) Glucose (70-105) mg/dL Calculated Osmolality (280-300) Calcium (8.6-10.3) mg/dL Troponin I (< 0.04) ng/mL B-Natriuretic Peptide (Less than 100) pg/mL Attestation Statement - Attestation Attestation: I examined this patient and my medical decision-making was reviewed with the Resident Physician. I agree with the documented findings, disposition and treatment plan as described except to the extent set forth below. Patient to the ED with a chief complaint of cough and shortness of breath. Patient has felt bad for several days. Had a cough productive of clear sputum that is now yellow. Went to urgent care and was sent here. Patient wears home O2. History of A. fib on Coumadin. On examination she does not appear in distress. Lung sounds diminished with crackles in bases. Heart is tachycardia and regular. Plan. We will control. Cardiac workup. Nebs steroids. Reevaluate. Patient improved. She still in A. fib with RVR. We will control rate. Patient will be admitted for rate control. Admitted to medicine. Chest CTA 12/03/18 13:10 IMPRESSION: Pulmonary arterial enlargement, in keeping with pulmonary hypertension. Linear filling defect within left lower lobe pulmonary arterial branch, with morphology favoring chronic embolism. Scattered mucous plugging and atelectasis. Persistent mixed density left lower lobe nodule, for which low-grade malignancy again cannot be excluded. Please refer to recent chest CT report for further discussion. Results were called by the radiology call center. D/ / Pete De Souza MD / Pete De Souza MD Interpreting Provider: Pete De Souza MD
[2018-12-03 13:48] LABS: INR 3.8
[2018-12-03 13:58] LABS: BUN/Creatinine Ratio 30 (6-26); Blood Urea Nitrogen 23 mg/dL (8-23); Calcium 10.1 mg/dL (8.6-10.3); Carbon Dioxide 41 mEq/L (23-29); Chloride 96 mEq/L (98-107); Glucose 177 mg/dL (70-105); Osmolality,Calculated 306 (280-300); Potassium 3.8 mEq/L (3.5-5.1); Sodium 144 mEq/L (136-145); Troponin I 0.03 ng/mL (< 0.04); eGFR For Non-African Americans > 60 (> 60)
[2018-12-03] MEDS ORDERED: MOM Conc 10 ML UD.LIQ PO PRN (17:35)
[2018-12-03] MEDS ORDERED: Ondansetron 4 MG/2 ML VIAL IVP PRN (17:35)
[2018-12-03] MEDS ORDERED: Naloxone 0.4 MG/ML INJ IVP PRN (17:35)
[2018-12-03] MEDS ORDERED: *HR* Promethazine 25 MG/ML VIAL IVP PRN (17:35)
[2018-12-03] MEDS ORDERED: Mag Hydrox/Al Hydrox/Simeth 30 ML UDC PO PRN (17:35)
[2018-12-03] MEDS ORDERED: Ipratropium/Albuterol Neb 3 ML IH PRN (17:41)
--- NOTE | 2018-12-03 17:46 | Internal Med History&Physical ---
Date of Encounter: 12/03/18 Time of Encounter: 17:45 Internal Medicine - H&P: HPI Admitted From: Home Plans for Post Hospital Care: Home History of present illness: Ms. Slade is a 73 year old female history of COPD wears 2 L at night and during the day as needed, atrial fibrillation on Coumadin, mitral and aortic valve replacements who presents to the ER from urgent care with shortness of breath and cough. Patient has had symptoms for approximately 5 days. She had a nonproductive cough until this morning when it became productive yellow sputum. She describes sharp left-sided chest pain. Denies any fevers or chills. No nausea or vomiting. She was seen at urgent care where she received 3 DuoNeb treatments as well as IM Solu-Medrol. Patient was referred here for further evaluation. Denies a prior history of DVT or PE. No other complaints. In the ED, her HR was noted to be high at 110-120She required 4l O2 to maintain sPO2 above 92%. labs showed INR 3.8, elevated CO2 and BNP. CTA showed pulmonary hypertension, possible chronic PE, mucus plug and a stable lung nodule. She was admitted for further evaluation and management. Pt will be full code. Past Med Surg Social Fam HX - Past Medical History Medical history: arthritis, asthma, atrial fibrillation, CHF, COPD, coronary artery disease, CVA, fibromyalgia, glaucoma, hyperlipidemia, hypertension, myocardial infarction, thyroid disease, valvular heart disease, other Additional medical history: carotid stenosis Psychiatric history: depression - Past Surgical History Surgical History: coronary bypass (CABG), heart valve replacement, orthopedic, other, other Additional surgical history: right leg ablation. orif 5th metatarsal. left upper eyelid - Social History Smoking Status: Current every day smoker Smokeless Tobacco Status: No Alcohol use: unknown Drug use: none - Family History Father Adopted: No Family Member Ethnicity: Non- Living Status: Hx Family Cardiac Disorders: Yes Hx Family Respiratory Disorders: Yes (Emphysema) Hx Family Cancer: No Hx Family GI Disorders: No Hx Family Endocrine Disorder: No Hx Family Neuromuscular Disorders: No Hx Family Neurologic Disorders: No Hx Family HEENT Disorders: No Hx Family Autoimmune Disorders: No Mother Living Status: Hx Family Neurologic Disorders: Yes (dementia) Internal Medicine - H&P: Meds Aspirin [Lo-Dose Aspirin EC] 81 mg PO DAILY 07/20/15 [History] Montelukast [Singulair] 10 mg PO HS 07/20/15 [History] Pravastatin Sodium [Pravachol] 20 mg PO HS 07/20/15 [History] clonazePAM [Klonopin] 0.5 mg PO HS PRN 08/24/16 [History] Albuterol Sulfate [Albuterol Inhaler] 2 puff IH Q4HR PRN 11/18/16 [History] Ascorbic Acid [Vitamin C] 500 mg PO DAILY 05/09/17 [History] dilTIAZem HCl [Diltiazem 24Hr Cd] 360 mg PO DAILY 05/09/17 [History] Losartan [Cozaar] 25 mg PO DAILY #90 tablet 12/28/17 [Rx] BuPROPion XL (24 HR) [Wellbutrin Xl] 150 mg PO DAILY 05/18/18 [History] Chlorthalidone 50 mg PO DAILY 05/18/18 [History] Vit A/Vit C/Vit E/Zinc/Copper [Preservision Areds Tablet] 1 each PO DAILY 05/31/18 [History] Mirabegron [Myrbetriq] 50 mg PO DAILY 08/12/18 [History] Cyanocobalamin (B-12) [Vitamin B12] 1,000 mcg PO DAILY tablet 08/13/18 [Rx] Acetaminophen [Tylenol] 1,000 mg PO Q6HR PRN 09/04/18 [History] Budesonide/Formoterol 80/4.5 [Symbicort 80/4.5] 1 puff IH BIDR 09/04/18 [History] Warfarin Sodium 5 mg PO WESA 09/05/18 [History] Warfarin Sodium 10 mg PO SUMOTUTHFR 09/05/18 [History] methIMAzole [Tapazole] 2.5 mg PO Q48H 09/05/18 [History] Metoprolol [Lopressor] 25 mg PO BID #60 tablet 09/06/18 [Rx] Allergy/AdvReac Type Severity Reaction Status Date / Time furosemide Allergy Hives Verified 12/03/18 11:00 Iodinated Contrast- Oral and Allergy Rash Verified 12/03/18 11:00 IV Dye Penicillins [PCN] Allergy anaphylacti Verified 12/03/18 11:00 c Sulfa (Sulfonamide Allergy Hives Verified 12/03/18 11:00 Antibiotics) Barbiturates AdvReac Seizure Verified 12/03/18 11:00 All Systems PM: A 10-system review of systems was performed and is negative for pertinent findings except as documented above in the HPI. Review of systems: REVIEW OF SYSTEMS: CONSTITUTIONAL: No weight loss, fever, chills, weakness or fatigue. HEENT: Eyes: No visual loss, blurred vision, double vision or yellow sclerae. Ears, Nose, Throat: No hearing loss, sneezing, congestion, runny nose or sore throat. SKIN: No rash or itching. CARDIOVASCULAR: No chest pain, chest pressure or chest discomfort. No palpitations or edema. RESPIRATORY: see HPI. GASTROINTESTINAL: No anorexia, nausea, vomiting or diarrhea. No abdominal pain or blood. GENITOURINARY: No dysuria, urgency, or frequency. NEUROLOGICAL: No headache, dizziness, syncope, paralysis, ataxia, numbness or tingling in the extremities. No change in bowel or bladder control. MUSCULOSKELETAL: No muscle, back pain, joint pain or stiffness. HEMATOLOGIC: No anemia, bleeding or bruising. LYMPHATICS: No enlarged nodes. No history of splenectomy. PSYCHIATRIC: No history of depression or anxiety. ENDOCRINOLOGIC: No reports of sweating, cold or heat intolerance. No polyuria or polydipsia. - Constitutional Vitals: Temp Pulse Resp BP Pulse Ox 98.7 F 109 22 124/84 95 12/03/18 12:53 12/03/18 16:15 12/03/18 16:15 12/03/18 16:15 12/03/18 16:15 General appearance: Present: cooperative, A&O X 3 Exam: PHYSICAL EXAMINATION: GENERAL APPEARANCE: The patient is alert, oriented and in no acute distress. HEENT: Head is normocephalic. The sinuses are nontender. Pupils are equal and reactive. The nares are patent. Oropharynx clear without lesions. NECK: Supple without lymphadenopathy. HEART: Regular rate and rhythm. LUNGS: decreased lung sound bilaterally. ABDOMEN: Soft, nontender, nondistended with good bowel sounds heard. Inguinal area is normal. EXTREMITIES: Without cyanosis, clubbing or edema. NEUROLOGICAL: Gross nonfocal. SKIN: Warm and dry without any rash. Internal Med - H&P Results - Labs CBC & Chem 7: 12/03/18 13:16 12/03/18 13:16 Labs: Short CBC 12/03/18 Range/Units 13:16 WBC 7.3 (4.3-11.1) K/mcL Hgb 14.7 (11.5-15.4) g/dL Hct 47.3 H (35.3-44.9) % Plt Count 205 (140-400) K/mcL Neutrophils # 6.0 (1.6-8.9) K/mcL BMP 12/03/18 13:16 Sodium 144 Potassium 3.8 Chloride 96 L Carbon Dioxide 41 H* BUN 23 Creatinine 0.77 Glucose 177 H Calcium 10.1 Cardiac Enzymes 12/03/18 Range/Units 13:16 Troponin I 0.03 (< 0.04) ng/mL - Impressions ITS Impressions Chest CTA 12/03/18 13:10 IMPRESSION: Pulmonary arterial enlargement, in keeping with pulmonary hypertension. Linear filling defect within left lower lobe pulmonary arterial branch, with morphology favoring chronic embolism. Scattered mucous plugging and atelectasis. Persistent mixed density left lower lobe nodule, for which low-grade malignancy again cannot be excluded. Please refer to recent chest CT report for further discussion. Results were called by the radiology call center. D/ / Pete De Souza MD / Pete De Souza MD Interpreting Provider: Pete De Souza MD - Assessment and Plan (1) Acute and chronic respiratory failure Current Visit: Yes Status: Acute Assessment and plan: COPD exacerbation with possible acute bronchitis. Continue O2, BiPAP at time and PRN. Started on IV Levaquin for possible PNA. IV steroid and bronchodilators. Control HR with cardizem gtt. Qualifiers: Respiratory failure complication: hypoxia and hypercapnia Qualified Code(s): J96.21 - Acute and chronic respiratory failure with hypoxia; J96.22 - Acute and chronic respiratory failure with hypercapnia (2) Atrial fibrillation with RVR Current Visit: Yes Status: Acute Assessment and plan: HR 110-120. Continue cardizem gtt, resume home cardizem and metoprol, adjust dose and titrate off cardizem gtt. (3) COPD exacerbation Current Visit: Yes Status: Acute Assessment and plan: Same as above. (4) Supratherapeutic INR Current Visit: No Status: Acute Assessment and plan: Hold coumadin for tonight, pharmacy to dose. (5) Coronary artery disease Current Visit: No Status: Chronic Assessment and plan: Continue tele, cycle tropo. resume home meds. Qualifiers: Coronary Disease-Associated Artery/Lesion type: [place] artery [place] vs. transplanted heart: [place] heart Associated angina: without angina Qualified Code(s): I25.10 - Atherosclerotic heart disease of [place] coronary artery without angina pectoris (6) HTN (hypertension) Current Visit: No Status: Chronic Assessment and plan: monitor BP, resume home meds. Qualifiers: Hypertension type: essential hypertension Qualified Code(s): I10 - Essential (primary) hypertension (7) Hyperthyroidism Current Visit: No Status: Chronic Assessment and plan: resume home meds. (8) DVT prophylaxis Current Visit: Yes Status: Acute Assessment and plan: On coumadin - Time Spent With Patient Total time spent is greater than 50% in coordination of care (as documented) at patient's floor/unit and/or counseling patient: Greater than 35 minutes
[2018-12-03] MEDS ORDERED: Warfarin perPT PO PRN (18:00)
[2018-12-03] MEDS ORDERED: Levofloxacin 750 MG/150 ML 750 MG/150 ML BAG IVPB SCH (19:00)
[2018-12-03] MEDS: Ipratropium/Albuterol Neb 3 ML IH SCH ×2 (21:53→23:48)
[2018-12-03] MEDS: Budesonide/Formoterol 80/4.5 MDI IH SCH (22:19)
[2018-12-04] MEDS: methylPREDNISolone 125 MG/2 ML VIAL IVP SCH ×3 (00:02→15:32)
[2018-12-04 02:39] LABS: Basophils % 0.2 %; Hematocrit 43.4 % (35.3-44.9); Hemoglobin 13.3 g/dL (11.5-15.4); Immature Granulocytes % 0.2 % (0-4); Lymphocytes # 0.4 K/mcL (0.6-4.6); Mean Corpuscular HGB Conc 30.6 g/dL (31.6-35.5); Mean Corpuscular Volume 104.3 fL (83.0-100.0); Mean Platelet Volume 12.2 fL (9.4-12.4); Monocytes # 0.2 K/mcL (0.0-1.3); Monocytes % 4.5 %; Neutrophils # 4.2 K/mcL (1.6-8.9); Platelet Count 182 K/mcL (140-400); Red Blood Count 4.16 M/mcL (3.82-4.97); Red Cell Distribution Width 13.1 % (11.5-14.5); Segmented Neutrophils % 86.1 %
[2018-12-04 02:47] LABS: INR 3.9
[2018-12-04 03:08] LABS: BUN/Creatinine Ratio 36 (6-26); Blood Urea Nitrogen 29 mg/dL (8-23); Calcium 9.5 mg/dL (8.6-10.3); Carbon Dioxide 40 mEq/L (23-29); Chloride 99 mEq/L (98-107); Glucose 210 mg/dL (70-105); Osmolality,Calculated 308 (280-300); Potassium 3.5 mEq/L (3.5-5.1); Sodium 143 mEq/L (136-145); eGFR For Non-African Americans > 60 (> 60)
[2018-12-04] MEDS: Ipratropium/Albuterol Neb 3 ML IH SCH ×6 (04:03→23:48)
[2018-12-04] MEDS: Budesonide/Formoterol 80/4.5 MDI IH SCH ×2 (07:42→19:40)
[2018-12-04 08:30] LABS: ABG Base Excess 13 mEq/L (-2 to 3); ABG HCO3 41 mEq/L (21-27); ABG Oxygen Saturation 90 % (95-98); ABG PCO2 68 mmHg (35-45); ABG PH 7.39 pH Units (7.32-7.45); ABG PO2 63 mmHg (85-104); ABG TCO2 43 mEq/L (20-26)
[2018-12-04] MEDS: Diltiazem CD (24hr) 180 MG CAPSULE PO SCH (09:34)
[2018-12-04] MEDS ORDERED: *HR* Digoxin 0.5 MG/2 ML AMPUL IVP SCH (12:00)
--- NOTE | 2018-12-04 12:08 | Internal Med Progress Note ---
Hospitalist Progress Note - Encounter Date of Encounter: 12/04/18 Time of Encounter: 12:04 - Exam Vitals: Temp Pulse Resp BP Pulse Ox 98.0 F 90 16 121/69 94 12/04/18 07:25 12/04/18 11:56 12/04/18 11:56 12/04/18 10:40 12/04/18 10:40 Exam: PHYSICAL EXAMINATION: GENERAL APPEARANCE: The patient is alert, oriented and in no acute distress. HEENT: Head is normocephalic. The sinuses are nontender. Pupils are equal and reactive. The nares are patent. Oropharynx clear without lesions. NECK: Supple without lymphadenopathy. HEART: Regular rate and rhythm. LUNGS: decreased lung sound bilaterally. ABDOMEN: Soft, nontender, nondistended with good bowel sounds heard. Inguinal area is normal. EXTREMITIES: Without cyanosis, clubbing or edema. NEUROLOGICAL: Gross nonfocal. SKIN: Warm and dry without any rash. - Summary of Assessment and Plan Summary of Assessment and Plan: (1) Acute and chronic respiratory failure from COPDE likely due to long stnading smoking history will cont solumedrol 60 Q8 on inhaled stoerid and duoneb as well (2) Atrial fibrillation with RVR Pt has difficult control Afib, going to get albation from [facility] We will add dig, try to wean down the cradizem, if unsuccessful will have to try amio For now go up on beta ros and add dig for now. (3) COPD exacerbation Current Visit: Yes Status: Acute Assessment and plan: Same as above. (4) Supratherapeutic INR talked to the pt about INR. (5) Coronary artery disease Current Visit: No Status: Chronic Assessment and plan: Continue tele, cycle tropo. resume home meds. Qualifiers: Coronary Disease-Associated Artery/Lesion type: [place] artery [place] vs. transplanted heart: [place] heart Associated angina: without angina Qualified Code(s): I25.10 - Atherosclerotic heart disease of [place] coronary artery without angina pectoris (6) HTN (hypertension) Current Visit: No Status: Chronic Assessment and plan: monitor BP, resume home meds. Qualifiers: Hypertension type: essential hypertension Qualified Code(s): I10 - Essential (primary) hypertension (7) dispo: await further improvement, pt warrants in pt treatment. Time: 35min - Time Spent with Patient Total time spent is greater than 50% in coordination of care (as documented) at patient's floor/unit and/or counseling patient: Internal Medicine: Result - Labs CBC & Chem 7: 12/04/18 02:18 12/04/18 02:18 Labs: Short CBC 12/03/18 12/04/18 Range/Units 13:16 02:18 WBC 7.3 4.9 (4.3-11.1) K/mcL Hgb 14.7 13.3 (11.5-15.4) g/dL Hct 47.3 H 43.4 (35.3-44.9) % Plt Count 205 182 (140-400) K/mcL Neutrophils # 6.0 4.2 (1.6-8.9) K/mcL BMP 12/03/18 12/04/18 13:16 02:18 Sodium 144 143 Potassium 3.8 3.5 Chloride 96 L 99 Carbon Dioxide 41 H* 40 H* BUN 23 29 H Creatinine 0.77 0.80 Glucose 177 H 210 H Calcium 10.1 9.5 Cardiac Enzymes 12/03/18 12/03/18 12/04/18 Range/Units 13:16 18:18 02:18 Troponin I 0.03 0.03 < 0.03 (< 0.04) ng/mL 12/04/18 Range/Units 08:44 Troponin I 0.03 (< 0.04) ng/mL - ABG Interpretation ABG results: ABG ABG pH 7.39 pH Units (7.32-7.45) 12/04/18 08:27 ABG pCO2 68 mmHg (35-45) H 12/04/18 08:27 ABG pO2 63 mmHg (85-104) L 12/04/18 08:27 ABG O2 Saturation 90 % (95-98) L 12/04/18 08:27 PT/INR, D-dimer PT 44.0 Seconds (9.4-12.1) H* 12/04/18 02:18 - Impressions Impressions Chest CTA 12/03/18 13:10 IMPRESSION: Pulmonary arterial enlargement, in keeping with pulmonary hypertension. Linear filling defect within left lower lobe pulmonary arterial branch, with morphology favoring chronic embolism. Scattered mucous plugging and atelectasis. Persistent mixed density left lower lobe nodule, for which low-grade malignancy again cannot be excluded. Please refer to recent chest CT report for further discussion. Results were called by the radiology call center. D/ / Pete De Souza MD / Pete De Souza MD Interpreting Provider: Pete De Souza MD Consult Discharge Plan - Plan Referrals: Desmond Howe MD [Primary Care Provider] -
--- NOTE | 2018-12-04 17:53 | Electrocardiograph Report ---
[address] [address] Test Date: 2018-12-03 Pat Name: Betina Slade Department: [id number] Room: 2NE35 Gender: F Butcher Fish: : 1945 Requested By: Heriberto Sanderson Order Number: [id number] Reading MD: Sandra Johnson Measurements Intervals [place] Rate: 114 P: LA: QRS: -18 QRSD: 92 T: 115 QT: 327 QTc: 451 Interpretive Statements Atrial fibrillation Abnormal R-wave progression, late transition LVH with secondary repolarization abnormality Electronically Signed On 12-04-2018 17:51:25 EDT by Sandra Johnson
[2018-12-04] MEDS ORDERED: Melatonin 3 MG TABLET PO PRN (20:12)
[2018-12-05] MEDS: methylPREDNISolone 125 MG/2 ML VIAL IVP SCH ×3 (00:07→16:08)
[2018-12-05] MEDS: Ipratropium/Albuterol Neb 3 ML IH SCH ×6 (04:21→23:47)
[2018-12-05] MEDS: Budesonide/Formoterol 80/4.5 MDI IH SCH ×2 (07:51→19:56)
[2018-12-05 08:19] LABS: INR 1.8; Prothrombin Time 20.2 Seconds (9.4-12.1)
[2018-12-05] MEDS ORDERED: *HR* Warfarin 10 MG TABLET PO ONE ×2 (08:33→18:00)
[2018-12-05] MEDS: Diltiazem CD (24hr) 180 MG CAPSULE PO SCH (09:48)
--- NOTE | 2018-12-05 14:08 | Cardiology Consult Note ---
<Kike Bah R - Last Filed: 12/05/18 14:50> Date of Encounter: 12/05/18 Time of Encounter: 14:04 Assessment and Plan (1) Atrial fibrillation Current Visit: No Status: Chronic Known hx of A-Fib. Presented RVR in setting of acute on chronic respiratory failure. Home meds included Cardizem CD 360mg daily and Lopressor 25mg BID. Lopressor was increased by primary team to 75mg BID. HR 80s at bedside. 12 hr tele AVG HR 95. Rate controlled. In the past, BB has been decreased d/t fatigue. Pt was seen and evaluated by Dr. Serafin Astudillo and ablation/PPM insertion were discussed. She declined at that time. Was also seen by [facility] by EP, Dr. Og, to discuss antiarrhythmics. She states she has an appointment at [facility] Monday, but is unsure why. Anticoagulated on Coumadin for A-Fib and mechanical aortic and mitral valves. INR 1.8 today. On Lovenox bridging currently. Given her mechanical aortic and mitral valves, recommend heparin gtt for bridging until INR is 2.5. Goal 2.5- 3.5. Anticipate sign off once seen and evaluated by Dr. Johnson. Will coordinate outpt follow-up. Qualifiers: Atrial fibrillation type: chronic Qualified Code(s): I48.2 - Chronic atrial fibrillation (2) Coronary artery disease Current Visit: No Status: Chronic Hx of 1V CABG, SVG-D1 in 1995. Continue ASA, Statin, BB. Negative nuclear stress test 09/2018. Qualifiers: Coronary Disease-Associated Artery/Lesion type: [place] artery [place] vs. transplanted heart: [place] heart Associated angina: without angina Qualified Code(s): I25.10 - Atherosclerotic heart disease of [place] coronary artery without angina pectoris (3) Mechanical heart valve present Current Visit: No Status: Acute Hx of mechanical mitral and aortic valve replacements. Anticoagulated on Coumadin. Goal INR 2.5-3.5. INR 1.8 today. On therapeutic Lovenox. Given her mechanical aortic and mitral valves, recommend heparin gtt for bridging until INR is 2.5. (4) Severe tricuspid regurgitation Current Visit: Yes Status: Acute Severe TR. Seen by Dr. Reilly at [facility] 09/2018 to consider MitraClip for TR. She declined. Currently euvolemic on exam. Discussion w patient/family: The assessment and plan as outlined above was discussed with the patient and/or family members who expressed understanding and agreement. All questions were answered. Thank you for involving us in the care of your patient. Please call with any questions. I will discuss all the above with Dr. Johnson and make changes as necessary. History of Present Illness Consult date: 12/05/18 Consult reason: A-Fib Chief complaint: dyspnea History of present illness: Ms. Slade is a 73 year old female with PMH of COPD wears 2 L at night and during the day as needed, atrial fibrillation on Coumadin, mechanical mitral and aortic valve replacements, CAD s/p 1V CABG SVG-D1 in 1995 who presents to the ER from urgent care with shortness of breath and cough. Patient has had symptoms for approximately 5 days. She had a nonproductive cough, then it became productive yellow sputum. In the ED, her HR was noted to be high at 110-120. She required 4l O2 to maintain sPO2 above 92%. labs showed INR 3.8, elevated CO2 and BNP. CTA showed pulmonary hypertension, possible chronic PE, mucus plug and a stable lung nodule. She was admitted for further evaluation and management. Cardiology consulted for further recs. Prior CV testing: Nuclear stress test 09/2018: Gated EF 63%. Perfusion imaging negative for ischemia or infarct. TTE 12/2017: LVEF 55%. Mild cLVH. Moderately dilated RV with mild reduction in function. Mechanical aortic valve not well visualized. There is dense non- mobile tissue along the plane of the aortic valve within the suture line (seen on PSAX imaging) probably representing pannus formation. No prosthetic aortic stenosis/obstruction by Doppler parameters. Mechanical mitral valve is not well visualized. No prosthetic mitral stenosis by Doppler parameters. Moderate-sever e tricuspid regurgitation. Mild pulmonic regurgitation. Mild pulmonary hypertension. Past Med Surg Social Fam HX - Past Medical History Medical history: arthritis, asthma, atrial fibrillation, CHF, COPD, coronary artery disease, CVA, fibromyalgia, glaucoma, hyperlipidemia, hypertension, myocardial infarction, thyroid disease, valvular heart disease, other Additional medical history: carotid stenosis Psychiatric history: depression - Past Surgical History Surgical History: coronary bypass (CABG), heart valve replacement, orthopedic, other, other Additional surgical history: right leg ablation. orif 5th metatarsal. left upper eyelid - Social History Smoking Status: Current every day smoker Smokeless Tobacco Status: No Alcohol use: unknown Drug use: none - Family History Father Adopted: No Family Member Ethnicity: Non- Living Status: Age at : 80 Cause of : heart attack Hx Family Cardiac Disorders: Yes Hx Family Respiratory Disorders: Yes (Emphysema) Hx Family Cancer: No Hx Family GI Disorders: No Hx Family Endocrine Disorder: No Hx Family Neuromuscular Disorders: No Hx Family Neurologic Disorders: No Hx Family HEENT Disorders: No Hx Family Autoimmune Disorders: No Mother Living Status: Age at : 80 Cause of : unknown Hx Family Cancer: No Hx Family GI Disorders: Yes Hx Family Neurologic Disorders: Yes (dementia) Medications and Allergies Aspirin [Lo-Dose Aspirin EC] 81 mg PO DAILY 07/20/15 [History] Montelukast [Singulair] 10 mg PO HS 07/20/15 [History] Pravastatin Sodium [Pravachol] 20 mg PO HS 07/20/15 [History] clonazePAM [Klonopin] 0.5 mg PO HS PRN 08/24/16 [History] Albuterol Sulfate [Albuterol Inhaler] 2 puff IH Q4HR PRN 11/18/16 [History] Ascorbic Acid [Vitamin C] 500 mg PO DAILY 05/09/17 [History] dilTIAZem HCl [Diltiazem 24Hr Cd] 360 mg PO DAILY 05/09/17 [History] Losartan [Cozaar] 25 mg PO DAILY #90 tablet 12/28/17 [Rx] BuPROPion XL (24 HR) [Wellbutrin Xl] 150 mg PO QAM 05/18/18 [History] Chlorthalidone 50 mg PO DAILY 05/18/18 [History] Vit A/Vit C/Vit E/Zinc/Copper [Preservision Areds Tablet] 1 each PO DAILY 05/31/18 [History] Mirabegron [Myrbetriq] 50 mg PO DAILY 08/12/18 [History] Cyanocobalamin (B-12) [Vitamin B12] 1,000 mcg PO DAILY tablet 08/13/18 [Rx] Budesonide/Formoterol 80/4.5 [Symbicort 80/4.5] 2 puff IH BIDR 09/04/18 [Hi story] Warfarin Sodium 5 mg PO WESA 09/05/18 [History] Warfarin Sodium 10 mg PO SUMOTUTHFR 09/05/18 [History] Metoprolol [Lopressor] 25 mg PO BID #60 tablet 09/06/18 [Rx] 3 Allergy/AdvReac Type Severity Reaction Status Date / Time furosemide Allergy Hives Verified 12/03/18 11:00 Iodinated Contrast- Oral and Allergy Rash Verified 12/03/18 11:00 IV Dye Penicillins [PCN] Allergy anaphylacti Verified 12/03/18 11:00 c Sulfa (Sulfonamide Allergy Hives Verified 12/03/18 11:00 Antibiotics) Barbiturates AdvReac Seizure Verified 12/03/18 11:00 All Systems Review: The remainder of the systems were reviewed and are negative - Cardiovascular Cardiovascular: as per HPI, chest pain at rest, dyspnea at rest - Respiratory Respiratory: dyspnea Physical Examination Vital Signs, Last 4 Hours Temp Pulse Resp BP Pulse Ox 12/05/18 11:28 98.5 F 97 16 123/75 92 Vital Signs Temp Pulse Resp BP Pulse Ox 12/05/18 11:28 98.5 F 97 16 123/75 92 12/05/18 07:51 18 93 12/05/18 06:55 97.7 F 92 18 106/66 90 12/05/18 04:21 16 93 12/05/18 04:00 97.9 F 87 14 110/60 92 12/05/18 01:00 98.5 F 93 14 113/70 96 12/04/18 23:48 16 93 12/04/18 21:23 90 12/04/18 20:00 98.5 F 107 16 113/66 92 12/04/18 19:41 16 93 12/04/18 16:00 98.0 F 101 14 124/73 94 Intake and Output 12/04/18 12/05/18 12/05/18 23:59 07:59 15:59 Intake Total 120 / 120 0 / 0 480 / 480 Output Total 375 / 375 100 / 100 Balance -255 / -255 -100 / -100 480 / 480 Intake: IV Fluids 0 / 0 Oral 120 / 120 0 / 0 480 / 480 Output: Urine 375 / 375 100 / 100 Other: Meal Breakfast Percent of Meal Consumed 50% Stool Size Moderate Stool Consistency formed Stool Color Brown # Bowel Movements 1 Weight 56 kg Patient Weight 12/05/18 23:59 Weight 56 kg General: Conversant, No Apparent Distress HEENT: Atraumatic, Normocephaly, Mucus Membranes Moist Neck: No JVD, Normal carotid pulses Cardiac: Other (irregularly irregular, click noted) Lungs: Other (mild wheezes, diminished) Neuro: Alert and responsive, No focal deficits noted Abdomen: Soft, Non-Tender Skin: No rashes noted on visualized skin Musculoskeletal: No Chest Wall Tenderness Extremities: No Clubbing, No Cyanosis, No Edema, Normal Pulses Results 12/04/18 02:18 12/04/18 02:18 Lab Results 12/05/18 07:48 INR 1.8 D Active Medications Al Hydrox/Mg Hydrox/Simethicone (Maalox) 15 ml PO Q6HR PRN PRN Reason: Dyspepsia Stop: 06/04/19 17:36 Albuterol/Ipratropium (Duoneb) 3 ml IH [id number] PRN PRN Reason: Shortness Of Breath/Wheezing Stop: 06/04/19 17:42 Albuterol/Ipratropium (Duoneb) 3 ml IH [id number] ENZO Stop: 06/04/19 20:01 Last Admin: 12/05/18 11:40 Dose: Not Given Budesonide/Formoterol Fumarate (Symbicort) 2 puff IH BIDR [facility]; Protocol Stop: 06/04/19 22:01 Last Admin: 12/05/18 07:51 Dose: 2 puff Diltiazem HCl (Cardizem Cd) 360 mg PO DAILY [facility] Stop: 06/05/19 09:01 Last Admin: 12/05/18 09:48 Dose: 360 mg Enoxaparin Sodium (Lovenox) 60 mg 1 mg/kg (60 mg) SQ Q12HR [facility]; Protocol Stop: 06/06/19 18:01 Guaifenesin (Mucinex) 600 mg PO BID [facility] Stop: 06/04/19 21:01 Last Admin: 12/05/18 09:48 Dose: 600 mg Levofloxacin/Dextrose (Levaquin Premix 750mg/150 Ml) 750 mg in 150 mls @ 100 mls/hr IVPB Q24H [facility]; Protocol Stop: 06/04/19 19:01 Magnesium Hydroxide (Milk Of Magnesia Conc) 10 ml PO DAILY PRN PRN Reason: Constipation Stop: 06/04/19 17:36 Melatonin (Melatonin) 3 mg PO HS PRN PRN Reason: Insomnia Stop: 06/05/19 20:13 Last Admin: 12/04/18 21:12 Dose: 3 mg Methylprednisolone (Solu-Medrol) 60 mg IVP Q8HR [facility] Stop: 06/05/19 00:01 Last Admin: 12/05/18 09:49 Dose: 60 mg Metoprolol Tartrate (Lopressor) 25 mg PO BID [facility] Stop: 06/04/19 21:01 Last Admin: 12/05/18 09:57 Dose: 25 mg Metoprolol Tartrate (Lopressor) 50 mg PO BID [facility] Stop: 06/05/19 21:01 Last Admin: 12/05/18 09:48 Dose: 50 mg Naloxone HCl (Narcan) 0.4 mg IVP Q2M PRN PRN Reason: SEE COMMENTS Stop: 06/04/19 17:36 Ondansetron HCl (Zofran) 4 mg IVP Q8HR PRN PRN Reason: Nausea And Vomiting Stop: 06/04/19 17:36 Promethazine HCl (Phenergan) 12.5 mg IVP Q6HR PRN PRN Reason: Nausea And Vomiting Stop: 06/04/19 17:36 Warfarin Sodium (Coumadin Perpt) 1 each PO DAILY@1800 PRN PRN Reason: SEE COMMENTS Stop: 06/04/19 18:01 Warfarin Sodium (Coumadin) 10 mg PO 1800 ONE Stop: 12/05/18 18:01 - Imaging and Cardiology Stress Test: report reviewed Echo: report reviewed - EKG Interpretation EKG results cardiology: other (12 hr tele AVG HR 95, A-Fib) Consult Discharge Plan - Plan Referrals: Desmond Howe MD [Primary Care Provider] - <Sandra Johnson - Last Filed: 12/05/18 16:56> Date of Encounter: 12/05/18 - Attending Attestation I examined this patient and my medical decision-making was reviewed with the GOVERNMENT EMPLOYEE. I agree with the documented findings, disposition and treatment plan as described. Ms. Slade is well known to me from the outpatient setting. Presents now with SOB most consistent with COPD exacerbation based on CT and exam findings. Patient is feeling better today, sitting up on side of bed reading when entering the room. Heart rates are better controlled. Complicating her presentation are CT findings suggesting but not confirming a filling defect in the pulmonary arteries. Spoke with primary team. Hematology has been consulted. Patient does not have a good alternative to coumadin for retirement anticoagulation. She has 2 mechanical valves, in the mitral and aortic positions. Her goal INR is 2.5 to 3.5. We have started her back on UFH, current INR is 1.8. Of note, she has an upcoming elective hospital admission to [facility] on December 11 for Tikosyn loading and mitraclip of her tricuspid valve. Will speak with Dr. Jaswant Reilly at [facility] for coordination of care and anticoagulation recommendations given the upcoming procedure. Further recommendations to follow. Assessment and Plan Discussion w patient/family: The assessment and plan as outlined above was discussed with the patient and/or family members who expressed understanding and agreement. All questions were answered. Thank you for involving us in the care of your patient. Please call with any questions. History of Present Illness History of present illness: Ms. Slade is a 73 year old female All Systems Review: The remainder of the systems were reviewed and are negative Physical Examination Vital Signs, Last 4 Hours Pulse Resp BP Pulse Ox 12/05/18 15:27 94 16 109/68 96 Results 12/05/18 14:52 12/04/18 02:18 Lab Results 12/05/18 12/05/18 12/05/18 07:48 14:52 14:52 WBC 17.0 H D Hgb 13.7 Hct 44.2 Plt Count 234 INR 1.8 D 1.5
[2018-12-05] MEDS ORDERED: *HR* Heparin 5,000 UNIT/ML VIAL IVP PRN ×2 (14:43)
[2018-12-05] MEDS ORDERED: *HR* Heparin 5,000 UNIT/ML VIAL IVP ONE (14:43)
[2018-12-05] MEDS ORDERED: Heparin 25,000 UNIT/250 ML D5W 25,000 UNIT/250 ML IV.SOLN IVC SCH (14:45)
[2018-12-05 15:12] LABS: Hematocrit 44.2 % (35.3-44.9); Hemoglobin 13.7 g/dL (11.5-15.4); Mean Corpuscular Hemoglobin 32.5 pg (28.0-33.3); Mean Platelet Volume 11.9 fL (9.4-12.4); Platelet Count 234 K/mcL (140-400); Red Blood Count 4.21 M/mcL (3.82-4.97); Red Cell Distribution Width 13.5 % (11.5-14.5)
[2018-12-05 15:23] LABS: INR 1.5; Prothrombin Time 17.2 Seconds (9.4-12.1)
[2018-12-05] MEDS ORDERED: Isovue-370 500 ML BOTTLE IVP ONE (16:01)
[2018-12-05] MEDS: Levofloxacin 750 MG/150 ML 750 MG/150 ML BAG IVPB SCH (16:07)
--- NOTE | 2018-12-05 17:23 | Oncology Inp Progress Note ---
Date of Encounter: 12/05/18 Oncology: Obj Data - Labs CBC & Chem 7: 12/05/18 14:52 12/04/18 02:18 Consult Discharge Plan - Plan Referrals: Desmond Howe MD [Primary Care Provider] -
[2018-12-05] MEDS ORDERED: *HR* Warfarin 5 MG TABLET PO ONE (18:00)
[2018-12-05] MEDS ORDERED: *HR* Enoxaparin 60 MG/0.6 ML SYRINGE SQ SCH (18:00)
--- NOTE | 2018-12-05 21:18 | Oncology Inp Consult Note ---
<Em Frederick L - Last Filed: 12/05/18 21:35> Date of Encounter: 12/05/18 Time of Encounter: 17:30 Assessment and Plan (1) Chronic pulmonary embolism Status: Acute Assessment and plan: CTA reveals pulmonary arterial enlargement, in keeping with pulmonary hypertension. Linear filling defect within left lower lobe pulmonary arterial branch, with morphology favoring chronic embolism. Presented therapeutic on coumadin with mechanical mitral and aortic valve replacements Plan: Given chronicity of findings, would suggest no changes in coumadin dosing. Continue coumadin with goal INR 2.5-3.5 One could consider that it would be reasonable to prefer goal INR to be on the high end of her goal range (i.e from 3.0-3.5) Qualifiers: Qualified Code(s): I27.82 - Chronic pulmonary embolism (2) History of heart valve replacement Status: Chronic Assessment and plan: Cardiology following INR today 1.8, on heparin bridge with coumadin until therapeutic (3) Nodule of lower lobe of left lung Status: Acute Assessment and plan: CTA reveals 1.2 x 1.1 cm nodule is demonstrated within the left lower lobe with dense central nidus, not markedly changed from prior when measured in a similar fashion. In reviewing imaging this as been present since at least 2013. Prior PET scan April 2017 did not show any significant uptake This has slowly enlarged on comparison from prior imaging and likely represents a very low grade lung malignancy Plan: Discussed options for biopsy of nodule/discussion with radiation for treatment with radiotherapy vs. PET scan vs. imaging surveillance in about 6 months time with patient/patients daughter at bedside Patient has elected for imaging surveillance and declines biopsy at this time She is an already established patient with Dr. Varghese and patient of lung screening program She prefers to continue to follow up with pulmonology for surveillance, we will add patient on for tumor board discussion in about 2 weeks time to update Dr. Varghese Otherwise, oncology will plan to sign off at this time - Data of Consult Requesting Physician: Ilia Dent Primary Care Provider: Desmond Howe MD - Consult Narrative Reason for consult: Chronic PE on coumadin, LLL nodule History of present illness: Ms. Slade is a 73 year old female with past medical history significant for COPD, atrial fibrillation, mitral and aortic valve replacements on coumadin. She initially presented to [facility] with report of progressively worsening SOB and was transferred to [facility] for further management of her suspected COPD exacerbation. In the ER she was noted to have tachycardia with HR 110-120, she required 4L O2 to maintain sPO2 above 92%. labs showed INR 3.8, elevated CO2 and BNP. CTA showed pulmonary hypertension, possible chronic PE, mucus plug and persistent mixed density left lower lobe nodule, for which is concerning for low-grade malignancy. Past Med Surg Social Fam HX - Past Medical History Medical history: arthritis, asthma, atrial fibrillation, CHF, COPD, coronary artery disease, CVA, fibromyalgia, glaucoma, hyperlipidemia, hypertension, myocardial infarction, thyroid disease, valvular heart disease, other Additional medical history: carotid stenosis Psychiatric history: depression - Past Surgical History Surgical History: coronary bypass (CABG), heart valve replacement, orthopedic, other, other Additional surgical history: right leg ablation. orif 5th metatarsal. left upper eyelid - Social History Smoking Status: Current every day smoker Smokeless Tobacco Status: No Alcohol use: unknown Drug use: none - Family History Father Adopted: No Family Member Ethnicity: Non- Living Status: Age at : 80 Cause of : heart attack Hx Family Cardiac Disorders: Yes Hx Family Respiratory Disorders: Yes (Emphysema) Hx Family Cancer: No Hx Family GI Disorders: No Hx Family Endocrine Disorder: No Hx Family Neuromuscular Disorders: No Hx Family Neurologic Disorders: No Hx Family HEENT Disorders: No Hx Family Autoimmune Disorders: No Mother Living Status: Age at : 80 Cause of : unknown Hx Family Cancer: No Hx Family GI Disorders: Yes Hx Family Neurologic Disorders: Yes (dementia) Medications and Allergies RX: Aspirin [Lo-Dose Aspirin EC] 81 mg PO DAILY 07/20/15 [History] RX: Montelukast [Singulair] 10 mg PO HS 07/20/15 [History] RX: Pravastatin Sodium [Pravachol] 20 mg PO HS 07/20/15 [History] RX: clonazePAM [Klonopin] 0.5 mg PO HS PRN 08/24/16 [History] RX: Albuterol Sulfate [Albuterol Inhaler] 2 puff IH Q4HR PRN 11/18/16 [History] RX: Ascorbic Acid [Vitamin C] 500 mg PO DAILY 05/09/17 [History] RX: dilTIAZem HCl [Diltiazem 24Hr Cd] 360 mg PO DAILY 05/09/17 [History] RX: Losartan [Cozaar] 25 mg PO DAILY #90 tablet 12/28/17 [Rx] RX: BuPROPion XL (24 HR) [Wellbutrin Xl] 150 mg PO QAM 05/18/18 [History] RX: Chlorthalidone 50 mg PO DAILY 05/18/18 [History] RX: Vit A/Vit C/Vit E/Zinc/Copper [Preservision Areds Tablet] 1 each PO DAILY 05/31/18 [History] RX: Mirabegron [Myrbetriq] 50 mg PO DAILY 08/12/18 [History] RX: Cyanocobalamin (B-12) [Vitamin B12] 1,000 mcg PO DAILY tablet 08/13/18 [Rx] RX: Budesonide/Formoterol 80/4.5 [Symbicort 80/4.5] 2 puff IH BIDR 09/04/18 [History] RX: Warfarin Sodium 5 mg PO WESA 09/05/18 [History] RX: Warfarin Sodium 10 mg PO SUMOTUTHFR 09/05/18 [History] RX: Metoprolol [Lopressor] 25 mg PO BID #60 tablet 09/06/18 [Rx] Allergy/AdvReac Type Severity Reaction Status Date / Time furosemide Allergy Hives Verified 12/03/18 11:00 Iodinated Contrast- Oral and Allergy Rash Verified 12/03/18 11:00 IV Dye Penicillins [PCN] Allergy anaphylacti Verified 12/03/18 11:00 c Sulfa (Sulfonamide Allergy Hives Verified 12/03/18 11:00 Antibiotics) Barbiturates AdvReac Seizure Verified 12/03/18 11:00 Constitutional: Present: fatigue, weakness. Absent: anorexia, chills, fever(s), night sweats, weight loss Eyes: Absent: change in vision Nose, mouth and throat: Absent: dysphagia, odynophagia Cardiovascular: Present: irregular heart rhythm, rapid heart rate. Absent: chest pain Respiratory: Present: cough, dyspnea on exertion. Absent: hemoptysis Gastrointestinal: Absent: abdominal pain, nausea, vomiting Genitourinary: Absent: dysuria Musculoskeletal: Present: muscle weakness Integumentary: Absent: rash, wounds Neurological: Absent: focal weakness, frequent falls Psychiatric: Present: as per HPI Endocrine: Present: as per HPI Hematologic/Lymphatic: Present: as per HPI Oncology - Exam - Constitutional General appearance: cooperative, no acute distress, no febrile - Head Head exam: Present: atraumatic - ENT ENT exam: Present: mucous membranes moist, normal oropharynx - Respiratory Respiratory exam: Present: decreased breath sounds. Absent: respiratory distress - Cardiovascular Cardiovascular exam: Present: irregular rhythm - GI/Abdominal GI/Abdominal exam: Present: normal bowel sounds, soft. Absent: tenderness - Extremities Exam Extremities exam: Present: normal inspection. Absent: calf tenderness - Neurological Exam Neurological exam: Present: alert, oriented X3, no focal deficits, strengths equal and symetr throughout - Psychiatric Psychiatric exam: Present: normal affect, normal mood - Skin Skin exam: Present: dry, normal color, warm Consult Discharge Plan - Plan Referrals: Desmond Howe MD [Primary Care Provider] - Inpatient Charges Provider: Dr. Barbara Peterson <Dioni Peterson - Last Filed: 12/05/18 22:15> Date of Encounter: 12/05/18 - Data of Consult Requesting Physician: Ilia Dent Primary Care Provider: Desmond Howe MD - Attending Attestation I have seen and examined Ms. Slade and agree with the assessment and plan put in place by Ms. frederick. Ms. Slade is a very pleasant woman who presents for COPD exacerbation likely secondary to bacterial bronchitis. In addition, she found to have atrial fibrillation area patient has known chronic atrial fibrillation as well as mechanical aortic as well as mitral valve replacement for which she is on Coumadin. CT imaging of the chest 12/03/2018 revealed a linear filling defect of the left lower lobe likely consistent with a chronic pulmonary embolism. There was concern this occurred while on Coumadin. In addition, she has persistence of left lower lobe lung nodule which has been present since at least 2013 has increased minimally in size. This was previously evaluated with PET/CT imaging in 2017 which showed no uptake. This is chronic process and is being monitored by pulmonary with imaging about every 6 months. Regarding the possible embolism, characteristics fit most with a chronic process. As Lovenox has inferior outcomes in those with mechanical aortic and mitral valves, my recommendations maintain Coumadin 2.5-3.5 (preferably 3.0-3.5). For her left lower lobe lung nodule, I reviewed imaging dating back to 2013. Has newly increased size. 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 The patient has establish care with pulmonology. We discussed that we could pursue biopsy. However, these often times bleed, and light of anticoagulation, I voice concern with pursuing this procedure. In addition, the patient does not wish to pursue biopsy. We discussed pursuing stereotactic radiosurgery empirically. The last option is to monitor this every [address] scan which is the patient's preference. 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 If this does progress, I would have her meet with radiation oncology to discuss stereotactic radiosurgery or with thoracic surgery for wedge resection/lobectomy. I do not think any intervention is indicated at this time. We will otherwise sign off. Inpatient Charges Provider: Dr. Barbara Peterson Consult - Inpatient Medicare Only: [id number]
[2018-12-06] MEDS: methylPREDNISolone 125 MG/2 ML VIAL IVP SCH ×2 (00:24→09:31)
[2018-12-06] MEDS: Ipratropium/Albuterol Neb 3 ML IH SCH ×5 (04:25→19:45)
[2018-12-06 05:00] LABS: INR 1.5; Prothrombin Time 16.8 Seconds (9.4-12.1)
[2018-12-06] MEDS: Budesonide/Formoterol 80/4.5 MDI IH SCH ×2 (07:49→19:45)
[2018-12-06] MEDS: Diltiazem CD (24hr) 180 MG CAPSULE PO SCH (09:31)
--- NOTE | 2018-12-06 09:40 | Cardiology Progress Note ---
Addendum entered and electronically signed by Sandra Johnson DO 12/06/18 12:12: I examined this patient and my medical decision-making was reviewed with the CN P. I agree with the documented findings, disposition and treatment plan as described. Betina appears tired today and is requiring supplemental O2 RTC which is unusal for her. On exam, lung sounds demonstrate poor air entry and wheezing. Neck veins are distended. No fluid reported on CT chest imaging. Recommend one dose of IV lasix. Encouraged ambulation with assistance, incentive spirometry and NEB treatments. I spoke with Dr. Reilly yesterday from [facility]. Plan was to admit her to [facility] on Monday for Tikosyn loading and then do mitraclip of TV on Monday. INR will have to be subtherapeutic for the procedure. Discussed anticoagulation with Dr. Reilly given her complex medical history. Since there's a short time between potential [place] discharge and [place] admission, he suggested therapeutic lovenox as well as aspirin. They can make further recommendations when she is admitted. Transfer was discussed but not recommended at this time. Original Note: Date of Encounter: 12/06/18 Time of Encounter: 09:37 Assessment and Plan (1) Severe tricuspid regurgitation Current Visit: Yes Status: Acute Severe TR. Seen by Dr. Reilly at [place] 09/2018 to discuss MitraClip for TR. She is scheduled for admission at [facility] 12/11/18 for torsten clip and antiarrhythmic therapy. Dr. Johnson called and discussed POC with Dr. Reilly. She is recommended to proceed as planned in out-pt setting. SHe was also recommended to hold coumadin and use therapeutic lovenox bridge with asa. Coumadin and heparin gtt discontinued. Start lovenox 60 mg SQ BID and asa 325 mg daily. Patient previously given lovenox SQ at home and agrees with plan. She will be called at home 12/11/18 for directions for admission to [facility]. Cardiology will sign off. (2) Atrial fibrillation Current Visit: No Status: Chronic Known hx of A-Fib. Presented RVR in setting of acute on chronic respiratory failure. Home meds included Cardizem CD 360mg daily and Lopressor 25mg BID. Lopressor was increased by primary team to 75mg BID. HR 80- 100 at bedside. 12 hr tele AVG HR 91. Rate controlled. In the past, BB has been decreased d/t fatigue. Discussed with patient, she agrees to continue medication with plan for tikosyn therapy to be initiated at [facility] 12/11/18. Anticoagulated on Coumadin for A-Fib and mechanical aortic and mitral valves. See plan above, planning for torsten clip. 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 Qualifiers: Atrial fibrillation type: chronic Qualified Code(s): I48.2 - Chronic atrial fibrillation (3) Coronary artery disease Current Visit: No Status: Chronic Hx of 1V CABG, SVG-D1 in 1995. Continue ASA, Statin, BB. Negative nuclear stress test 09/2018. Denies chest pain. Qualifiers: Coronary Disease-Associated Artery/Lesion type: [place] artery [place] vs. tr ansplanted heart: [place] heart Associated angina: without angina Qualified Code(s): I25.10 - Atherosclerotic heart disease of [place] coronary artery without angina pectoris (4) Mechanical heart valve present Current Visit: No Status: Acute Hx of mechanical mitral and aortic valve replacements. On coumadin with goal INR 2.5-3.5. Hold coumadin as discussed above and start lovenox 60 mg SQ BID and asa daily for bridge therapy prior to planned procedure. Discussion w patient/family: The assessment and plan as outlined above was discussed with the patient and/or family members who expressed understanding and agreement. All questions were answered. Thank you for involving us in the care of your patient. Please call with any questions. Subjective Principal diagnosis: afib, valvular heart disease Interval history: Ms. Slade is sitting on the side of her bed. C/o moist cough and having trouble coughing up phlegm. Denies chest pain or palpitatons. Objective Vital Signs, Last 4 Hours Pulse Resp BP Pulse Ox 12/06/18 07:54 100 16 139/81 97 12/06/18 07:49 16 96 General: Conversant, No Apparent Distress HEENT: Atraumatic, Normocephaly, Mucus Membranes Moist Neck: No JVD, Normal carotid pulses Cardiac: Other (irregulalrly irregualr, loud click noted) Lungs: Other (respirations easy, moist cough noted, expiratory wheezes noted.) Neuro: Alert and responsive, No focal deficits noted Abdomen: Soft, Non-Tender Skin: No rashes noted on visualized skin Musculoskeletal: No Chest Wall Tenderness Extremities: No Clubbing, No Cyanosis, Normal Pulses, Other (trace -1+ankle edema) Results 12/05/18 14:52 12/04/18 02:18 Lab Results 12/05/18 12/05/18 12/06/18 14:52 14:52 04:14 WBC 17.0 H D Hgb 13.7 Hct 44.2 Plt Count 234 INR 1.5 1.5 - Imaging and Cardiology Echo: report reviewed - EKG Interpretation EKG results cardiology: personally reviewed Consult Discharge Plan - Plan Referrals: Desmond Howe MD [Primary Care Provider] -
[2018-12-06 09:54] LABS: Basophils % 0.1 %; Hematocrit 44.5 % (35.3-44.9); Hemoglobin 13.8 g/dL (11.5-15.4); Immature Granulocytes % 0.6 % (0-4); Lymphocytes # 0.3 K/mcL (0.6-4.6); Lymphocytes % 2.4 %; Mean Corpuscular Hemoglobin 32.2 pg (28.0-33.3); Mean Corpuscular Volume 103.7 fL (83.0-100.0); Mean Platelet Volume 11.8 fL (9.4-12.4); Monocytes # 0.2 K/mcL (0.0-1.3); Monocytes % 1.6 %; Neutrophils # 13.2 K/mcL (1.6-8.9); Platelet Count 217 K/mcL (140-400); Red Blood Count 4.29 M/mcL (3.82-4.97); Red Cell Distribution Width 13.3 % (11.5-14.5); Segmented Neutrophils % 95.3 %
[2018-12-06 10:23] LABS: BUN/Creatinine Ratio 49 (6-26); Blood Urea Nitrogen 38 mg/dL (8-23); Calcium 9.7 mg/dL (8.6-10.3); Carbon Dioxide 41 mEq/L (23-29); Chloride 94 mEq/L (98-107); Glucose 213 mg/dL (70-105); Osmolality,Calculated 307 (280-300); Potassium 3.7 mEq/L (3.5-5.1); Sodium 141 mEq/L (136-145); eGFR For Non-African Americans > 60 (> 60)
[2018-12-06] MEDS ORDERED: Furosemide 20 MG/2 ML VIAL IVP ONE (11:45)
[2018-12-06] MEDS: Aspirin Enteric Coated 325 MG Tablet PO SCH (12:17)
[2018-12-06] MEDS ORDERED: *HR* Enoxaparin 60 MG/0.6 ML SYRINGE SQ SCH ×2 (14:00→18:00)
[2018-12-06] MEDS: Levofloxacin 750 MG/150 ML 750 MG/150 ML BAG IVPB SCH (17:39)
[2018-12-06] MEDS: MethylPREDNISolone 40 MG/ML VIAL IVP SCH (17:39)
[2018-12-06] MEDS ORDERED: *HR* Warfarin 10 MG TABLET PO ONE (18:00)
[2018-12-06] MEDS ORDERED: Warfarin perPT PO SCH (18:00)
--- NOTE | 2018-12-06 19:14 | Internal Med Progress Note ---
Hospitalist Progress Note - Encounter Date of Encounter: 12/06/18 Time of Encounter: 11:00 - Subjective Interval History: Patient still with shortness of breath secondary to acute respiratory failure due to COPD exacerbation. - Exam Vitals: Temp Pulse Resp BP Pulse Ox 97.9 F 93 18 118/71 92 12/06/18 16:26 12/06/18 16:26 12/06/18 16:26 12/06/18 16:26 12/06/18 16:26 Exam: Gen.: Nonacute distress, alert and oriented 3 ENT: Mucosal membranes moist Respiratory: Lungs are clear to auscultation bilaterally without any wheezing rhonchi or rales Cardiovascular: Normal S1 and S2 regular rate rhythm no murmurs rubs or gallops Abdomen: Soft, nontender and nondistended with positive bowel sounds Extremities: No lower extremity edema Skin: Normal color - Assessment and Plan (1) Coronary artery disease Current Visit: No Status: Chronic Assessment and Plan: Continue tele, cycle tropo. resume home meds. (2) Hyperthyroidism Current Visit: No Status: Chronic Assessment and Plan: Continue home meds. (3) COPD exacerbation Current Visit: Yes Status: Acute Assessment and Plan: Continue scheduled dual nebs with IV Solu-Medrol (4) HTN (hypertension) Current Visit: No Status: Chronic Assessment and Plan: Continue home medications (5) Atrial fibrillation with RVR Current Visit: Yes Status: Acute Assessment and Plan: Will continue by mouth Cardizem at 360 mg daily (6) Acute and chronic respiratory failure Current Visit: Yes Status: Acute Assessment and Plan: COPD exacerbation with possible acute bronchitis. Continue O2, BiPAP at time and PRN. Continue on IV Levaquin for possible PNA. IV steroid and bronchodilators. DVT Prophylaxis: Lovenox subcutaneous - Time Spent with Patient Total time spent is greater than 50% in coordination of care (as documented) at patient's floor/unit and/or counseling patient: Internal Medicine: Result - Labs CBC & Chem 7: 12/06/18 09:29 12/06/18 09:29 Labs: Short CBC 12/06/18 Range/Units 09:29 WBC 13.9 H (4.3-11.1) K/mcL Hgb 13.8 (11.5-15.4) g/dL Hct 44.5 (35.3-44.9) % Plt Count 217 (140-400) K/mcL Neutrophils # 13.2 H (1.6-8.9) K/mcL BMP 12/06/18 09:29 Sodium 141 Potassium 3.7 Chloride 94 L Carbon Dioxide 41 H* BUN 38 H Creatinine 0.78 Glucose 213 H Calcium 9.7 - ABG Interpretation ABG results: ABG ABG pH 7.39 pH Units (7.32-7.45) 12/04/18 08:27 ABG pCO2 68 mmHg (35-45) H 12/04/18 08:27 ABG pO2 63 mmHg (85-104) L 12/04/18 08:27 ABG O2 Saturation 90 % (95-98) L 12/04/18 08:27 PT/INR, D-dimer PT 16.8 Seconds (9.4-12.1) H 12/06/18 04:14 Consult Discharge Plan - Plan Referrals: Desmond Howe MD [Primary Care Provider] - ___ (1) Coronary artery disease Qualifiers: Coronary Disease-Associated Artery/Lesion type: [place] artery [place] vs. transplanted heart: [place] heart Associated angina: without angina Qualified Code(s): I25.10 - Atherosclerotic heart disease of [place] coronary artery without angina pectoris (4) HTN (hypertension) Qualifiers: Hypertension type: essential hypertension Qualified Code(s): I10 - Essential (primary) hypertension (6) Acute and chronic respiratory failure Qualifiers: Respiratory failure complication: hypoxia and hypercapnia Qualified Code(s): J96.21 - Acute and chronic respiratory failure with hypoxia; J96.22 - Acute and chronic respiratory failure with hypercapnia
[2018-12-06] MEDS ORDERED: diazePAM 5 MG TABLET PO ONE ×2 (20:09)
[2018-12-07] MEDS: Ipratropium/Albuterol Neb 3 ML IH SCH ×5 (00:08→15:28)
[2018-12-07] MEDS: MethylPREDNISolone 40 MG/ML VIAL IVP SCH ×2 (01:13→11:44)
[2018-12-07] MEDS: *HR* Enoxaparin 60 MG/0.6 ML SYRINGE SQ SCH ×2 (01:17→17:22)
[2018-12-07 05:35] LABS: INR 1.4; Prothrombin Time 15.9 Seconds (9.4-12.1)
[2018-12-07 06:43] VITALS: BP 135/89
[2018-12-07] MEDS: Budesonide/Formoterol 80/4.5 MDI IH SCH (08:02)
[2018-12-07 10:02] LABS: Basophils % 0.1 %; Hematocrit 45.8 % (35.3-44.9); Hemoglobin 14.3 g/dL (11.5-15.4); Immature Granulocytes % 0.7 % (0-4); Lymphocytes # 0.2 K/mcL (0.6-4.6); Lymphocytes % 2.4 %; Mean Corpuscular HGB Conc 31.2 g/dL (31.6-35.5); Mean Corpuscular Hemoglobin 32.2 pg (28.0-33.3); Mean Corpuscular Volume 103.2 fL (83.0-100.0); Mean Platelet Volume 11.8 fL (9.4-12.4); Monocytes # 0.2 K/mcL (0.0-1.3); Monocytes % 2.1 %; Neutrophils # 9.4 K/mcL (1.6-8.9); Platelet Count 209 K/mcL (140-400); Red Blood Count 4.44 M/mcL (3.82-4.97); Red Cell Distribution Width 13.2 % (11.5-14.5); Segmented Neutrophils % 94.7 %
--- NOTE | 2018-12-07 10:07 | Cardiology Progress Note ---
Addendum entered and electronically signed by Sandra Johnson DO 12/07/18 14:44: I examined this patient and my medical decision-making was reviewed with the CN P. I agree with the documented findings, disposition and treatment plan as described. Ms. Slade feels a little better today. Lung exam still with decreased air entry, wheeze and some rhonchi. Given one dose of IV lasix yesterday. BUN slightly elevated. Net negative 635mL. CXR without pulmonary edema. Will defer pulmonary management to Hospitalist team. Not fluid overloaded. Atrial fibrillation controlled. Continue current medications. She is on anticoagulation. Continue therapeutic lovenox plus aspirin for anticoagulation bridging for mechanical valves due to upcoming elective procedure at [facility]. Coumadin is being held. If patient is here on Monday, may consider transfer to [facility]. For now, signing off. Please call with questions. Addendum entered and electronically signed by Lele Frazier CNP 12/07/18 12:35: CXR reviewed. No acute findings. Lungs are clear. She appears euvolemic on exam and BUN rising with IV lasix. Would not recommend further IV diuresis. Continue treatment COPD. Cardiology will sign off. Please notify us if she is still here on monday. She would be recommended to be transfered to [facility] as planned if she is here on Monday. Original Note: Date of Encounter: 12/07/18 Time of Encounter: 09:45 Assessment and Plan (1) Severe tricuspid regurgitation Current Visit: Yes Status: Acute Severe TR. Seen by Dr. Reilly at [facility] 09/2018 to discuss MitraClip for TR. She is scheduled for admission at [facility] 12/11/18 for torsten clip and antiarrhythmic therapy. Dr. Johnson called and discussed POC with Dr. Reilly. She is recommended to proceed as planned in out-pt setting. She will need less than therpeutic INR for scheduled procedure. Per discussion between Dr. Johnson and her vocational guidance counselor at [facility] she is recommended to hold coumadin and use therapeutic lovenox bridge with asa. Continue lovenox 60 mg SQ BID and asa 325 mg daily. Patient previously given lovenox SQ at home and agrees with plan. She will be called at home 12/11/18 for directions for admission to [facility]. Cardiology will monitor peripherally as she continues to be treated for COPD exacerbation. (2) Atrial fibrillation Current Visit: No Status: Chronic Known hx of A-Fib. Presented RVR in setting of acute on chronic respiratory failure. Home meds included Cardizem CD 360mg daily and Lopressor 25mg BID. Lopressor was increased by primary team to 75mg BID. 12 hr tele AVG HR 87 bpm. Currently rate controlled. In the past, BB has been decreased d/t fatigue. Discussed with patient, she agrees to continue medication with plan for tikosyn therapy to be initiated at [facility] 12/11/18. Anticoagulated on Coumadin for A-Fib and mechanical aortic and mitral valves. See plan above, planning for torsten clip. She was recommended to hold coumadin for procedure next monday and is taking therapeutic lovenox bridge. Further recommendation for intermediate frame tender AC at [facility]. Qualifiers: Atrial fibrillation type: chronic Qualified Code(s): I48.2 - Chronic atrial fibrillation (3) Coronary artery disease Current Visit: No Status: Chronic Hx of 1V CABG, SVG-D1 in 1995. Continue ASA, Statin, BB. Negative nuclear stress test 09/2018. Denies chest pain. Qualifiers: Coronary Disease-Associated Artery/Lesion type: [place] artery [place] vs. transplanted heart: [place] heart Associated angina: without angina Qualified Code(s): I25.10 - Atherosclerotic heart disease of [place] coronary artery without angina pectoris (4) Mechanical heart valve present Current Visit: No Status: Acute Hx of mechanical mitral and aortic valve replacements. On coumadin with goal INR 2.5-3.5. Hold coumadin as discussed above and start lovenox 60 mg SQ BID and asa daily for bridge therapy prior to planned procedure. (5) COPD exacerbation Current Visit: Yes Status: Acute States SOB improved but is concerned about continued congestion and feels distressed when trying to cough up. On mucinex, scheduled breathing treatments, and IV steroids. IV lasix given yesterday for possible fluid component. I will order percussion to be completed by RT. No CHF on CT 12/03/18. Will repeat CXR for continued symptoms to re-evaluate. Based on CXR and pending labs may repeat low dose lasix. Also on levaquin for possible PNA. Primary team following. Discussion w patient/family: The assessment and plan as outlined above was discussed with the patient and/or family members who expressed understanding and agreement. All questions were answered. Thank you for involving us in the care of your patient. Please call with any questions. Subjective Principal diagnosis: afib, valvular heart disease Interval history: Ms. Slade is sitting on the side of her bed and was just ambulating in her room. Spo2 noted to decrease to 87% but improved to 91 % with rest. States that she is feeling better and was able to sleep last night. Denies chest pain or palpitations. Objective Vital Signs, Last 4 Hours Temp Pulse Resp BP Pulse Ox 12/07/18 06:42 97.7 F 98 16 135/89 92 General: Conversant, No Apparent Distress HEENT: Atraumatic, Normocephaly, Mucus Membranes Moist Neck: No JVD, Normal carotid pulses Cardiac: Other (Irregularly irregular) Lungs: Other (respirations easy, loud rhonci scattered through-out) Neuro: Alert and responsive, No focal deficits noted Abdomen: Soft, Non-Tender Skin: No rashes noted on visualized skin Musculoskeletal: No Chest Wall Tenderness Extremities: No Clubbing, No Cyanosis, No Edema, Normal Pulses Results 12/06/18 09:29 12/06/18 09:29 Lab Results 12/06/18 12/06/18 12/07/18 09:29 09:29 05:03 WBC 13.9 H Hgb 13.8 Hct 44.5 Plt Count 217 INR 1.4 Sodium 141 Potassium 3.7 Chloride 94 L Carbon Dioxide 41 H* BUN 38 H Creatinine 0.78 Glucose 213 H Calcium 9.7 - Imaging and Cardiology Echo: report reviewed - EKG Interpretation EKG results cardiology: personally reviewed Consult Discharge Plan - Plan Referrals: Desmond Howe MD [Primary Care Provider] - Prescriptions: Enoxaparin [Lovenox] 60 mg SQ Q12H 14 Days #28 syringe
[2018-12-07 10:24] LABS: BUN/Creatinine Ratio 49 (6-26); Blood Urea Nitrogen 40 mg/dL (8-23); Calcium 9.7 mg/dL (8.6-10.3); Carbon Dioxide 43 mEq/L (23-29); Chloride 95 mEq/L (98-107); Glucose 247 mg/dL (70-105); Osmolality,Calculated 314 (280-300); Potassium 3.9 mEq/L (3.5-5.1); Sodium 143 mEq/L (136-145); eGFR For Non-African Americans > 60 (> 60)
[2018-12-07] MEDS: Aspirin Enteric Coated 325 MG Tablet PO SCH (11:42)
[2018-12-07] MEDS: Diltiazem CD (24hr) 180 MG CAPSULE PO SCH (11:42)
--- NOTE | 2018-12-07 16:09 | Discharge Summary ---
- NOTES TO OUTPATIENT PROVIDER Notes to Outpatient Provider: Follow-up to [facility] Date of Encounter: 12/07/18 Time of Encounter: 11:00 - Discharge Diagnosis (1) Coronary artery disease Priority: Primary Status: Chronic Qualifiers: Coronary Disease-Associated Artery/Lesion type: [place] artery [place] vs. transplanted heart: circle heart Associated angina: without angina Qualified Code(s): I25.10 - Atherosclerotic heart disease of circle coronary artery without angina pectoris (2) Hyperthyroidism Priority: Secondary Status: Chronic (3) COPD exacerbation Priority: Primary Status: Acute (4) HTN (hypertension) Priority: Secondary Status: Chronic Qualifiers: Hypertension type: essential hypertension Qualified Code(s): I10 - Essential (primary) hypertension (5) Atrial fibrillation with RVR Priority: Primary Status: Acute (6) Acute and chronic respiratory failure Priority: Primary Status: Acute Qualifiers: Respiratory failure complication: hypoxia and hypercapnia Qualified Code(s): J96.21 - Acute and chronic respiratory failure with hypoxia; J96.22 - Acute and chronic respiratory failure with hypercapnia Hospital course: Patient is a 73-year-old female with past medical history significant for atrial fibrillation, CHF, COPD, coronary artery disease, CVA, fibromyalgia, glaucoma, hyperlipidemia, hypertension, myocardial infarction, thyroid disease and valvular heart disease who presented due to shortness of breath. Patients hospital stay she was treated for COPD exacerbation in shortness of breath improved. Cardiology was also consulted due to patients history of severe tricuspid regurgitation with A. fib recommendations to discontinue Coumadin and place patient on Lovenox in order for her to be ready for procedure at [facility] next week. Patient will be discharged to follow-up with procedure at [facility]. - Time Spent with Patient Total time spent providing and/or coordinating discharge services: - Discharge Medications Prescriptions: New Enoxaparin [Lovenox] 60 mg SQ Q12H 14 Days #28 syringe Aspirin Enteric Coated [Aspirin EC] 325 mg PO DAILY #30 tablet. Metoprolol [Lopressor] 75 mg PO BID 30 Days #90 tablet Continue Montelukast [Singulair] 10 mg PO HS Pravastatin Sodium [Pravachol] 20 mg PO HS clonazePAM [Klonopin] 0.5 mg PO HS PRN PRN Reason: Anxiety Albuterol Sulfate [Albuterol Inhaler] 2 puff IH Q4HR PRN PRN Reason: Shortness Of Breath dilTIAZem HCl [Diltiazem 24Hr Cd] 360 mg PO DAILY Ascorbic Acid [Vitamin C] 500 mg PO DAILY Losartan [Cozaar] 25 mg PO DAILY #90 tablet Chlorthalidone 50 mg PO DAILY BuPROPion XL (24 HR) [Wellbutrin Xl] 150 mg PO QAM Vit A/Vit C/Vit E/Zinc/Copper [Preservision Areds Tablet] 1 each PO DAILY Mirabegron [Myrbetriq] 50 mg PO DAILY Cyanocobalamin (B-12) [Vitamin B12] 1,000 mcg PO DAILY tablet Budesonide/Formoterol 80/4.5 [Symbicort 80/4.5] 2 puff IH BIDR Discontinued Aspirin [Lo-Dose Aspirin EC] 81 mg PO DAILY Warfarin Sodium 5 mg PO WESA Warfarin Sodium 10 mg PO SUMOTUTHFR Metoprolol [Lopressor] 25 mg PO BID #60 tablet Home Medications: Montelukast [Singulair] 10 mg PO HS 07/20/15 [History] Pravastatin Sodium [Pravachol] 20 mg PO HS 07/20/15 [History] clonazePAM [Klonopin] 0.5 mg PO HS PRN 08/24/16 [History] Albuterol Sulfate [Albuterol Inhaler] 2 puff IH Q4HR PRN 11/18/16 [History] Ascorbic Acid [Vitamin C] 500 mg PO DAILY 05/09/17 [History] dilTIAZem HCl [Diltiazem 24Hr Cd] 360 mg PO DAILY 05/09/17 [History] Losartan [Cozaar] 25 mg PO DAILY #90 tablet 12/28/17 [Rx] BuPROPion XL (24 HR) [Wellbutrin Xl] 150 mg PO QAM 05/18/18 [History] Chlorthalidone 50 mg PO DAILY 05/18/18 [History] Vit A/Vit C/Vit E/Zinc/Copper [Preservision Areds Tablet] 1 each PO DAILY 05/31/18 [History] Mirabegron [Myrbetriq] 50 mg PO DAILY 08/12/18 [History] Cyanocobalamin (B-12) [Vitamin B12] 1,000 mcg PO DAILY tablet 08/13/18 [Rx] Budesonide/Formoterol 80/4.5 [Symbicort 80/4.5] 2 puff IH BIDR 09/04/18 [History] Aspirin Enteric Coated [Aspirin EC] 325 mg PO DAILY #30 tablet. 12/07/18 [Rx] Enoxaparin [Lovenox] 60 mg SQ Q12H 14 Days #28 syringe 12/07/18 [Rx] Metoprolol [Lopressor] 75 mg PO BID 30 Days #90 tablet 12/07/18 [Rx] Allergies/Adverse Reactions: Allergy/AdvReac Type Severity Reaction Status Date / Time furosemide Allergy Hives Verified 12/03/18 11:00 Iodinated Contrast- Oral and Allergy Rash Verified 12/03/18 11:00 IV Dye Penicillins [PCN] Allergy anaphylacti Verified 12/03/18 11:00 c Sulfa (Sulfonamide Allergy Hives Verified 12/03/18 11:00 Antibiotics) Barbiturates AdvReac Seizure Verified 12/03/18 11:00 Date of admission: 12/04/18 15:46 Primary care physician: Desmond Howe MD Consults: 12/03/18 22:13 Consult to Nutrition [CONS] Routine Comment: Consulting Provider: NUTRITION Reason for Dietary Consult: MST Score Consult to Pastoral Services [CONS] Routine Comment: Consult to Event Sales Representative [CONS] Routine Reason for SW Consult: advance directive and POA 12/04/18 14:37 Consult to Cardiology [CONS] Routine Comment: Consulting Provider: Cardiology [place] Reason for Consult: afib, noncompliacne Call Completed: Yes 12/04/18 16:58 Consult to Nurse Navigator [CONS] Routine Comment: COPD - Constitutional Vitals: Temp Pulse Resp BP Pulse Ox 97.7 F 98 18 135/89 93 12/07/18 06:42 12/07/18 06:42 12/07/18 11:40 12/07/18 06:42 12/07/18 11:40 General appearance: Present: cooperative, A&O X 3 Exam: Gen.: Nonacute distress, alert and oriented 3 Skin: Normal color - Patient Status Disposition: Home, Self-Care Condition: Fair - Discharge Instructions Instructions: Metoprolol (By mouth), Aspirin (By mouth), Enoxaparin (Injection) Follow Up With: Desmond Howe MD [Primary Care Provider] - 12/11/18 4:00 pm
== END 2018-12-07 17:30 | disposition home or self-care (01) | DRG 190 ==
LOC: 2NENU 12:51 → EMEROOARM 12:51 → 2NENU 20:31 → SUATTDRO 12-04 15:46
PROVIDERS: ADMIT Internal Medicine; ATTEND Hospitalist

== ENCOUNTER 2019-09-19 11:03 | Observation (INO) ==
[2019-09-19 12:13] LABS: INR 3.6; Prothrombin Time 41.3 Seconds (9.4-12.1)
[2019-09-19 12:14] LABS: Basophils # 0.1 K/mcL (0.0-0.2); Basophils % 1.2 %; Eosinophils # 0.2 K/mcL (0.0-0.6); Eosinophils % 2.3 %; Hematocrit 47.9 % (35.3-44.9); Immature Granulocytes % 0.2 % (0-4); Lymphocytes # 0.9 K/mcL (0.6-4.6); Lymphocytes % 9.8 %; Mean Corpuscular HGB Conc 33.4 g/dL (31.6-35.5); Mean Corpuscular Hemoglobin 32.4 pg (28.0-33.3); Mean Platelet Volume 11.9 fL (9.4-12.4); Monocytes # 1.2 K/mcL (0.0-1.3); Monocytes % 12.7 %; Neutrophils # 6.7 K/mcL (1.6-8.9); Platelet Count 272 K/mcL (140-400); Red Blood Count 4.94 M/mcL (3.82-4.97); Red Cell Distribution Width 12.8 % (11.5-14.5); Segmented Neutrophils % 73.8 %
[2019-09-19 12:31] LABS: BUN/Creatinine Ratio 25 (6-26); Blood Urea Nitrogen 26 mg/dL (8-23); Calcium 10.5 mg/dL (8.6-10.3); Carbon Dioxide 32 mEq/L (23-29); Chloride 102 mEq/L (98-107); Glucose 91 mg/dL (70-105); Osmolality,Calculated 296 (280-300); Potassium 4.1 mEq/L (3.5-5.1); Sodium 141 mEq/L (136-145); eGFR For African Americans > 60 (> 60); eGFR For Non-African Americans 51 (> 60)
[2019-09-19] MEDS ORDERED: Naloxone 0.4 MG/ML INJ IVP PRN (15:23)
[2019-09-19] MEDS ORDERED: Warfarin perPT PO PRN (18:00)
[2019-09-19] MEDS ORDERED: *HR* Warfarin 2.5 MG TABLET PO ONE (20:15)
[2019-09-19] MEDS: Mirtazapine 15 MG TABLET PO SCH (22:49)
[2019-09-20 06:01] LABS: INR 3.2; Prothrombin Time 36.3 Seconds (9.4-12.1)
[2019-09-20] MEDS: Carbidopa/Levodopa 25/100 TABLET PO SCH (09:08)
[2019-09-20] MEDS: Folic Acid 1 MG TABLET PO SCH (09:08)
[2019-09-20] MEDS: (Vit A/Vit C/Vit E/Zinc/Copper [Preservision Areds Ta) PO SCH (09:08)
[2019-09-20] MEDS: Diltiazem CD (24hr) 180 MG CAPSULE PO SCH (09:08)
[2019-09-20] MEDS ORDERED: methylPREDNISolone 125 MG/2 ML VIAL IVP ONE (10:00)
[2019-09-20] MEDS ORDERED: *HR* Warfarin 5 MG TABLET PO ONE (18:00)
[2019-09-20] MEDS ORDERED: *HR* LORazepam 0.5 MG TABLET PO SCH (21:00)
[2019-09-20] MEDS: Mirtazapine 15 MG TABLET PO SCH (21:28)
[2019-09-21] MEDS: Carbidopa/Levodopa 25/100 TABLET PO SCH (08:46)
[2019-09-21] MEDS: Diltiazem CD (24hr) 180 MG CAPSULE PO SCH (08:46)
[2019-09-21] MEDS: Folic Acid 1 MG TABLET PO SCH (08:46)
[2019-09-21] MEDS: (Vit A/Vit C/Vit E/Zinc/Copper [Preservision Areds Ta) PO SCH (08:47)
[2019-09-21 10:03] LABS: INR 2.5; Prothrombin Time 28.7 Seconds (9.4-12.1)
[2019-09-21 11:01] VITALS: BP 118/71
[2019-09-21] MEDS ORDERED: *HR* Warfarin 5 MG TABLET PO ONE (18:00)
== END 2019-09-21 14:00 | disposition home or self-care (01) ==
LOC: 3BNU 11:03 → EMEROOARM 11:03 → SUATTDRO 14:50 → 3BNU 16:08
PROVIDERS: ADMIT Internal Medicine; ATTEND Internal Medicine

== ENCOUNTER 2020-12-13 01:32 | Inpatient (IN) ==
[2020-12-13] MEDS ORDERED: Ipratropium/Albuterol Neb 3 ML ONE (01:38)
[2020-12-13] MEDS ORDERED: methylPREDNISolone 125 MG/2 ML VIAL IVP ONE (01:40)
[2020-12-13] MEDS ORDERED: Ipratropium/Albuterol Neb 3 ML IH ONE (01:40)
[2020-12-13 01:49] LABS: ABG Base Excess 8 mEq/L (-2 to 3); ABG HCO3 43 mEq/L (21-27); ABG Oxygen Saturation 94 % (95-98); ABG PCO2 142 mmHg (35-45); ABG PH 7.09 pH Units (7.32-7.45); ABG PO2 108 mmHg (85-104); ABG TCO2 47 mEq/L (20-26)
[2020-12-13 02:00] LABS: Eosinophils % 2.7 %; Immature Granulocytes % 0.9 % (0-4); Mean Platelet Volume 11.7 fL (9.4-12.4)
[2020-12-13 02:01] LABS: Basophils # 0.1 K/mcL (0.0-0.2); Basophils % 0.9 %; Eosinophils # 0.3 K/mcL (0.0-0.6); Hemoglobin 12.3 g/dL (11.5-15.4); Lymphocytes # 0.9 K/mcL (0.6-4.6); Lymphocytes % 9.7 %; Mean Corpuscular HGB Conc 29.3 g/dL (31.6-35.5); Mean Corpuscular Hemoglobin 33.2 pg (28.0-33.3); Mean Corpuscular Volume 113.5 fL (83.0-100.0); Monocytes # 1.3 K/mcL (0.0-1.3); Monocytes % 13.4 %; Platelet Count 230 K/mcL (140-400); Red Cell Distribution Width 13.2 % (11.5-14.5); Segmented Neutrophils % 72.4 %; White Blood Count 9.6 K/mcL (4.3-11.1)
[2020-12-13] MEDS: 0.9 % Sodium Chloride 1,000 ML IVC SCH ×4 (02:10→18:49)
[2020-12-13 02:11] LABS: INR 2.5; Prothrombin Time 27.9 Seconds (9.4-12.1)
[2020-12-13 02:13] LABS: Activated Partial Thrombo Time 39.2 Seconds (26.0-36.0)
[2020-12-13 02:25] LABS: Alanine Aminotransferase 10 Units/L (7-52); Albumin 3.7 g/dL (3.5-5.7); Albumin/Globulin Ratio 1.5 (1.1-2.2); Alkaline Phosphatase 111 Units/L (34-104); Aspartate Amino Transferase 38 Units/L (13-39); BUN/Creatinine Ratio 35 (6-26); Bilirubin,Direct 0.1 mg/dL (0.0-0.2); Bilirubin,Indirect 0.4 mg/dL (0.0-1.0); Bilirubin,Total 0.5 mg/dL (0.3-1.0); Blood Urea Nitrogen 27 mg/dL (8-23); Calcium 9.2 mg/dL (8.6-10.3); Carbon Dioxide 40 mEq/L (23-29); Chloride 105 mEq/L (98-107); Globulin 2.5 g/dL (2.4-3.5); Glucose 144 mg/dL (70-105); Osmolality,Calculated 312 (280-300); Potassium 4.8 mEq/L (3.5-5.1); Sodium 147 mEq/L (136-145); Total Protein 6.2 g/dL (6.4-8.9); Troponin I 0.24 ng/mL (< 0.04); eGFR For African Americans > 60 (> 60); eGFR For Non-African Americans > 60 (> 60)
[2020-12-13 02:26] LABS: Macrocytosis Present (Not Present); Platelet Estimate Normal (Normal)
[2020-12-13] MEDS: FentaNYL (PF) 1,000 MCG/100 ML IV.SOLN IVC SCH ×2 (02:28→11:44)
[2020-12-13 02:41] LABS: Bilirubin,Urine Negative (Negative); Blood,Urine Negative (Negative); Clarity,Urine Clear (Clear); Color,Urine Yellow (Yellow); Glucose,Urine (UA) Normal (Normal); Hyaline Casts,Urine Few per lpf (None Seen); Ketones,Urine Negative (Negative); Leukocyte Esterase,Urine Negative (Negative); Mucus,Urine Few per lpf (None-Few); Nitrite,Urine Negative (Negative); PH,Urine 5.5 pH Units (5.0-8.0); Protein,Urine 70 mg/dL (Neg-Trace); RBC,Urine 0-3 per hpf (0-3); Specific Gravity,Urine 1.021 (1.010-1.025); Urobilinogen,Urine Normal (Normal); WBC,Urine 0-3 per hpf (0-3)
[2020-12-13] MEDS ORDERED: Cefepime HCl 1,000 MG in 0.9 % Sodium Chloride Mini Bag 100 ML IVPB STA (02:52)
[2020-12-13] MEDS ORDERED: Vancomycin 1,250 MG/262.5 ML IV.SOLN IVPB ONE (03:00)
[2020-12-13 03:40] LABS: ABG Base Excess 9 mEq/L (-2 to 3); ABG HCO3 38 mEq/L (21-27); ABG Oxygen Saturation 100 % (95-98); ABG PCO2 75 mmHg (35-45); ABG PH 7.32 pH Units (7.32-7.45); ABG PO2 305 mmHg (85-104); ABG TCO2 41 mEq/L (20-26); Blood Gas Modality ASSIST CONTROL; Blood Gas VT 500 cc
[2020-12-13] MEDS ORDERED: Naloxone 0.4 MG/ML INJ IVP PRN (03:42)
[2020-12-13 05:18] LABS: ABG Base Excess 7 mEq/L (-2 to 3); ABG HCO3 34 mEq/L (21-27); ABG Oxygen Saturation 99 % (95-98); ABG PCO2 53 mmHg (35-45); ABG PH 7.41 pH Units (7.32-7.45); ABG PO2 121 mmHg (85-104); ABG TCO2 35 mEq/L (20-26); Blood Gas Modality ASSIST CONTROL; Blood Gas VT 500 cc
[2020-12-13 05:20] LABS: Adenovirus Not Detected (Not Detect); Bordetella Pertussis Not Detected (Not Detect); Chlamydophila pneumoniae Not Detected (Not Detect); Coronavirus 229E Not Detected (Not Detect); Coronavirus HKU1 Not Detected (Not Detect); Coronavirus NL63 Not Detected (Not Detect); Coronavirus OC43 Not Detected (Not Detect); Human Metapneumovirus Not Detected (Not Detect); Human Rhinovirus/Enterovirus Not Detected (Not Detect); Influenza A Subtype 2009 H1 Not Detected (Not Detect); Influenza B Not Detected (Not Detect); Mycoplasma pneumoniae Not Detected (Not Detect); Parainfluenza Virus 1 Not Detected (Not Detect); Parainfluenza Virus 2 Not Detected (Not Detect); Parainfluenza Virus 3 Not Detected (Not Detect); Parainfluenza Virus 4 Not Detected (Not Detect); Respiratory Syncytial Virus Not Detected (Not Detect); SARS-CoV-2 Not Detected (Not Detect)
[2020-12-13] MEDS ORDERED: Artificial Tears SOLN 15 ML BOTTLE BOTH EYES PRN (05:32)
[2020-12-13] MEDS: 0.9 % Sodium Chloride 500 ML IVC SCH ×2 (05:47→20:13)
[2020-12-13] MEDS: Azithromycin 500 MG in 0.9 % Sodium Chloride 250 ML IVPB SCH (06:06)
[2020-12-13] MEDS: Pantoprazole 40 MG VIAL IVP SCH (06:06)
[2020-12-13] MEDS: Ipratropium/Albuterol Neb 3 ML IH SCH ×7 (07:11→23:39)
[2020-12-13 07:31] LABS: Magnesium 2.1 mg/dL (1.6-2.6)
[2020-12-13 07:33] LABS: INR 2.7; Prothrombin Time 30.3 Seconds (9.4-12.1)
[2020-12-13] MEDS: Chlorhexidine Rinse 15 ML MOUTHWASH MM SCH ×2 (07:34→19:59)
[2020-12-13] MEDS: Artificial Tears SOLN 15 ML BOTTLE BOTH EYES SCH ×5 (07:34→23:48)
[2020-12-13] MEDS ORDERED: *HR* Heparin 5,000 UNIT/ML VIAL IVP ONE (07:45)
[2020-12-13] MEDS ORDERED: *HR* Heparin 5,000 UNIT/ML VIAL IVP PRN ×2 (07:45)
[2020-12-13] MEDS: Heparin 25,000UNIT/250ML 1/2NS 25,000 UNIT/250 ML IV.SOLN IVC SCH (08:53)
[2020-12-13] MEDS ORDERED: Amiodarone Premix 360 MG/200 ML BAG IVC ONE (09:11)
[2020-12-13] MEDS ORDERED: Amiodarone Premix 150 MG/100 ML BAG IVPB ONE (09:11)
[2020-12-13] MEDS: MethylPREDNISolone 40 MG/ML VIAL IVP SCH ×2 (09:38→17:10)
[2020-12-13] MEDS ORDERED: *HR* Succinylcholine 200 MG/10 ML VIAL IVP ONE (11:24)
[2020-12-13] MEDS ORDERED: *HR* Etomidate 20 MG/10 ML AMPUL IVP ONE (11:24)
[2020-12-13] MEDS: Phenylephrine 10 MG in 0.9 % Sodium Chloride 250 ML IVC SCH ×2 (13:23→16:04)
[2020-12-13] MEDS: Amiodarone Premix 360 MG/200 ML BAG IVC SCH (15:51)
[2020-12-13] MEDS ORDERED: Perflutren Lipid Microsphere 1.3 ML in 0.9 % Sodium Chloride 8.7 ML IVP PRN (18:14)
[2020-12-13] MEDS: Phenylephrine 50 MG in 0.9 % Sodium Chloride 250 ML IVC SCH (19:06)
[2020-12-13] MEDS ORDERED: Budesonide/Formoterol 160/4.5 1 PUFF INH IH ONE (19:48)
[2020-12-13] MEDS: Budesonide/Formoterol 80/4.5 1 PUFF INH IH SCH (19:51)
[2020-12-14 00:55] LABS: ABG Base Excess 4 mEq/L (-2 to 3); ABG HCO3 34 mEq/L (21-27); ABG Oxygen Saturation 91 % (95-98); ABG PCO2 80 mmHg (35-45); ABG PH 7.23 pH Units (7.32-7.45); ABG PO2 77 mmHg (85-104); ABG TCO2 36 mEq/L (20-26); Blood Gas VT 350 cc
[2020-12-14] MEDS: MethylPREDNISolone 40 MG/ML VIAL IVP SCH ×3 (03:09→18:19)
[2020-12-14] MEDS: 0.9 % Sodium Chloride 1,000 ML IVC SCH ×2 (03:09→11:16)
[2020-12-14] MEDS ORDERED: *HR* Metoprolol 5 MG/5 ML VIAL IVP ONE (03:09)
[2020-12-14] MEDS: Artificial Tears SOLN 15 ML BOTTLE BOTH EYES SCH ×6 (03:10→23:53)
[2020-12-14] MEDS: Amiodarone Premix 360 MG/200 ML BAG IVC SCH ×2 (03:38→15:17)
[2020-12-14] MEDS: Ipratropium/Albuterol Neb 3 ML IH SCH ×6 (03:47→23:50)
[2020-12-14 03:52] LABS: Hematocrit 38.2 % (35.3-44.9); Hemoglobin 11.2 g/dL (11.5-15.4); Immature Granulocytes % 0.4 % (0-4); Lymphocytes # 0.3 K/mcL (0.6-4.6); Lymphocytes % 2.8 %; Mean Corpuscular HGB Conc 29.3 g/dL (31.6-35.5); Mean Corpuscular Volume 109.1 fL (83.0-100.0); Mean Platelet Volume 11.5 fL (9.4-12.4); Monocytes # 1.1 K/mcL (0.0-1.3); Monocytes % 10.5 %; Neutrophils # 8.8 K/mcL (1.6-8.9); Platelet Count 257 K/mcL (140-400); Red Cell Distribution Width 13.7 % (11.5-14.5); Segmented Neutrophils % 86.3 %; White Blood Count 10.2 K/mcL (4.3-11.1)
[2020-12-14] MEDS: FentaNYL (PF) 1,000 MCG/100 ML IV.SOLN IVC SCH ×2 (04:04→20:12)
[2020-12-14 04:11] LABS: Potassium 4.9 mEq/L (3.5-5.1)
[2020-12-14] MEDS: Azithromycin 500 MG in 0.9 % Sodium Chloride 250 ML IVPB SCH (05:09)
[2020-12-14] MEDS: Pantoprazole 40 MG VIAL IVP SCH (05:09)
[2020-12-14] MEDS: Heparin 25,000UNIT/250ML 1/2NS 25,000 UNIT/250 ML IV.SOLN IVC SCH ×2 (05:10→23:10)
[2020-12-14] MEDS: Budesonide/Formoterol 80/4.5 1 PUFF INH IH SCH ×2 (08:15→19:55)
[2020-12-14] MEDS: Chlorhexidine Rinse 15 ML MOUTHWASH MM SCH ×2 (08:28→20:00)
[2020-12-14] MEDS: cefTRIAXone 1,000 MG in Water for inj. (sterile) 10 ML IVP SCH (08:28)
[2020-12-14 10:05] LABS: Magnesium 1.9 mg/dL (1.6-2.6); Phosphorous 3.5 mg/dL (2.7-4.5); Troponin I 0.18 ng/mL (< 0.04)
[2020-12-14] MEDS: Phenylephrine 50 MG in 0.9 % Sodium Chloride 250 ML IVC SCH (18:17)
[2020-12-14] MEDS: hydroCHLOROthiazide 25 MG TABLET PO SCH (18:19)
[2020-12-14] MEDS: 0.9 % Sodium Chloride 500 ML IVC SCH (20:01)
[2020-12-15] MEDS: MethylPREDNISolone 40 MG/ML VIAL IVP SCH ×3 (02:19→17:58)
[2020-12-15] MEDS: Artificial Tears SOLN 15 ML BOTTLE BOTH EYES SCH ×6 (03:28→23:36)
[2020-12-15] MEDS: Amiodarone Premix 360 MG/200 ML BAG IVC SCH ×2 (03:29→16:04)
[2020-12-15] MEDS: Ipratropium/Albuterol Neb 3 ML IH SCH ×6 (03:31→23:44)
[2020-12-15 03:55] LABS: Basophils % 0.1 %; Hematocrit 35.8 % (35.3-44.9); Hemoglobin 11.3 g/dL (11.5-15.4); Immature Granulocytes % 0.3 % (0-4); Lymphocytes # 0.2 K/mcL (0.6-4.6); Lymphocytes % 1.5 %; Mean Corpuscular HGB Conc 31.6 g/dL (31.6-35.5); Mean Corpuscular Hemoglobin 32.7 pg (28.0-33.3); Mean Corpuscular Volume 103.5 fL (83.0-100.0); Mean Platelet Volume 11.9 fL (9.4-12.4); Monocytes # 0.6 K/mcL (0.0-1.3); Monocytes % 4.5 %; Neutrophils # 11.6 K/mcL (1.6-8.9); Platelet Count 199 K/mcL (140-400); Red Blood Count 3.46 M/mcL (3.82-4.97); Segmented Neutrophils % 93.6 %; White Blood Count 12.4 K/mcL (4.3-11.1)
[2020-12-15 04:21] LABS: Calcium 8.9 mg/dL (8.6-10.3); Potassium 4.2 mEq/L (3.5-5.1)
[2020-12-15 04:30] LABS: Platelet Estimate Normal (Normal)
[2020-12-15 04:43] LABS: Thyroid Stimulating Hormone 0.902 mcIU/mL (0.340-5.600)
[2020-12-15 05:51] LABS: ABG Base Excess 2 mEq/L (-2 to 3); ABG HCO3 27 mEq/L (21-27); ABG Oxygen Saturation 95 % (95-98); ABG PCO2 41 mmHg (35-45); ABG PH 7.42 pH Units (7.32-7.45); ABG PO2 72 mmHg (85-104); ABG TCO2 28 mEq/L (20-26); Blood Gas VT 450 cc
[2020-12-15] MEDS: Azithromycin 500 MG in 0.9 % Sodium Chloride 250 ML IVPB SCH (05:56)
[2020-12-15] MEDS: Pantoprazole 40 MG VIAL IVP SCH (05:56)
[2020-12-15] MEDS: FentaNYL (PF) 1,000 MCG/100 ML IV.SOLN IVC SCH (06:38)
[2020-12-15] MEDS: Budesonide/Formoterol 80/4.5 1 PUFF INH IH SCH ×2 (07:10→19:34)
[2020-12-15] MEDS: Chlorhexidine Rinse 15 ML MOUTHWASH MM SCH ×2 (07:59→20:29)
[2020-12-15] MEDS: hydroCHLOROthiazide 25 MG TABLET PO SCH (08:05)
[2020-12-15] MEDS: cefTRIAXone 1,000 MG in Water for inj. (sterile) 10 ML IVP SCH (08:24)
[2020-12-15] MEDS ORDERED: *HR* Metoprolol 5 MG/5 ML VIAL IVP PRN (09:19)
[2020-12-15] MEDS ORDERED: *HR* Metoprolol 5 MG/5 ML VIAL IVP ONE (09:20)
[2020-12-15] MEDS: Bumetanide 1 MG/4 ML VIAL IVP SCH ×2 (12:53→17:59)
[2020-12-15] MEDS ORDERED: DilTIAZem 50 MG in 0.9 % Sodium Chloride 40 ML IVC SCH (14:15)
[2020-12-15] MEDS: Phenylephrine 50 MG in 0.9 % Sodium Chloride 250 ML IVC SCH (17:59)
[2020-12-15] MEDS: *HR* LORazepam 2 MG/ML VIAL IVP PRN (20:27)
[2020-12-16] MEDS: Artificial Tears SOLN 15 ML BOTTLE BOTH EYES SCH ×2 (03:37→07:12)
[2020-12-16] MEDS: MethylPREDNISolone 40 MG/ML VIAL IVP SCH ×3 (03:37→16:51)
[2020-12-16] MEDS: Amiodarone Premix 360 MG/200 ML BAG IVC SCH ×2 (03:38→16:18)
[2020-12-16] MEDS: Ipratropium/Albuterol Neb 3 ML IH SCH ×5 (04:05→20:10)
[2020-12-16 04:09] LABS: Basophils % 0.1 %; Hematocrit 40.7 % (35.3-44.9); Immature Granulocytes % 0.5 % (0-4); Lymphocytes # 0.2 K/mcL (0.6-4.6); Lymphocytes % 1.1 %; Mean Corpuscular HGB Conc 31.7 g/dL (31.6-35.5); Mean Corpuscular Hemoglobin 32.5 pg (28.0-33.3); Mean Corpuscular Volume 102.5 fL (83.0-100.0); Mean Platelet Volume 12.3 fL (9.4-12.4); Monocytes # 0.8 K/mcL (0.0-1.3); Monocytes % 6.1 %; Platelet Count 179 K/mcL (140-400); Red Blood Count 3.97 M/mcL (3.82-4.97); Segmented Neutrophils % 92.2 %; White Blood Count 13.4 K/mcL (4.3-11.1)
[2020-12-16 04:11] LABS: Hemoglobin 12.9 g/dL (11.5-15.4); Neutrophils # 12.4 K/mcL (1.6-8.9)
[2020-12-16 04:24] LABS: Calcium 9.2 mg/dL (8.6-10.3)
[2020-12-16 04:57] LABS: Platelet Estimate Normal (Normal)
[2020-12-16] MEDS: Pantoprazole 40 MG VIAL IVP SCH (05:00)
[2020-12-16] MEDS: *HR* LORazepam 2 MG/ML VIAL IVP PRN ×3 (05:00→23:07)
[2020-12-16] MEDS: Azithromycin 500 MG in 0.9 % Sodium Chloride 250 ML IVPB SCH (05:02)
[2020-12-16] MEDS: Heparin 25,000UNIT/250ML 1/2NS 25,000 UNIT/250 ML IV.SOLN IVC SCH ×2 (07:12→22:16)
[2020-12-16] MEDS: Budesonide/Formoterol 80/4.5 1 PUFF INH IH SCH ×2 (07:25→20:11)
[2020-12-16] MEDS: Bumetanide 1 MG/4 ML VIAL IVP SCH ×2 (08:03→16:46)
[2020-12-16] MEDS: cefTRIAXone 1,000 MG in Water for inj. (sterile) 10 ML IVP SCH (08:03)
[2020-12-16] MEDS: Chlorhexidine Rinse 15 ML MOUTHWASH MM SCH (08:03)
[2020-12-17] MEDS: MethylPREDNISolone 40 MG/ML VIAL IVP SCH (03:32)
[2020-12-17] MEDS: Ipratropium/Albuterol Neb 3 ML IH SCH ×7 (03:41→23:32)
[2020-12-17 03:51] LABS: Hematocrit 38.1 % (35.3-44.9); Hemoglobin 12.1 g/dL (11.5-15.4); Immature Granulocytes % 0.3 % (0-4); Lymphocytes # 0.1 K/mcL (0.6-4.6); Lymphocytes % 0.8 %; Mean Corpuscular HGB Conc 31.8 g/dL (31.6-35.5); Mean Corpuscular Volume 100.8 fL (83.0-100.0); Mean Platelet Volume 12.6 fL (9.4-12.4); Monocytes # 0.7 K/mcL (0.0-1.3); Monocytes % 6.7 %; Neutrophils # 9.5 K/mcL (1.6-8.9); Platelet Count 144 K/mcL (140-400); Red Blood Count 3.78 M/mcL (3.82-4.97); Segmented Neutrophils % 92.2 %; White Blood Count 10.3 K/mcL (4.3-11.1)
[2020-12-17 04:17] LABS: Platelet Estimate Normal (Normal)
[2020-12-17 04:21] LABS: Calcium 8.5 mg/dL (8.6-10.3); Magnesium 1.8 mg/dL (1.6-2.6); Phosphorous 3.9 mg/dL (2.7-4.5); Potassium 2.9 mEq/L (3.5-5.1)
[2020-12-17] MEDS: Amiodarone Premix 360 MG/200 ML BAG IVC SCH ×2 (05:11→15:28)
[2020-12-17] MEDS: Pantoprazole 40 MG VIAL IVP SCH (05:21)
[2020-12-17] MEDS: Azithromycin 500 MG in 0.9 % Sodium Chloride 250 ML IVPB SCH (05:21)
[2020-12-17] MEDS ORDERED: Potassium Chloride 40 MEQ/200 ML BAG IVPB PRN (06:15)
[2020-12-17] MEDS: Budesonide/Formoterol 80/4.5 1 PUFF INH IH SCH ×2 (07:22→20:12)
[2020-12-17] MEDS: *HR* LORazepam 2 MG/ML VIAL IVP PRN ×3 (08:42→23:39)
[2020-12-17] MEDS: cefTRIAXone 1,000 MG in Water for inj. (sterile) 10 ML IVP SCH (08:43)
[2020-12-17] MEDS ORDERED: Bumetanide 1 MG/4 ML VIAL IVP SCH (09:00)
[2020-12-17 13:58] LABS: VBG Ionized Calcium 1.08 mmol/L (1.15-1.35)
[2020-12-17 14:30] LABS: Magnesium 2.2 mg/dL (1.6-2.6); Potassium 3.3 mEq/L (3.5-5.1)
[2020-12-17] MEDS: Calcium Gluconate 1gm/50mL 1 GM/50 ML BAG IVPB SCH ×2 (15:37→16:22)
[2020-12-17] MEDS ORDERED: MethylPREDNISolone 40 MG/ML VIAL IVP SCH (18:00)
[2020-12-18] MEDS: Amiodarone Premix 360 MG/200 ML BAG IVC SCH (00:38)
[2020-12-18] MEDS: Heparin 25,000UNIT/250ML 1/2NS 25,000 UNIT/250 ML IV.SOLN IVC SCH ×2 (00:39→13:28)
[2020-12-18] MEDS: Ipratropium/Albuterol Neb 3 ML IH SCH ×6 (03:42→23:52)
[2020-12-18] MEDS ORDERED: D5% in Water 1,000 ML IVC SCH (04:45)
[2020-12-18] MEDS: Pantoprazole 40 MG VIAL IVP SCH (05:18)
[2020-12-18 06:01] LABS: VBG Ionized Calcium 1.13 mmol/L (1.15-1.35)
[2020-12-18 06:02] LABS: Basophils % 0.1 %; Eosinophils % 0.1 %; Hematocrit 40.2 % (35.3-44.9); Hemoglobin 12.3 g/dL (11.5-15.4); Immature Granulocytes % 0.2 % (0-4); Lymphocytes # 0.1 K/mcL (0.6-4.6); Lymphocytes % 0.8 %; Mean Corpuscular HGB Conc 30.6 g/dL (31.6-35.5); Mean Corpuscular Hemoglobin 31.5 pg (28.0-33.3); Mean Corpuscular Volume 103.1 fL (83.0-100.0); Mean Platelet Volume 12.3 fL (9.4-12.4); Monocytes # 0.6 K/mcL (0.0-1.3); Monocytes % 4.7 %; Platelet Count 163 K/mcL (140-400); Red Cell Distribution Width 14.3 % (11.5-14.5); Segmented Neutrophils % 94.1 %; White Blood Count 12.8 K/mcL (4.3-11.1)
[2020-12-18 06:42] LABS: Calcium 9.5 mg/dL (8.6-10.3); Magnesium 2.3 mg/dL (1.6-2.6); Phosphorous 4.5 mg/dL (2.7-4.5)
[2020-12-18] MEDS: Budesonide/Formoterol 80/4.5 1 PUFF INH IH SCH ×3 (08:10→19:49)
[2020-12-18] MEDS: cefTRIAXone 1,000 MG in Water for inj. (sterile) 10 ML IVP SCH (08:35)
[2020-12-18] MEDS ORDERED: MethylPREDNISolone 40 MG/ML VIAL IVP SCH (09:00)
[2020-12-18] MEDS ORDERED: Amiodarone Premix 360 MG/200 ML BAG IVC SCH (09:43)
[2020-12-18] MEDS ORDERED: Naloxone 0.4 MG/ML INJ IVP PRN (09:43)
[2020-12-18] MEDS ORDERED: *HR* Metoprolol 5 MG/5 ML VIAL IVP PRN (09:43)
[2020-12-18] MEDS ORDERED: *HR* Heparin 5,000 UNIT/ML VIAL IVP PRN ×2 (09:43)
[2020-12-18 10:51] LABS: BUN/Creatinine Ratio 54 (6-26); Blood Urea Nitrogen 58 mg/dL (8-23); Calcium 9.3 mg/dL (8.6-10.3); Carbon Dioxide 37 mEq/L (23-29); Chloride 102 mEq/L (98-107); Glucose 173 mg/dL (70-105); Osmolality,Calculated 326 (280-300); Potassium 3.6 mEq/L (3.5-5.1); Sodium 148 mEq/L (136-145); eGFR For African Americans > 60 (> 60); eGFR For Non-African Americans 50 (> 60)
[2020-12-18] MEDS: *HR* LORazepam 2 MG/ML VIAL IVP PRN ×2 (12:00→23:32)
[2020-12-18] MEDS ORDERED: Calcium Gluconate 1gm/50mL 1 GM/50 ML BAG IVPB SCH (12:00)
[2020-12-18] MEDS: *HR* Amiodarone 200 MG TABLET PO SCH ×2 (13:24→23:33)
[2020-12-18] MEDS: Calcium Gluconate 1gm/50mL 1 GM/50 ML BAG IVPB SCH (13:24)
[2020-12-18] MEDS: D5% in Water 1,000 ML IVC SCH ×2 (13:28→23:27)
[2020-12-18] MEDS ORDERED: E-Z-HD (BARIUM SULF) SUSPENSION PO ONE (14:31)
[2020-12-18] MEDS ORDERED: E-Z-PAQUE (BARIUM SULF) SUSP 1 BOTTLE PO ONE (14:31)
[2020-12-19] MEDS: Heparin 25,000UNIT/250ML 1/2NS 25,000 UNIT/250 ML IV.SOLN IVC SCH ×2 (01:39→10:55)
[2020-12-19] MEDS: Ipratropium/Albuterol Neb 3 ML IH SCH ×5 (03:31→20:11)
[2020-12-19] MEDS: Pantoprazole 40 MG VIAL IVP SCH (06:25)
[2020-12-19 07:02] LABS: Basophils % 0.1 %; Hematocrit 39.5 % (35.3-44.9); Immature Granulocytes % 0.4 % (0-4); Lymphocytes # 0.1 K/mcL (0.6-4.6); Lymphocytes % 0.8 %; Mean Corpuscular HGB Conc 30.4 g/dL (31.6-35.5); Mean Corpuscular Hemoglobin 31.7 pg (28.0-33.3); Mean Corpuscular Volume 104.5 fL (83.0-100.0); Mean Platelet Volume 12.2 fL (9.4-12.4); Monocytes # 0.9 K/mcL (0.0-1.3); Monocytes % 5.7 %; Neutrophils # 14.3 K/mcL (1.6-8.9); Platelet Count 147 K/mcL (140-400); Red Blood Count 3.78 M/mcL (3.82-4.97); Red Cell Distribution Width 13.8 % (11.5-14.5); White Blood Count 15.4 K/mcL (4.3-11.1)
[2020-12-19 07:06] LABS: VBG Ionized Calcium 1.19 mmol/L (1.15-1.35)
[2020-12-19 07:22] LABS: Alanine Aminotransferase 114 Units/L (7-52); Albumin 3.6 g/dL (3.5-5.7); Albumin/Globulin Ratio 1.6 (1.1-2.2); Alkaline Phosphatase 73 Units/L (34-104); Aspartate Amino Transferase 49 Units/L (13-39); BUN/Creatinine Ratio 57 (6-26); Blood Urea Nitrogen 47 mg/dL (8-23); Calcium 9.3 mg/dL (8.6-10.3); Carbon Dioxide 41 mEq/L (23-29); Chloride 101 mEq/L (98-107); Globulin 2.3 g/dL (2.4-3.5); Glucose 139 mg/dL (70-105); Magnesium 2.1 mg/dL (1.6-2.6); Osmolality,Calculated 315 (280-300); Potassium 3.6 mEq/L (3.5-5.1); Sodium 145 mEq/L (136-145); Total Protein 5.9 g/dL (6.4-8.9); eGFR For African Americans > 60 (> 60); eGFR For Non-African Americans > 60 (> 60)
[2020-12-19] MEDS ORDERED: *HR* LORazepam 1 MG TABLET PO PRN (07:33)
[2020-12-19] MEDS ORDERED: MethylPREDNISolone 40 MG/ML VIAL IVP SCH (09:00)
[2020-12-19] MEDS ORDERED: *HR* LORazepam 1 MG TABLET PO SCH (09:00)
[2020-12-19] MEDS: *HR* Amiodarone 200 MG TABLET PO SCH ×2 (09:02→21:31)
[2020-12-19] MEDS: DilTIAZem CD (24hr) 180 MG CAP.ER.24H PO SCH (09:02)
[2020-12-19] MEDS ORDERED: *HR* Heparin 5,000 UNIT/ML VIAL IVP PRN ×2 (09:05)
[2020-12-19] MEDS ORDERED: *HR* Heparin 5,000 UNIT/ML VIAL IVP ONE (09:05)
[2020-12-19] MEDS: Cholecalciferol (D-3) 1,000 UNIT (25MCG) TABLET PO SCH (10:13)
[2020-12-19] MEDS: Carbidopa/Levodopa 25/100 TABLET PO SCH ×3 (10:14→21:31)
[2020-12-19] MEDS: Folic Acid 1 MG TABLET PO SCH (10:14)
[2020-12-19] MEDS: Mirtazapine 15 MG TABLET PO SCH (10:14)
[2020-12-19] MEDS: Budesonide/Formoterol 80/4.5 1 PUFF INH IH SCH ×2 (11:38→20:11)
[2020-12-19] MEDS: D5% in Water 1,000 ML IVC SCH (13:38)
[2020-12-19] MEDS ORDERED: Bumetanide 1 MG/4 ML VIAL IVP ONE (15:04)
[2020-12-19 15:52] LABS: ABG Base Excess 12 mEq/L (-2 to 3); ABG HCO3 42 mEq/L (21-27); ABG Oxygen Saturation 99 % (95-98); ABG PCO2 88 mmHg (35-45); ABG PH 7.29 pH Units (7.32-7.45); ABG PO2 144 mmHg (85-104); ABG TCO2 45 mEq/L (20-26); Blood Gas Modality AVAPS; Blood Gas VT 450 cc
[2020-12-19] MEDS: MethylPREDNISolone 40 MG/ML VIAL IVP SCH ×2 (16:34→23:59)
[2020-12-19 17:18] LABS: Heparin anti-factor XA UFH 0.84 IU/mL (0.30-0.70)
[2020-12-19 17:19] LABS: INR 2.1
[2020-12-19] MEDS ORDERED: *HR* Warfarin 5 MG TABLET PO ONE (18:00)
[2020-12-19] MEDS ORDERED: Warfarin perPT PO PRN (18:00)
[2020-12-19 20:24] LABS: ABG Base Excess 15 mEq/L (-2 to 3); ABG HCO3 43 mEq/L (21-27); ABG Oxygen Saturation 97 % (95-98); ABG PCO2 72 mmHg (35-45); ABG PH 7.39 pH Units (7.32-7.45); ABG PO2 95 mmHg (85-104); ABG TCO2 46 mEq/L (20-26); Blood Gas VT 450 cc
[2020-12-19] MEDS: QUEtiapine Fumarate 25 MG TABLET PO SCH (21:30)
[2020-12-19] MEDS: Nystatin SUSP 5 ML UD.LIQ PO SCH (22:19)
[2020-12-20] MEDS: Ipratropium/Albuterol Neb 3 ML IH SCH ×6 (00:04→19:53)
[2020-12-20] MEDS: D5% in Water 1,000 ML IVC SCH ×2 (02:58→16:27)
[2020-12-20 02:59] LABS: Hematocrit 40.6 % (35.3-44.9); Hemoglobin 12.2 g/dL (11.5-15.4); Immature Granulocytes % 0.3 % (0-4); Lymphocytes # 0.1 K/mcL (0.6-4.6); Lymphocytes % 0.9 %; Mean Corpuscular Hemoglobin 31.4 pg (28.0-33.3); Mean Corpuscular Volume 104.6 fL (83.0-100.0); Mean Platelet Volume 12.5 fL (9.4-12.4); Monocytes # 0.5 K/mcL (0.0-1.3); Monocytes % 3.8 %; Neutrophils # 11.4 K/mcL (1.6-8.9); Platelet Count 128 K/mcL (140-400); Red Blood Count 3.88 M/mcL (3.82-4.97); Red Cell Distribution Width 13.4 % (11.5-14.5)
[2020-12-20 03:13] LABS: INR 1.9; Prothrombin Time 21.6 Seconds (9.4-12.1)
[2020-12-20 03:22] LABS: BUN/Creatinine Ratio 48 (6-26); Blood Urea Nitrogen 37 mg/dL (8-23); Calcium 8.8 mg/dL (8.6-10.3); Carbon Dioxide 40 mEq/L (23-29); Chloride 97 mEq/L (98-107); Glucose 198 mg/dL (70-105); Magnesium 1.9 mg/dL (1.6-2.6); Osmolality,Calculated 310 (280-300); Potassium 3.7 mEq/L (3.5-5.1); Sodium 143 mEq/L (136-145); eGFR For African Americans > 60 (> 60); eGFR For Non-African Americans > 60 (> 60)
[2020-12-20 03:48] LABS: Platelet Estimate Normal (Normal)
[2020-12-20 04:21] LABS: ABG Base Excess 15 mEq/L (-2 to 3); ABG HCO3 45 mEq/L (21-27); ABG Oxygen Saturation 97 % (95-98); ABG PCO2 86 mmHg (35-45); ABG PH 7.33 pH Units (7.32-7.45); ABG PO2 109 mmHg (85-104); ABG TCO2 48 mEq/L (20-26); Blood Gas VT 450 cc
[2020-12-20] MEDS: Pantoprazole 40 MG VIAL IVP SCH (05:57)
[2020-12-20] MEDS: Budesonide/Formoterol 80/4.5 1 PUFF INH IH SCH ×2 (07:22→19:54)
[2020-12-20] MEDS: Nystatin SUSP 5 ML UD.LIQ PO SCH ×4 (10:12→21:16)
[2020-12-20] MEDS: MethylPREDNISolone 40 MG/ML VIAL IVP SCH ×2 (10:12→16:28)
[2020-12-20] MEDS: Mirtazapine 15 MG TABLET PO SCH (10:13)
[2020-12-20] MEDS: Folic Acid 1 MG TABLET PO SCH (10:13)
[2020-12-20] MEDS: DilTIAZem CD (24hr) 180 MG CAP.ER.24H PO SCH (10:13)
[2020-12-20] MEDS: Carbidopa/Levodopa 25/100 TABLET PO SCH ×3 (10:13→21:17)
[2020-12-20] MEDS: *HR* Amiodarone 200 MG TABLET PO SCH ×2 (10:13→21:16)
[2020-12-20] MEDS: Cholecalciferol (D-3) 1,000 UNIT (25MCG) TABLET PO SCH (10:13)
[2020-12-20] MEDS: Heparin 25,000UNIT/250ML 1/2NS 25,000 UNIT/250 ML IV.SOLN IVC SCH (12:00)
[2020-12-20] MEDS ORDERED: *HR* Warfarin 10 MG TABLET PO ONE (18:00)
[2020-12-20] MEDS: *HR* LORazepam 2 MG/ML VIAL IVP PRN (18:17)
[2020-12-20] MEDS: QUEtiapine Fumarate 25 MG TABLET PO SCH (21:16)
[2020-12-21] MEDS: Ipratropium/Albuterol Neb 3 ML IH SCH ×7 (00:02→23:10)
[2020-12-21] MEDS: MethylPREDNISolone 40 MG/ML VIAL IVP SCH ×4 (00:08→20:33)
[2020-12-21] MEDS: D5% in Water 1,000 ML IVC SCH ×2 (05:03→19:21)
[2020-12-21] MEDS: Pantoprazole 40 MG VIAL IVP SCH (05:32)
[2020-12-21 07:25] LABS: Basophils % 0.1 %; Hematocrit 40.5 % (35.3-44.9); Hemoglobin 12.5 g/dL (11.5-15.4); Immature Granulocytes % 0.4 % (0-4); Lymphocytes # 0.1 K/mcL (0.6-4.6); Mean Corpuscular HGB Conc 30.9 g/dL (31.6-35.5); Mean Corpuscular Hemoglobin 32.5 pg (28.0-33.3); Mean Corpuscular Volume 105.2 fL (83.0-100.0); Mean Platelet Volume 12.5 fL (9.4-12.4); Monocytes # 0.6 K/mcL (0.0-1.3); Monocytes % 4.2 %; Neutrophils # 13.2 K/mcL (1.6-8.9); Platelet Count 132 K/mcL (140-400); Red Blood Count 3.85 M/mcL (3.82-4.97); Red Cell Distribution Width 13.2 % (11.5-14.5); Segmented Neutrophils % 94.3 %
[2020-12-21 07:32] LABS: INR 2.4; Prothrombin Time 26.6 Seconds (9.4-12.1)
[2020-12-21] MEDS: Budesonide/Formoterol 80/4.5 1 PUFF INH IH SCH ×2 (07:34→19:33)
[2020-12-21] MEDS: Mirtazapine 15 MG TABLET PO SCH (07:36)
[2020-12-21] MEDS: Folic Acid 1 MG TABLET PO SCH (07:36)
[2020-12-21] MEDS: DilTIAZem CD (24hr) 180 MG CAP.ER.24H PO SCH (07:36)
[2020-12-21] MEDS: Carbidopa/Levodopa 25/100 TABLET PO SCH ×3 (07:37→20:32)
[2020-12-21] MEDS: Cholecalciferol (D-3) 1,000 UNIT (25MCG) TABLET PO SCH (07:37)
[2020-12-21] MEDS: *HR* Amiodarone 200 MG TABLET PO SCH ×2 (07:37→20:32)
[2020-12-21] MEDS: Nystatin SUSP 5 ML UD.LIQ PO SCH ×4 (07:37→20:32)
[2020-12-21 07:52] LABS: BUN/Creatinine Ratio 46 (6-26); Blood Urea Nitrogen 31 mg/dL (8-23); Calcium 8.9 mg/dL (8.6-10.3); Carbon Dioxide 39 mEq/L (23-29); Chloride 97 mEq/L (98-107); Glucose 193 mg/dL (70-105); Osmolality,Calculated 302 (280-300); Phosphorous 2.2 mg/dL (2.7-4.5); Sodium 140 mEq/L (136-145); eGFR For African Americans > 60 (> 60); eGFR For Non-African Americans > 60 (> 60)
[2020-12-21] MEDS: Heparin 25,000UNIT/250ML 1/2NS 25,000 UNIT/250 ML IV.SOLN IVC SCH (14:45)
[2020-12-21] MEDS ORDERED: Bumetanide 1 MG TABLET PO SCH (16:45)
[2020-12-21] MEDS: Bumetanide 1 MG TABLET PO SCH (17:33)
[2020-12-21] MEDS ORDERED: *HR* Warfarin 5 MG TABLET PO ONE (18:00)
[2020-12-21] MEDS ORDERED: *HR* LORazepam 1 MG TABLET PO ONE (20:22)
[2020-12-21] MEDS: QUEtiapine Fumarate 25 MG TABLET PO SCH (20:32)
[2020-12-22] MEDS: Ipratropium/Albuterol Neb 3 ML IH SCH ×6 (03:35→23:29)
[2020-12-22] MEDS: Budesonide/Formoterol 80/4.5 1 PUFF INH IH SCH ×2 (07:19→19:24)
[2020-12-22] MEDS: DilTIAZem CD (24hr) 180 MG CAP.ER.24H PO SCH (08:02)
[2020-12-22] MEDS: Folic Acid 1 MG TABLET PO SCH (08:02)
[2020-12-22] MEDS: Carbidopa/Levodopa 25/100 TABLET PO SCH ×3 (08:03→20:54)
[2020-12-22] MEDS: Bumetanide 1 MG TABLET PO SCH (08:03)
[2020-12-22] MEDS: Mirtazapine 15 MG TABLET PO SCH (08:03)
[2020-12-22] MEDS: *HR* Amiodarone 200 MG TABLET PO SCH ×2 (08:03→20:54)
[2020-12-22] MEDS: Cholecalciferol (D-3) 1,000 UNIT (25MCG) TABLET PO SCH (08:06)
[2020-12-22] MEDS: MethylPREDNISolone 40 MG/ML VIAL IVP SCH ×2 (08:06→20:55)
[2020-12-22] MEDS: Nystatin SUSP 5 ML UD.LIQ PO SCH ×4 (08:06→20:54)
[2020-12-22] MEDS: D5% in Water 1,000 ML IVC SCH ×2 (10:30→22:41)
[2020-12-22 11:16] LABS: Hematocrit 40.6 % (35.3-44.9); Hemoglobin 12.6 g/dL (11.5-15.4); Mean Corpuscular Hemoglobin 31.7 pg (28.0-33.3); Mean Platelet Volume 12.3 fL (9.4-12.4); Platelet Count 153 K/mcL (140-400); Red Blood Count 3.98 M/mcL (3.82-4.97); Red Cell Distribution Width 13.2 % (11.5-14.5); White Blood Count 16.9 K/mcL (4.3-11.1)
[2020-12-22 11:28] LABS: Heparin anti-factor XA UFH 0.32 IU/mL (0.30-0.70); INR 1.6; Prothrombin Time 18.5 Seconds (9.4-12.1)
[2020-12-22 11:42] LABS: BUN/Creatinine Ratio 40 (6-26); Blood Urea Nitrogen 30 mg/dL (8-23); Carbon Dioxide > 45 mEq/L (23-29); Chloride 95 mEq/L (98-107); Glucose 172 mg/dL (70-105); Magnesium 1.9 mg/dL (1.6-2.6); Osmolality,Calculated 304 (280-300); Phosphorous 1.8 mg/dL (2.7-4.5); Potassium 3.8 mEq/L (3.5-5.1); Sodium 142 mEq/L (136-145); eGFR For African Americans > 60 (> 60); eGFR For Non-African Americans > 60 (> 60)
[2020-12-22 12:10] LABS: Macrocytosis Present (Not Present); Neutrophils # 16.9 K/mcL (1.6-8.9); Platelet Estimate Normal (Normal)
[2020-12-22] MEDS: *HR* LORazepam 1 MG TABLET PO PRN ×2 (17:22→20:53)
[2020-12-22] MEDS ORDERED: *HR* Warfarin 10 MG TABLET PO ONE (18:00)
[2020-12-22] MEDS: QUEtiapine Fumarate 25 MG TABLET PO SCH (20:54)
[2020-12-23] MEDS: Heparin 25,000UNIT/250ML 1/2NS 25,000 UNIT/250 ML IV.SOLN IVC SCH (01:10)
[2020-12-23] MEDS: Ipratropium/Albuterol Neb 3 ML IH SCH ×6 (03:49→23:22)
[2020-12-23 05:10] LABS: Basophils % 0.1 %; Hemoglobin 12.3 g/dL (11.5-15.4); Immature Granulocytes % 0.8 % (0-4); Lymphocytes # 0.2 K/mcL (0.6-4.6); Lymphocytes % 1.1 %; Mean Corpuscular HGB Conc 30.8 g/dL (31.6-35.5); Mean Corpuscular Hemoglobin 31.6 pg (28.0-33.3); Mean Corpuscular Volume 102.8 fL (83.0-100.0); Mean Platelet Volume 12.5 fL (9.4-12.4); Monocytes # 0.6 K/mcL (0.0-1.3); Monocytes % 3.3 %; Neutrophils # 15.9 K/mcL (1.6-8.9); Platelet Count 157 K/mcL (140-400); Red Blood Count 3.89 M/mcL (3.82-4.97); Red Cell Distribution Width 13.2 % (11.5-14.5); Segmented Neutrophils % 94.7 %; White Blood Count 16.8 K/mcL (4.3-11.1)
[2020-12-23 05:24] LABS: INR 1.8
[2020-12-23 05:27] LABS: BUN/Creatinine Ratio 40 (6-26); Blood Urea Nitrogen 31 mg/dL (8-23); Calcium 8.5 mg/dL (8.6-10.3); Carbon Dioxide 44 mEq/L (23-29); Chloride 94 mEq/L (98-107); Glucose 195 mg/dL (70-105); Magnesium 1.9 mg/dL (1.6-2.6); Osmolality,Calculated 302 (280-300); Phosphorous 2.5 mg/dL (2.7-4.5); Sodium 140 mEq/L (136-145); eGFR For African Americans > 60 (> 60); eGFR For Non-African Americans > 60 (> 60)
[2020-12-23] MEDS: MethylPREDNISolone 40 MG/ML VIAL IVP SCH ×2 (09:37→22:19)
[2020-12-23] MEDS: Nystatin SUSP 5 ML UD.LIQ PO SCH ×4 (09:38→22:19)
[2020-12-23] MEDS: Bumetanide 1 MG TABLET PO SCH (09:38)
[2020-12-23] MEDS: Mirtazapine 15 MG TABLET PO SCH (09:40)
[2020-12-23] MEDS: DilTIAZem CD (24hr) 180 MG CAP.ER.24H PO SCH (09:40)
[2020-12-23] MEDS: *HR* Amiodarone 200 MG TABLET PO SCH ×2 (09:41→22:19)
[2020-12-23] MEDS: Cholecalciferol (D-3) 1,000 UNIT (25MCG) TABLET PO SCH (09:41)
[2020-12-23] MEDS: Folic Acid 1 MG TABLET PO SCH (09:41)
[2020-12-23] MEDS: Carbidopa/Levodopa 25/100 TABLET PO SCH ×3 (09:41→22:19)
[2020-12-23] MEDS: Budesonide/Formoterol 80/4.5 1 PUFF INH IH SCH ×2 (11:08→19:33)
[2020-12-23] MEDS ORDERED: *HR* Dextrose 50 % in Water (Vial) 50 ML VIAL IVP PRN (13:22)
[2020-12-23] MEDS ORDERED: Dextrose Gel 15 GM/37.5 ML TUBE PO PRN ×2 (13:22)
[2020-12-23] MEDS ORDERED: D5% in Water 1,000 ML IVC PRN (13:22)
[2020-12-23] MEDS: *HR* LORazepam 1 MG TABLET PO PRN ×2 (14:56→22:19)
[2020-12-23] MEDS: Bumetanide 1 MG/4 ML VIAL IVP SCH (17:07)
[2020-12-23] MEDS: Insulin LISPRO 300 UNITS/3 ML VIAL SUBQ SCH (17:08)
[2020-12-23] MEDS ORDERED: *HR* Warfarin 10 MG TABLET PO ONE (18:00)
[2020-12-23] MEDS: QUEtiapine Fumarate 25 MG TABLET PO SCH (22:19)
[2020-12-24] MEDS: Ipratropium/Albuterol Neb 3 ML IH SCH ×5 (03:45→20:02)
[2020-12-24 04:48] LABS: Basophils % 0.1 %; Hematocrit 38.8 % (35.3-44.9); Hemoglobin 11.9 g/dL (11.5-15.4); Immature Granulocytes % 0.7 % (0-4); Lymphocytes # 0.1 K/mcL (0.6-4.6); Lymphocytes % 0.5 %; Mean Corpuscular HGB Conc 30.7 g/dL (31.6-35.5); Mean Corpuscular Hemoglobin 31.3 pg (28.0-33.3); Mean Corpuscular Volume 102.1 fL (83.0-100.0); Mean Platelet Volume 12.3 fL (9.4-12.4); Monocytes # 0.5 K/mcL (0.0-1.3); Monocytes % 2.9 %; Neutrophils # 17.9 K/mcL (1.6-8.9); Platelet Count 171 K/mcL (140-400); Red Cell Distribution Width 13.2 % (11.5-14.5); Segmented Neutrophils % 95.8 %; White Blood Count 18.7 K/mcL (4.3-11.1)
[2020-12-24 05:02] LABS: INR 2.9; Prothrombin Time 32.2 Seconds (9.4-12.1)
[2020-12-24 05:09] LABS: BUN/Creatinine Ratio 39 (6-26); Blood Urea Nitrogen 33 mg/dL (8-23); Calcium 8.7 mg/dL (8.6-10.3); Carbon Dioxide 44 mEq/L (23-29); Chloride 91 mEq/L (98-107); Glucose 206 mg/dL (70-105); Magnesium 1.9 mg/dL (1.6-2.6); Osmolality,Calculated 307 (280-300); Phosphorous 2.4 mg/dL (2.7-4.5); Potassium 4.2 mEq/L (3.5-5.1); Sodium 142 mEq/L (136-145); eGFR For African Americans > 60 (> 60); eGFR For Non-African Americans > 60 (> 60)
[2020-12-24 05:36] LABS: ABG Base Excess 17 mEq/L (-2 to 3); ABG HCO3 44 mEq/L (21-27); ABG Oxygen Saturation 83 % (95-98); ABG PCO2 63 mmHg (35-45); ABG PH 7.45 pH Units (7.32-7.45); ABG PO2 47 mmHg (85-104); ABG TCO2 46 mEq/L (20-26)
[2020-12-24] MEDS: Budesonide/Formoterol 80/4.5 1 PUFF INH IH SCH ×2 (07:34→20:02)
[2020-12-24] MEDS: DilTIAZem CD (24hr) 180 MG CAP.ER.24H PO SCH (08:22)
[2020-12-24] MEDS: Cholecalciferol (D-3) 1,000 UNIT (25MCG) TABLET PO SCH (08:23)
[2020-12-24] MEDS: Carbidopa/Levodopa 25/100 TABLET PO SCH ×3 (08:23→20:05)
[2020-12-24] MEDS: Folic Acid 1 MG TABLET PO SCH (08:23)
[2020-12-24] MEDS: *HR* Amiodarone 200 MG TABLET PO SCH ×2 (08:23→20:05)
[2020-12-24] MEDS: Nystatin SUSP 5 ML UD.LIQ PO SCH ×4 (08:24→20:05)
[2020-12-24] MEDS: Mirtazapine 15 MG TABLET PO SCH (08:24)
[2020-12-24] MEDS: Bumetanide 1 MG/4 ML VIAL IVP SCH ×2 (08:24→17:00)
[2020-12-24] MEDS: MethylPREDNISolone 40 MG/ML VIAL IVP SCH ×2 (08:25→20:07)
[2020-12-24] MEDS: Insulin LISPRO 300 UNITS/3 ML VIAL SUBQ SCH ×3 (08:25→16:43)
[2020-12-24] MEDS ORDERED: *HR* Digoxin 0.5 MG/2 ML AMPUL IVP ONE (10:54)
[2020-12-24] MEDS: *HR* LORazepam 1 MG TABLET PO PRN (13:44)
[2020-12-24] MEDS ORDERED: *HR* Warfarin 5 MG TABLET PO ONE (18:00)
[2020-12-24] MEDS: QUEtiapine Fumarate 25 MG TABLET PO SCH (20:05)
[2020-12-25] MEDS: Ipratropium/Albuterol Neb 3 ML IH SCH ×7 (00:10→23:16)
[2020-12-25 05:35] LABS: INR 3.7; Prothrombin Time 41.7 Seconds (9.4-12.1)
[2020-12-25 05:46] LABS: Basophils % 0.1 %; Hematocrit 38.8 % (35.3-44.9); Immature Granulocytes % 0.7 % (0-4); Lymphocytes # 0.1 K/mcL (0.6-4.6); Lymphocytes % 0.5 %; Mean Corpuscular HGB Conc 30.9 g/dL (31.6-35.5); Mean Corpuscular Hemoglobin 32.6 pg (28.0-33.3); Mean Corpuscular Volume 105.4 fL (83.0-100.0); Mean Platelet Volume 12.2 fL (9.4-12.4); Monocytes # 0.5 K/mcL (0.0-1.3); Monocytes % 2.5 %; Neutrophils # 20.2 K/mcL (1.6-8.9); Platelet Count 185 K/mcL (140-400); Red Blood Count 3.68 M/mcL (3.82-4.97); Red Cell Distribution Width 13.4 % (11.5-14.5); Segmented Neutrophils % 96.2 %
[2020-12-25 05:58] LABS: BUN/Creatinine Ratio 49 (6-26); Blood Urea Nitrogen 38 mg/dL (8-23); Calcium 8.5 mg/dL (8.6-10.3); Carbon Dioxide > 45 mEq/L (23-29); Chloride 94 mEq/L (98-107); Glucose 145 mg/dL (70-105); Osmolality,Calculated 312 (280-300); Phosphorous 3.8 mg/dL (2.7-4.5); Potassium 4.4 mEq/L (3.5-5.1); Sodium 145 mEq/L (136-145); eGFR For African Americans > 60 (> 60); eGFR For Non-African Americans > 60 (> 60)
[2020-12-25] MEDS: Budesonide/Formoterol 80/4.5 1 PUFF INH IH SCH ×2 (07:10→19:41)
[2020-12-25] MEDS: D5% in Water 1,000 ML IVC SCH (07:51)
[2020-12-25] MEDS: Heparin 25,000UNIT/250ML 1/2NS 25,000 UNIT/250 ML IV.SOLN IVC SCH (07:51)
[2020-12-25] MEDS ORDERED: Perflutren Lipid Microsphere 1.3 ML in 0.9 % Sodium Chloride 8.7 ML IVP PRN (08:10)
[2020-12-25] MEDS: Insulin LISPRO 300 UNITS/3 ML VIAL SUBQ SCH ×3 (10:02→16:34)
[2020-12-25] MEDS: DilTIAZem CD (24hr) 180 MG CAP.ER.24H PO SCH (10:10)
[2020-12-25] MEDS: Carbidopa/Levodopa 25/100 TABLET PO SCH ×3 (10:11→21:25)
[2020-12-25] MEDS: Mirtazapine 15 MG TABLET PO SCH (10:11)
[2020-12-25] MEDS: *HR* Amiodarone 200 MG TABLET PO SCH ×2 (10:11→21:26)
[2020-12-25] MEDS: Folic Acid 1 MG TABLET PO SCH (10:11)
[2020-12-25] MEDS: Cholecalciferol (D-3) 1,000 UNIT (25MCG) TABLET PO SCH (10:12)
[2020-12-25] MEDS: Bumetanide 1 MG/4 ML VIAL IVP SCH ×2 (10:12→16:25)
[2020-12-25] MEDS: Nystatin SUSP 5 ML UD.LIQ PO SCH ×4 (10:12→21:26)
[2020-12-25] MEDS: MethylPREDNISolone 40 MG/ML VIAL IVP SCH (10:13)
[2020-12-25] MEDS: Metoprolol XL (24 HR) Succ 25 MG TAB.ER.24H PO SCH (16:25)
[2020-12-25] MEDS: Sennosides/Docusate Sodium TABLET PO SCH (16:27)
[2020-12-25] MEDS: *HR* LORazepam 1 MG TABLET PO PRN (18:14)
[2020-12-25] MEDS: QUEtiapine Fumarate 25 MG TABLET PO SCH (21:25)
[2020-12-26] MEDS: Ipratropium/Albuterol Neb 3 ML IH SCH ×6 (04:02→22:58)
[2020-12-26 06:15] LABS: Basophils % 0.1 %; Hematocrit 37.3 % (35.3-44.9); Hemoglobin 11.5 g/dL (11.5-15.4); Lymphocytes # 0.2 K/mcL (0.6-4.6); Lymphocytes % 0.8 %; Mean Corpuscular HGB Conc 30.8 g/dL (31.6-35.5); Mean Corpuscular Hemoglobin 31.6 pg (28.0-33.3); Mean Corpuscular Volume 102.5 fL (83.0-100.0); Mean Platelet Volume 11.7 fL (9.4-12.4); Monocytes # 1.2 K/mcL (0.0-1.3); Monocytes % 5.2 %; Neutrophils # 21.9 K/mcL (1.6-8.9); Platelet Count 191 K/mcL (140-400); Red Blood Count 3.64 M/mcL (3.82-4.97); Red Cell Distribution Width 13.2 % (11.5-14.5); Segmented Neutrophils % 92.9 %; White Blood Count 23.6 K/mcL (4.3-11.1)
[2020-12-26 06:22] LABS: INR 3.2; Prothrombin Time 35.7 Seconds (9.4-12.1)
[2020-12-26 06:37] LABS: Platelet Estimate Normal (Normal)
[2020-12-26 06:40] LABS: BUN/Creatinine Ratio 54 (6-26); Blood Urea Nitrogen 46 mg/dL (8-23); Calcium 8.9 mg/dL (8.6-10.3); Carbon Dioxide > 45 mEq/L (23-29); Chloride 90 mEq/L (98-107); Glucose 129 mg/dL (70-105); Osmolality,Calculated 310 (280-300); Phosphorous 3.4 mg/dL (2.7-4.5); Potassium 4.5 mEq/L (3.5-5.1); Sodium 143 mEq/L (136-145); eGFR For African Americans > 60 (> 60); eGFR For Non-African Americans > 60 (> 60)
[2020-12-26] MEDS: Budesonide/Formoterol 80/4.5 1 PUFF INH IH SCH ×2 (07:12→20:00)
[2020-12-26] MEDS: Insulin LISPRO 300 UNITS/3 ML VIAL SUBQ SCH ×3 (08:39→17:08)
[2020-12-26] MEDS: Folic Acid 1 MG TABLET PO SCH (08:42)
[2020-12-26] MEDS: Metoprolol XL (24 HR) Succ 25 MG TAB.ER.24H PO SCH (08:42)
[2020-12-26] MEDS: Sennosides/Docusate Sodium TABLET PO SCH (08:42)
[2020-12-26] MEDS: Cholecalciferol (D-3) 1,000 UNIT (25MCG) TABLET PO SCH (08:42)
[2020-12-26] MEDS: Aspirin Enteric Coated 81 MG Tablet PO SCH (08:42)
[2020-12-26] MEDS: Mirtazapine 15 MG TABLET PO SCH (08:42)
[2020-12-26] MEDS: predniSONE 20 MG TABLET PO SCH (08:43)
[2020-12-26] MEDS: Nystatin SUSP 5 ML UD.LIQ PO SCH ×4 (08:43→20:13)
[2020-12-26] MEDS: Carbidopa/Levodopa 25/100 TABLET PO SCH ×3 (08:43→20:13)
[2020-12-26] MEDS: DilTIAZem CD (24hr) 180 MG CAP.ER.24H PO SCH (08:43)
[2020-12-26] MEDS: *HR* Amiodarone 200 MG TABLET PO SCH ×2 (08:43→20:13)
[2020-12-26] MEDS: *HR* LORazepam 1 MG TABLET PO PRN (17:07)
[2020-12-26] MEDS ORDERED: *HR* Warfarin 5 MG TABLET PO ONE (18:00)
[2020-12-26] MEDS: QUEtiapine Fumarate 25 MG TABLET PO SCH (20:12)
[2020-12-27 02:55] LABS: Basophils % 0.1 %; Hematocrit 37.8 % (35.3-44.9); Hemoglobin 11.3 g/dL (11.5-15.4); Immature Granulocytes % 1.2 % (0-4); Lymphocytes # 0.3 K/mcL (0.6-4.6); Lymphocytes % 1.5 %; Mean Corpuscular HGB Conc 29.9 g/dL (31.6-35.5); Mean Corpuscular Hemoglobin 31.1 pg (28.0-33.3); Mean Corpuscular Volume 104.1 fL (83.0-100.0); Mean Platelet Volume 11.9 fL (9.4-12.4); Monocytes # 1.2 K/mcL (0.0-1.3); Monocytes % 5.3 %; Neutrophils # 20.3 K/mcL (1.6-8.9); Platelet Count 196 K/mcL (140-400); Red Blood Count 3.63 M/mcL (3.82-4.97); Red Cell Distribution Width 13.1 % (11.5-14.5); Segmented Neutrophils % 91.9 %; White Blood Count 22.1 K/mcL (4.3-11.1)
[2020-12-27 03:00] LABS: INR 2.4; Prothrombin Time 27.5 Seconds (9.4-12.1)
[2020-12-27 03:20] LABS: BUN/Creatinine Ratio 60 (6-26); Blood Urea Nitrogen 48 mg/dL (8-23); Calcium 8.6 mg/dL (8.6-10.3); Carbon Dioxide > 45 mEq/L (23-29); Chloride 93 mEq/L (98-107); Glucose 122 mg/dL (70-105); Osmolality,Calculated 310 (280-300); Phosphorous 2.9 mg/dL (2.7-4.5); Potassium 4.3 mEq/L (3.5-5.1); Sodium 143 mEq/L (136-145); eGFR For African Americans > 60 (> 60); eGFR For Non-African Americans > 60 (> 60)
[2020-12-27] MEDS: Ipratropium/Albuterol Neb 3 ML IH SCH ×6 (04:15→23:43)
[2020-12-27] MEDS ORDERED: acetaZOLAMIDE 250 MG TABLET PO ONE (07:12)
[2020-12-27] MEDS: Insulin LISPRO 300 UNITS/3 ML VIAL SUBQ SCH ×3 (07:31→16:43)
[2020-12-27] MEDS: Budesonide/Formoterol 80/4.5 1 PUFF INH IH SCH ×2 (07:40→19:37)
[2020-12-27] MEDS: Folic Acid 1 MG TABLET PO SCH (07:59)
[2020-12-27] MEDS: Aspirin Enteric Coated 81 MG Tablet PO SCH (07:59)
[2020-12-27] MEDS: Cholecalciferol (D-3) 1,000 UNIT (25MCG) TABLET PO SCH (08:00)
[2020-12-27] MEDS: Sennosides/Docusate Sodium TABLET PO SCH (08:00)
[2020-12-27] MEDS: Mirtazapine 15 MG TABLET PO SCH (08:00)
[2020-12-27] MEDS: *HR* Amiodarone 200 MG TABLET PO SCH ×2 (08:00→21:27)
[2020-12-27] MEDS: Metoprolol XL (24 HR) Succ 25 MG TAB.ER.24H PO SCH (08:00)
[2020-12-27] MEDS: predniSONE 20 MG TABLET PO SCH (08:00)
[2020-12-27] MEDS: Carbidopa/Levodopa 25/100 TABLET PO SCH ×3 (08:00→21:28)
[2020-12-27] MEDS: DilTIAZem CD (24hr) 180 MG CAP.ER.24H PO SCH (08:00)
[2020-12-27] MEDS: Nystatin SUSP 5 ML UD.LIQ PO SCH ×4 (08:01→21:28)
[2020-12-27] MEDS ORDERED: Lactulose Oral Soln 20 GM/30 ML UDC PO PRN (09:00)
[2020-12-27 09:29] LABS: ABG Base Excess 17 mEq/L (-2 to 3); ABG HCO3 44 mEq/L (21-27); ABG Oxygen Saturation 84 % (95-98); ABG PCO2 63 mmHg (35-45); ABG PH 7.45 pH Units (7.32-7.45); ABG PO2 49 mmHg (85-104); ABG TCO2 46 mEq/L (20-26)
[2020-12-27 16:32] LABS: ABG Base Excess 14 mEq/L (-2 to 3); ABG HCO3 41 mEq/L (21-27); ABG Oxygen Saturation 91 % (95-98); ABG PCO2 66 mmHg (35-45); ABG PO2 65 mmHg (85-104); ABG TCO2 43 mEq/L (20-26); Blood Gas Pressure Support 6 cm H2O
[2020-12-27] MEDS ORDERED: *HR* Warfarin 5 MG TABLET PO ONE (18:00)
[2020-12-27] MEDS: QUEtiapine Fumarate 25 MG TABLET PO SCH (21:27)
[2020-12-27] MEDS: *HR* LORazepam 1 MG TABLET PO PRN (21:27)
[2020-12-28] MEDS: Ipratropium/Albuterol Neb 3 ML IH SCH ×6 (04:31→23:00)
[2020-12-28 04:51] LABS: INR 1.7; Prothrombin Time 18.9 Seconds (9.4-12.1)
[2020-12-28 05:11] LABS: BUN/Creatinine Ratio 54 (6-26); Blood Urea Nitrogen 41 mg/dL (8-23); Calcium 8.9 mg/dL (8.6-10.3); Carbon Dioxide 43 mEq/L (23-29); Chloride 96 mEq/L (98-107); Glucose 111 mg/dL (70-105); Magnesium 2.2 mg/dL (1.6-2.6); Osmolality,Calculated 303 (280-300); Phosphorous 4.1 mg/dL (2.7-4.5); Potassium 4.7 mEq/L (3.5-5.1); Sodium 141 mEq/L (136-145); eGFR For African Americans > 60 (> 60); eGFR For Non-African Americans > 60 (> 60)
[2020-12-28] MEDS: Budesonide/Formoterol 80/4.5 1 PUFF INH IH SCH ×2 (07:29→19:49)
[2020-12-28] MEDS ORDERED: *HR* Heparin 5,000 UNIT/ML VIAL IVP ONE (07:35)
[2020-12-28] MEDS ORDERED: *HR* Heparin 5,000 UNIT/ML VIAL IVP PRN ×2 (07:35)
[2020-12-28] MEDS ORDERED: Bumetanide 1 MG TABLET PO SCH (08:00)
[2020-12-28] MEDS: Insulin LISPRO 300 UNITS/3 ML VIAL SUBQ SCH ×3 (08:34→16:51)
[2020-12-28] MEDS: predniSONE 20 MG TABLET PO SCH (08:42)
[2020-12-28] MEDS: Aspirin Enteric Coated 81 MG Tablet PO SCH (08:43)
[2020-12-28] MEDS: *HR* Amiodarone 200 MG TABLET PO SCH ×2 (08:43→20:40)
[2020-12-28] MEDS: Carbidopa/Levodopa 25/100 TABLET PO SCH ×3 (08:43→20:40)
[2020-12-28] MEDS: Folic Acid 1 MG TABLET PO SCH (08:43)
[2020-12-28] MEDS: Mirtazapine 15 MG TABLET PO SCH (08:44)
[2020-12-28] MEDS: Metoprolol XL (24 HR) Succ 25 MG TAB.ER.24H PO SCH (08:45)
[2020-12-28] MEDS: DilTIAZem CD (24hr) 180 MG CAP.ER.24H PO SCH (08:45)
[2020-12-28] MEDS: Sennosides/Docusate Sodium TABLET PO SCH (08:45)
[2020-12-28] MEDS: Nystatin SUSP 5 ML UD.LIQ PO SCH ×4 (08:45→20:40)
[2020-12-28] MEDS: Cholecalciferol (D-3) 1,000 UNIT (25MCG) TABLET PO SCH (08:45)
[2020-12-28] MEDS: Heparin 25,000UNIT/250ML 1/2NS 25,000 UNIT/250 ML IV.SOLN IVC SCH (08:47)
[2020-12-28] MEDS ORDERED: *HR* Warfarin 7.5 MG TABLET PO ONE (18:00)
[2020-12-28] MEDS: Warfarin perPT PO SCH (18:11)
[2020-12-28] MEDS: QUEtiapine Fumarate 25 MG TABLET PO SCH (20:40)
[2020-12-29 04:08] LABS: Hematocrit 33.9 % (35.3-44.9); Hemoglobin 10.5 g/dL (11.5-15.4)
[2020-12-29] MEDS: Ipratropium/Albuterol Neb 3 ML IH SCH ×6 (04:17→23:15)
[2020-12-29 04:21] LABS: INR 1.7; Prothrombin Time 19.5 Seconds (9.4-12.1)
[2020-12-29] MEDS: Budesonide/Formoterol 80/4.5 1 PUFF INH IH SCH ×2 (07:36→19:49)
[2020-12-29] MEDS: Cholecalciferol (D-3) 1,000 UNIT (25MCG) TABLET PO SCH (10:58)
[2020-12-29] MEDS: Folic Acid 1 MG TABLET PO SCH (10:58)
[2020-12-29] MEDS: predniSONE 20 MG TABLET PO SCH (10:58)
[2020-12-29] MEDS: Nystatin SUSP 5 ML UD.LIQ PO SCH ×4 (10:59→20:37)
[2020-12-29] MEDS: Aspirin Enteric Coated 81 MG Tablet PO SCH (10:59)
[2020-12-29] MEDS: Mirtazapine 15 MG TABLET PO SCH (10:59)
[2020-12-29] MEDS: Carbidopa/Levodopa 25/100 TABLET PO SCH ×3 (10:59→20:37)
[2020-12-29] MEDS: Sennosides/Docusate Sodium TABLET PO SCH (10:59)
[2020-12-29] MEDS: *HR* Amiodarone 200 MG TABLET PO SCH ×2 (10:59→20:37)
[2020-12-29] MEDS: Insulin LISPRO 300 UNITS/3 ML VIAL SUBQ SCH ×3 (11:00→17:15)
[2020-12-29] MEDS: Metoprolol XL (24 HR) Succ 25 MG TAB.ER.24H PO SCH (11:10)
[2020-12-29] MEDS: DilTIAZem CD (24hr) 180 MG CAP.ER.24H PO SCH (11:18)
[2020-12-29] MEDS: Heparin 25,000UNIT/250ML 1/2NS 25,000 UNIT/250 ML IV.SOLN IVC SCH (15:13)
[2020-12-29] MEDS ORDERED: *HR* Digoxin 0.5 MG/2 ML AMPUL IVP ONE (15:34)
[2020-12-29] MEDS: Warfarin perPT PO SCH (17:16)
[2020-12-29] MEDS ORDERED: *HR* Warfarin 7.5 MG TABLET PO ONE (18:00)
[2020-12-29] MEDS: *HR* LORazepam 1 MG TABLET PO PRN (19:33)
[2020-12-29] MEDS: QUEtiapine Fumarate 25 MG TABLET PO SCH (20:36)
[2020-12-29 21:53] LABS: Bacteria,Urine Few per hpf (None-Few); Bilirubin,Urine Negative (Negative); Blood,Urine Moderate (Negative); Budding Yeast,Urine Few per hpf (None Seen); Clarity,Urine Cloudy (Clear); Color,Urine Red (Yellow); Glucose,Urine (UA) Normal (Normal); Ketones,Urine Negative (Negative); Leukocyte Esterase,Urine Small (Negative); Nitrite,Urine Negative (Negative); Protein,Urine 100 mg/dL (Neg-Trace); RBC,Urine TNTC per hpf (0-3); Urobilinogen,Urine Normal (Normal); WBC,Urine TNTC per hpf (0-3)
[2020-12-30] MEDS: Ipratropium/Albuterol Neb 3 ML IH SCH ×6 (03:41→23:46)
[2020-12-30 04:17] LABS: Basophils % 0.1 %; Eosinophils % 0.2 %; Hematocrit 31.9 % (35.3-44.9); Hemoglobin 10.1 g/dL (11.5-15.4); Immature Granulocytes % 0.7 % (0-4); Lymphocytes # 0.3 K/mcL (0.6-4.6); Lymphocytes % 2.4 %; Mean Corpuscular HGB Conc 31.7 g/dL (31.6-35.5); Mean Corpuscular Volume 100.9 fL (83.0-100.0); Mean Platelet Volume 11.6 fL (9.4-12.4); Monocytes # 0.9 K/mcL (0.0-1.3); Monocytes % 6.6 %; Neutrophils # 12.9 K/mcL (1.6-8.9); Platelet Count 183 K/mcL (140-400); Red Blood Count 3.16 M/mcL (3.82-4.97); White Blood Count 14.3 K/mcL (4.3-11.1)
[2020-12-30 04:24] LABS: Heparin anti-factor XA UFH 0.45 IU/mL (0.30-0.70)
[2020-12-30 04:25] LABS: Prothrombin Time 22.8 Seconds (9.4-12.1)
[2020-12-30 04:34] LABS: BUN/Creatinine Ratio 68 (6-26); Blood Urea Nitrogen 44 mg/dL (8-23); Calcium 8.5 mg/dL (8.6-10.3); Carbon Dioxide 42 mEq/L (23-29); Chloride 99 mEq/L (98-107); Glucose 98 mg/dL (70-105); Magnesium 2.1 mg/dL (1.6-2.6); Osmolality,Calculated 303 (280-300); Phosphorous 1.8 mg/dL (2.7-4.5); Potassium 4.6 mEq/L (3.5-5.1); Sodium 141 mEq/L (136-145); eGFR For African Americans > 60 (> 60); eGFR For Non-African Americans > 60 (> 60)
[2020-12-30] MEDS: Heparin 25,000UNIT/250ML 1/2NS 25,000 UNIT/250 ML IV.SOLN IVC SCH (06:09)
[2020-12-30] MEDS: Budesonide/Formoterol 80/4.5 1 PUFF INH IH SCH ×2 (07:28→19:42)
[2020-12-30] MEDS ORDERED: DilTIAZem CD (24hr) 120 MG CAP.ER.24H PO SCH (09:00)
[2020-12-30] MEDS: Insulin LISPRO 300 UNITS/3 ML VIAL SUBQ SCH ×3 (10:25→18:01)
[2020-12-30] MEDS: Metoprolol XL (24 HR) Succ 25 MG TAB.ER.24H PO SCH ×2 (10:29→13:35)
[2020-12-30] MEDS: Folic Acid 1 MG TABLET PO SCH (10:42)
[2020-12-30] MEDS: Aspirin Enteric Coated 81 MG Tablet PO SCH (10:42)
[2020-12-30] MEDS: *HR* Amiodarone 200 MG TABLET PO SCH ×2 (10:42→19:52)
[2020-12-30] MEDS: Sennosides/Docusate Sodium TABLET PO SCH (10:42)
[2020-12-30] MEDS: Nystatin SUSP 5 ML UD.LIQ PO SCH ×3 (10:42→18:01)
[2020-12-30] MEDS: predniSONE 20 MG TABLET PO SCH (10:42)
[2020-12-30] MEDS: Mirtazapine 15 MG TABLET PO SCH (10:42)
[2020-12-30] MEDS: Carbidopa/Levodopa 25/100 TABLET PO SCH ×3 (10:43→19:51)
[2020-12-30] MEDS: Cholecalciferol (D-3) 1,000 UNIT (25MCG) TABLET PO SCH (10:43)
[2020-12-30] MEDS ORDERED: *HR* Warfarin 7.5 MG TABLET PO ONE (18:00)
[2020-12-30] MEDS: *HR* LORazepam 1 MG TABLET PO PRN (18:01)
[2020-12-30] MEDS: Warfarin perPT PO SCH (18:39)
[2020-12-30] MEDS: QUEtiapine Fumarate 25 MG TABLET PO SCH (19:51)
[2020-12-31] MEDS: Ipratropium/Albuterol Neb 3 ML IH SCH ×3 (03:35→11:10)
[2020-12-31 06:02] LABS: Basophils % 0.1 %; Hematocrit 32.4 % (35.3-44.9); Hemoglobin 10.1 g/dL (11.5-15.4); Immature Granulocytes % 0.9 % (0-4); Lymphocytes # 0.3 K/mcL (0.6-4.6); Lymphocytes % 1.9 %; Mean Corpuscular HGB Conc 31.2 g/dL (31.6-35.5); Mean Corpuscular Hemoglobin 31.6 pg (28.0-33.3); Mean Corpuscular Volume 101.3 fL (83.0-100.0); Mean Platelet Volume 10.6 fL (9.4-12.4); Monocytes # 0.8 K/mcL (0.0-1.3); Monocytes % 5.2 %; Platelet Count 192 K/mcL (140-400); Red Cell Distribution Width 12.9 % (11.5-14.5); Segmented Neutrophils % 91.9 %; White Blood Count 15.3 K/mcL (4.3-11.1)
[2020-12-31 06:10] LABS: Heparin anti-factor XA UFH 0.46 IU/mL (0.30-0.70)
[2020-12-31] MEDS: Aspirin Enteric Coated 81 MG Tablet PO SCH (07:34)
[2020-12-31] MEDS: Nystatin SUSP 5 ML UD.LIQ PO SCH ×4 (07:34→20:28)
[2020-12-31] MEDS: Cholecalciferol (D-3) 1,000 UNIT (25MCG) TABLET PO SCH (07:34)
[2020-12-31] MEDS: *HR* Amiodarone 200 MG TABLET PO SCH (07:34)
[2020-12-31] MEDS: Sennosides/Docusate Sodium TABLET PO SCH (07:34)
[2020-12-31] MEDS: Metoprolol XL (24 HR) Succ 25 MG TAB.ER.24H PO SCH (07:35)
[2020-12-31] MEDS: Folic Acid 1 MG TABLET PO SCH (07:35)
[2020-12-31] MEDS: predniSONE 20 MG TABLET PO SCH (07:35)
[2020-12-31] MEDS: Mirtazapine 15 MG TABLET PO SCH (07:35)
[2020-12-31] MEDS: Carbidopa/Levodopa 25/100 TABLET PO SCH ×3 (07:35→20:28)
[2020-12-31] MEDS: Insulin LISPRO 300 UNITS/3 ML VIAL SUBQ SCH ×3 (07:36→16:45)
[2020-12-31] MEDS: Budesonide/Formoterol 80/4.5 1 PUFF INH IH SCH ×2 (08:01→21:46)
[2020-12-31 08:11] LABS: % Iron Saturation 15 % (15-50); BUN/Creatinine Ratio 63 (6-26); Blood Urea Nitrogen 45 mg/dL (8-23); Calcium 8.8 mg/dL (8.6-10.3); Carbon Dioxide 41 mEq/L (23-29); Chloride 99 mEq/L (98-107); Glucose 129 mg/dL (70-105); Iron 51 mcg/dL (50-170); Magnesium 2.2 mg/dL (1.6-2.6); Osmolality,Calculated 307 (280-300); Potassium 4.8 mEq/L (3.5-5.1); Sodium 142 mEq/L (136-145); Transferrin 237 mg/dL (203-362); eGFR For African Americans > 60 (> 60); eGFR For Non-African Americans > 60 (> 60)
[2020-12-31 08:12] LABS: Ferritin 288 ng/mL (10-120)
[2020-12-31 09:36] LABS: INR 2.5; Prothrombin Time 28.1 Seconds (9.4-12.1)
[2020-12-31 09:46] LABS: Phosphorous 2.6 mg/dL (2.7-4.5)
[2020-12-31 11:04] LABS: Estimated Average Glucose 140 mg/dl; Hemoglobin A1C 6.5 %
[2020-12-31 11:08] LABS: Hematocrit 34.6 % (35.3-44.9); Hemoglobin 10.7 g/dL (11.5-15.4)
[2020-12-31] MEDS ORDERED: Metoprolol XL (24 HR) Succ 25 MG TAB.ER.24H PO ONE (11:35)
[2020-12-31] MEDS ORDERED: *HR* Digoxin 0.5 MG/2 ML AMPUL IVP ONE (15:34)
[2020-12-31] MEDS: Levalbuterol Neb 0.63 MG/3 ML IH PRN ×2 (15:52→21:47)
[2020-12-31] MEDS: Ipratropium Neb 0.5 MG NEBULIZER IH PRN ×2 (15:52→21:46)
[2020-12-31] MEDS: Acetylcysteine 10% 2 ML INHSOL IH SCH ×2 (15:52→21:47)
[2020-12-31 17:39] LABS: Adenovirus Not Detected (Not Detect); Bordetella Pertussis Not Detected (Not Detect); Chlamydophila pneumoniae Not Detected (Not Detect); Coronavirus 229E Not Detected (Not Detect); Coronavirus HKU1 Not Detected (Not Detect); Coronavirus NL63 Not Detected (Not Detect); Coronavirus OC43 Not Detected (Not Detect); Human Metapneumovirus Not Detected (Not Detect); Human Rhinovirus/Enterovirus Not Detected (Not Detect); Influenza A Subtype 2009 H1 Not Detected (Not Detect); Influenza B Not Detected (Not Detect); Mycoplasma pneumoniae Not Detected (Not Detect); Parainfluenza Virus 1 Not Detected (Not Detect); Parainfluenza Virus 2 Not Detected (Not Detect); Parainfluenza Virus 3 Not Detected (Not Detect); Parainfluenza Virus 4 Not Detected (Not Detect); Respiratory Syncytial Virus Not Detected (Not Detect)
[2020-12-31] MEDS ORDERED: *HR* Warfarin 7.5 MG TABLET PO ONE (18:00)
[2020-12-31] MEDS: *HR* LORazepam 1 MG TABLET PO PRN ×2 (19:08→23:39)
[2020-12-31] MEDS: QUEtiapine Fumarate 25 MG TABLET PO SCH (20:28)
[2020-12-31] MEDS: GuaiFENesin Liq 200 MG/10 ML UDC PO SCH (21:42)
[2021-01-01] MEDS: Levalbuterol Neb 0.63 MG/3 ML IH PRN (03:28)
[2021-01-01] MEDS: Ipratropium Neb 0.5 MG NEBULIZER IH PRN (03:28)
[2021-01-01] MEDS: Acetylcysteine 10% 2 ML INHSOL IH SCH ×4 (03:28→22:28)
[2021-01-01 05:19] LABS: Basophils % 0.2 %; Eosinophils % 0.3 %; Hematocrit 31.6 % (35.3-44.9); Hemoglobin 9.5 g/dL (11.5-15.4); Immature Granulocytes % 1.1 % (0-4); Lymphocytes # 0.5 K/mcL (0.6-4.6); Lymphocytes % 3.7 %; Mean Corpuscular HGB Conc 30.1 g/dL (31.6-35.5); Mean Corpuscular Hemoglobin 31.1 pg (28.0-33.3); Mean Corpuscular Volume 103.6 fL (83.0-100.0); Mean Platelet Volume 11.2 fL (9.4-12.4); Monocytes # 0.8 K/mcL (0.0-1.3); Monocytes % 6.1 %; Neutrophils # 11.8 K/mcL (1.6-8.9); Platelet Count 183 K/mcL (140-400); Red Blood Count 3.05 M/mcL (3.82-4.97); Red Cell Distribution Width 13.1 % (11.5-14.5); Segmented Neutrophils % 88.6 %; White Blood Count 13.3 K/mcL (4.3-11.1)
[2021-01-01 05:30] LABS: BUN/Creatinine Ratio 59 (6-26); Blood Urea Nitrogen 39 mg/dL (8-23); Carbon Dioxide 43 mEq/L (23-29); Chloride 102 mEq/L (98-107); Glucose 109 mg/dL (70-105); Magnesium 2.1 mg/dL (1.6-2.6); Osmolality,Calculated 306 (280-300); Potassium 4.9 mEq/L (3.5-5.1); Sodium 143 mEq/L (136-145); eGFR For African Americans > 60 (> 60); eGFR For Non-African Americans > 60 (> 60)
[2021-01-01 05:33] LABS: Prothrombin Time 42.8 Seconds (9.4-12.1)
[2021-01-01 05:34] LABS: INR 3.8
[2021-01-01] MEDS: GuaiFENesin Liq 200 MG/10 ML UDC PO SCH ×4 (06:42→20:01)
[2021-01-01] MEDS: Insulin LISPRO 300 UNITS/3 ML VIAL SUBQ SCH ×3 (08:00→16:28)
[2021-01-01] MEDS: Nystatin SUSP 5 ML UD.LIQ PO SCH ×4 (08:18→20:01)
[2021-01-01] MEDS: Mirtazapine 15 MG TABLET PO SCH (08:18)
[2021-01-01] MEDS: Aspirin Enteric Coated 81 MG Tablet PO SCH (08:18)
[2021-01-01] MEDS: predniSONE 20 MG TABLET PO SCH (08:18)
[2021-01-01] MEDS: *HR* Digoxin 0.125 MG TABLET PO SCH (08:18)
[2021-01-01] MEDS: Cholecalciferol (D-3) 1,000 UNIT (25MCG) TABLET PO SCH (08:18)
[2021-01-01] MEDS: Metoprolol XL (24 HR) Succ 50 MG TAB.ER.24H PO SCH (08:18)
[2021-01-01] MEDS: Carbidopa/Levodopa 25/100 TABLET PO SCH ×3 (08:19→20:01)
[2021-01-01] MEDS: Folic Acid 1 MG TABLET PO SCH (08:19)
[2021-01-01] MEDS: Ipratropium Neb 0.5 MG NEBULIZER IH SCH ×3 (09:49→22:28)
[2021-01-01] MEDS: Levalbuterol Neb 0.63 MG/3 ML IH SCH ×3 (09:49→22:28)
[2021-01-01] MEDS: Sennosides/Docusate Sodium TABLET PO SCH ×2 (10:14→20:01)
[2021-01-01] MEDS: polyethylene glycoL 3350 17 GM POWD.PACK PO SCH (10:14)
[2021-01-01] MEDS: *HR* LORazepam 1 MG TABLET PO PRN ×2 (17:40→20:32)
[2021-01-01] MEDS ORDERED: *HR* Warfarin 5 MG TABLET PO ONE (18:00)
[2021-01-01] MEDS ORDERED: Warfarin perPT PO PRN (18:00)
[2021-01-01] MEDS: QUEtiapine Fumarate 25 MG TABLET PO SCH (20:01)
[2021-01-02 01:16] LABS: Basophils % 0.1 %; Eosinophils # 0.1 K/mcL (0.0-0.6); Eosinophils % 0.4 %; Hematocrit 31.2 % (35.3-44.9); Hemoglobin 9.7 g/dL (11.5-15.4); Immature Granulocytes % 0.9 % (0-4); Lymphocytes # 0.4 K/mcL (0.6-4.6); Lymphocytes % 2.8 %; Mean Corpuscular HGB Conc 31.1 g/dL (31.6-35.5); Mean Corpuscular Hemoglobin 32.4 pg (28.0-33.3); Mean Corpuscular Volume 104.3 fL (83.0-100.0); Mean Platelet Volume 11.1 fL (9.4-12.4); Monocytes # 0.8 K/mcL (0.0-1.3); Monocytes % 5.5 %; Neutrophils # 13.7 K/mcL (1.6-8.9); Platelet Count 193 K/mcL (140-400); Red Blood Count 2.99 M/mcL (3.82-4.97); Red Cell Distribution Width 13.2 % (11.5-14.5); Segmented Neutrophils % 90.3 %; White Blood Count 15.2 K/mcL (4.3-11.1)
[2021-01-02 01:26] LABS: VBG HCO3 41 mEq/L (21-27); VBG PCO2 73 mmHg (41-51); VBG PH 7.36 pH Units (7.32-7.42); VBG PO2 219 mmHg (25-50)
[2021-01-02 01:31] LABS: INR 2.1; Prothrombin Time 24.1 Seconds (9.4-12.1)
[2021-01-02 01:45] LABS: BUN/Creatinine Ratio 69 (6-26); Blood Urea Nitrogen 44 mg/dL (8-23); Calcium 8.8 mg/dL (8.6-10.3); Carbon Dioxide 41 mEq/L (23-29); Chloride 101 mEq/L (98-107); Glucose 101 mg/dL (70-105); Magnesium 2.1 mg/dL (1.6-2.6); Osmolality,Calculated 307 (280-300); Phosphorous 3.3 mg/dL (2.7-4.5); Potassium 5.1 mEq/L (3.5-5.1); Sodium 143 mEq/L (136-145); eGFR For African Americans > 60 (> 60); eGFR For Non-African Americans > 60 (> 60)
[2021-01-02 02:24] LABS: Digoxin 1.1 ng/mL (0.8-2.0)
[2021-01-02] MEDS: GuaiFENesin Liq 200 MG/10 ML UDC PO SCH ×4 (03:10→19:52)
[2021-01-02] MEDS: Acetylcysteine 10% 2 ML INHSOL IH SCH ×4 (03:26→21:46)
[2021-01-02] MEDS: Levalbuterol Neb 0.63 MG/3 ML IH SCH ×4 (03:26→21:46)
[2021-01-02] MEDS: Ipratropium Neb 0.5 MG NEBULIZER IH SCH ×4 (03:26→21:46)
[2021-01-02] MEDS: Insulin LISPRO 300 UNITS/3 ML VIAL SUBQ SCH ×4 (09:05→20:17)
[2021-01-02] MEDS ORDERED: *HR* Heparin 5,000 UNIT/ML VIAL IVP PRN ×2 (10:14)
[2021-01-02] MEDS ORDERED: *HR* Heparin 5,000 UNIT/ML VIAL IVP ONE ×2 (10:14→10:30)
[2021-01-02] MEDS: Sennosides/Docusate Sodium TABLET PO SCH ×2 (11:07→19:51)
[2021-01-02] MEDS: Cholecalciferol (D-3) 1,000 UNIT (25MCG) TABLET PO SCH (11:07)
[2021-01-02] MEDS: Aspirin Enteric Coated 81 MG Tablet PO SCH (11:07)
[2021-01-02] MEDS: Metoprolol XL (24 HR) Succ 50 MG TAB.ER.24H PO SCH (11:07)
[2021-01-02] MEDS: Carbidopa/Levodopa 25/100 TABLET PO SCH ×3 (11:08→19:52)
[2021-01-02] MEDS: Nystatin SUSP 5 ML UD.LIQ PO SCH ×4 (11:08→19:51)
[2021-01-02] MEDS: *HR* Digoxin 0.125 MG TABLET PO SCH (11:08)
[2021-01-02] MEDS: Folic Acid 1 MG TABLET PO SCH (11:08)
[2021-01-02] MEDS: predniSONE 20 MG TABLET PO SCH (11:08)
[2021-01-02] MEDS: Mirtazapine 15 MG TABLET PO SCH (11:09)
[2021-01-02 11:15] LABS: Hemoglobin 10.2 g/dL (11.5-15.4); Mean Corpuscular HGB Conc 30.9 g/dL (31.6-35.5); Mean Corpuscular Volume 103.4 fL (83.0-100.0); Mean Platelet Volume 10.8 fL (9.4-12.4); Platelet Count 199 K/mcL (140-400); Red Blood Count 3.19 M/mcL (3.82-4.97); Red Cell Distribution Width 13.1 % (11.5-14.5); White Blood Count 13.1 K/mcL (4.3-11.1)
[2021-01-02 11:23] LABS: Heparin anti-factor XA UFH < 0.04 IU/mL (0.30-0.70); Prothrombin Time 22.2 Seconds (9.4-12.1)
[2021-01-02] MEDS: Heparin 25,000UNIT/250ML 1/2NS 25,000 UNIT/250 ML IV.SOLN IVC SCH (11:49)
[2021-01-02] MEDS: polyethylene glycoL 3350 17 GM POWD.PACK PO SCH (12:28)
[2021-01-02 13:02] LABS: VBG HCO3 39 mEq/L (21-27); VBG PCO2 70 mmHg (41-51); VBG PH 7.35 pH Units (7.32-7.42); VBG PO2 108 mmHg (25-50)
[2021-01-02] MEDS ORDERED: *HR* Warfarin 10 MG TABLET PO ONE (18:00)
[2021-01-02] MEDS: *HR* LORazepam 1 MG TABLET PO PRN (19:52)
[2021-01-02] MEDS: QUEtiapine Fumarate 25 MG TABLET PO SCH (19:52)
[2021-01-02] MEDS: Melatonin 3 MG TABLET PO PRN (20:17)
[2021-01-03 00:42] LABS: VBG HCO3 37 mEq/L (21-27); VBG PCO2 63 mmHg (41-51); VBG PH 7.38 pH Units (7.32-7.42); VBG PO2 114 mmHg (25-50)
[2021-01-03 00:54] LABS: Basophils % 0.1 %; Eosinophils % 0.2 %; Hematocrit 32.8 % (35.3-44.9); Hemoglobin 10.1 g/dL (11.5-15.4); Immature Granulocytes % 0.8 % (0-4); Lymphocytes # 0.3 K/mcL (0.6-4.6); Lymphocytes % 2.3 %; Mean Corpuscular HGB Conc 30.8 g/dL (31.6-35.5); Mean Corpuscular Volume 103.8 fL (83.0-100.0); Mean Platelet Volume 11.1 fL (9.4-12.4); Monocytes # 0.5 K/mcL (0.0-1.3); Monocytes % 4.1 %; Neutrophils # 11.9 K/mcL (1.6-8.9); Platelet Count 205 K/mcL (140-400); Red Blood Count 3.16 M/mcL (3.82-4.97); Red Cell Distribution Width 13.2 % (11.5-14.5); Segmented Neutrophils % 92.5 %; White Blood Count 12.8 K/mcL (4.3-11.1)
[2021-01-03 00:56] LABS: INR 1.9; Prothrombin Time 21.5 Seconds (9.4-12.1)
[2021-01-03 01:14] LABS: BUN/Creatinine Ratio 69 (6-26); Blood Urea Nitrogen 42 mg/dL (8-23); Calcium 8.7 mg/dL (8.6-10.3); Carbon Dioxide 38 mEq/L (23-29); Chloride 100 mEq/L (98-107); Glucose 105 mg/dL (70-105); Osmolality,Calculated 303 (280-300); Sodium 141 mEq/L (136-145); eGFR For African Americans > 60 (> 60); eGFR For Non-African Americans > 60 (> 60)
[2021-01-03 02:16] LABS: Digoxin 1.1 ng/mL (0.8-2.0)
[2021-01-03] MEDS: GuaiFENesin Liq 200 MG/10 ML UDC PO SCH ×4 (02:49→20:24)
[2021-01-03] MEDS: Acetylcysteine 10% 2 ML INHSOL IH SCH ×4 (04:50→21:18)
[2021-01-03] MEDS: Ipratropium Neb 0.5 MG NEBULIZER IH SCH ×4 (04:51→21:18)
[2021-01-03] MEDS: Levalbuterol Neb 0.63 MG/3 ML IH SCH ×4 (04:51→21:18)
[2021-01-03] MEDS: Insulin LISPRO 300 UNITS/3 ML VIAL SUBQ SCH ×4 (07:30→20:25)
[2021-01-03] MEDS: polyethylene glycoL 3350 17 GM POWD.PACK PO SCH (07:31)
[2021-01-03] MEDS: Cholecalciferol (D-3) 1,000 UNIT (25MCG) TABLET PO SCH (10:09)
[2021-01-03] MEDS: Metoprolol XL (24 HR) Succ 50 MG TAB.ER.24H PO SCH (10:09)
[2021-01-03] MEDS: Carbidopa/Levodopa 25/100 TABLET PO SCH ×3 (10:09→20:24)
[2021-01-03] MEDS: Sennosides/Docusate Sodium TABLET PO SCH (10:09)
[2021-01-03] MEDS: Folic Acid 1 MG TABLET PO SCH (10:09)
[2021-01-03] MEDS: predniSONE 20 MG TABLET PO SCH (10:09)
[2021-01-03] MEDS: Aspirin Enteric Coated 81 MG Tablet PO SCH (10:09)
[2021-01-03] MEDS: *HR* Digoxin 0.125 MG TABLET PO SCH (10:10)
[2021-01-03] MEDS: Mirtazapine 15 MG TABLET PO SCH (10:10)
[2021-01-03] MEDS: *HR* LORazepam 1 MG TABLET PO PRN (14:57)
[2021-01-03 16:24] LABS: Hematocrit 33.5 % (35.3-44.9); Hemoglobin 10.6 g/dL (11.5-15.4)
[2021-01-03] MEDS ORDERED: *HR* Digoxin 0.5 MG/2 ML AMPUL IVP ONE (16:28)
[2021-01-03] MEDS ORDERED: *HR* Warfarin 5 MG TABLET PO ONE (18:00)
[2021-01-03] MEDS: Heparin 25,000UNIT/250ML 1/2NS 25,000 UNIT/250 ML IV.SOLN IVC SCH ×2 (19:35)
[2021-01-03] MEDS: QUEtiapine Fumarate 25 MG TABLET PO SCH (20:24)
[2021-01-04] MEDS: Acetylcysteine 10% 2 ML INHSOL IH SCH ×4 (03:43→22:18)
[2021-01-04] MEDS: Levalbuterol Neb 0.63 MG/3 ML IH SCH ×4 (03:43→22:18)
[2021-01-04] MEDS: Ipratropium Neb 0.5 MG NEBULIZER IH SCH ×4 (03:43→22:18)
[2021-01-04] MEDS: GuaiFENesin Liq 200 MG/10 ML UDC PO SCH ×4 (03:58→20:44)
[2021-01-04 04:08] LABS: VBG HCO3 38 mEq/L (21-27); VBG PCO2 60 mmHg (41-51); VBG PH 7.41 pH Units (7.32-7.42); VBG PO2 204 mmHg (25-50)
[2021-01-04 04:09] LABS: Basophils % 0.1 %; Eosinophils # 0.1 K/mcL (0.0-0.6); Eosinophils % 0.9 %; Hematocrit 29.7 % (35.3-44.9); Hemoglobin 9.4 g/dL (11.5-15.4); Immature Granulocytes % 0.7 % (0-4); Lymphocytes # 0.4 K/mcL (0.6-4.6); Lymphocytes % 3.3 %; Mean Corpuscular HGB Conc 31.6 g/dL (31.6-35.5); Mean Corpuscular Hemoglobin 32.8 pg (28.0-33.3); Mean Corpuscular Volume 103.5 fL (83.0-100.0); Mean Platelet Volume 10.8 fL (9.4-12.4); Monocytes # 0.7 K/mcL (0.0-1.3); Monocytes % 5.5 %; Neutrophils # 11.5 K/mcL (1.6-8.9); Platelet Count 197 K/mcL (140-400); Red Blood Count 2.87 M/mcL (3.82-4.97); Red Cell Distribution Width 13.4 % (11.5-14.5); Segmented Neutrophils % 89.5 %; White Blood Count 12.9 K/mcL (4.3-11.1)
[2021-01-04 04:30] LABS: Alanine Aminotransferase 16 Units/L (7-52); Albumin 2.8 g/dL (3.5-5.7); Albumin/Globulin Ratio 1.5 (1.1-2.2); Alkaline Phosphatase 60 Units/L (34-104); Aspartate Amino Transferase 16 Units/L (13-39); BUN/Creatinine Ratio 55 (6-26); Bilirubin,Direct 0.1 mg/dL (0.0-0.2); Bilirubin,Indirect 0.4 mg/dL (0.0-1.0); Bilirubin,Total 0.5 mg/dL (0.3-1.0); Blood Urea Nitrogen 36 mg/dL (8-23); Calcium 8.3 mg/dL (8.6-10.3); Carbon Dioxide 39 mEq/L (23-29); Chloride 101 mEq/L (98-107); Globulin 1.9 g/dL (2.4-3.5); Glucose 99 mg/dL (70-105); Osmolality,Calculated 300 (280-300); Phosphorous 2.6 mg/dL (2.7-4.5); Potassium 4.7 mEq/L (3.5-5.1); Sodium 141 mEq/L (136-145); Total Protein 4.7 g/dL (6.4-8.9); eGFR For African Americans > 60 (> 60); eGFR For Non-African Americans > 60 (> 60)
[2021-01-04 04:47] LABS: INR 2.9
[2021-01-04] MEDS: Insulin LISPRO 300 UNITS/3 ML VIAL SUBQ SCH ×4 (07:18→20:42)
[2021-01-04] MEDS: Mirtazapine 15 MG TABLET PO SCH (09:46)
[2021-01-04] MEDS: Cholecalciferol (D-3) 1,000 UNIT (25MCG) TABLET PO SCH (09:46)
[2021-01-04] MEDS: Carbidopa/Levodopa 25/100 TABLET PO SCH ×3 (09:46→20:43)
[2021-01-04] MEDS: Folic Acid 1 MG TABLET PO SCH (09:46)
[2021-01-04] MEDS: predniSONE 20 MG TABLET PO SCH (09:47)
[2021-01-04] MEDS: *HR* Digoxin 0.125 MG TABLET PO SCH (09:47)
[2021-01-04] MEDS: Aspirin Enteric Coated 81 MG Tablet PO SCH (09:48)
[2021-01-04] MEDS: Metoprolol XL (24 HR) Succ 50 MG TAB.ER.24H PO SCH (09:48)
[2021-01-04] MEDS: polyethylene glycoL 3350 17 GM POWD.PACK PO SCH ×3 (09:59→12:50)
[2021-01-04] MEDS: Sennosides/Docusate Sodium TABLET PO SCH ×2 (11:42→20:43)
[2021-01-04] MEDS: Heparin 25,000UNIT/250ML 1/2NS 25,000 UNIT/250 ML IV.SOLN IVC SCH (12:31)
[2021-01-04 14:43] LABS: Hematocrit 33.2 % (35.3-44.9); Hemoglobin 10.1 g/dL (11.5-15.4)
[2021-01-04 16:31] LABS: Hematocrit 33.2 % (35.3-44.9); Hemoglobin 10.2 g/dL (11.5-15.4)
[2021-01-04] MEDS ORDERED: *HR* Warfarin 5 MG TABLET PO ONE (18:00)
[2021-01-04] MEDS: Melatonin 3 MG TABLET PO PRN (20:43)
[2021-01-04] MEDS: *HR* LORazepam 1 MG TABLET PO PRN (20:43)
[2021-01-04] MEDS: QUEtiapine Fumarate 25 MG TABLET PO SCH (20:43)
[2021-01-05 00:58] LABS: Basophils % 0.1 %; Eosinophils # 0.1 K/mcL (0.0-0.6); Eosinophils % 0.7 %; Hematocrit 28.8 % (35.3-44.9); Hemoglobin 9.2 g/dL (11.5-15.4); Immature Granulocytes % 0.4 % (0-4); Lymphocytes # 0.3 K/mcL (0.6-4.6); Lymphocytes % 2.6 %; Mean Corpuscular HGB Conc 31.9 g/dL (31.6-35.5); Mean Corpuscular Hemoglobin 32.9 pg (28.0-33.3); Mean Corpuscular Volume 102.9 fL (83.0-100.0); Mean Platelet Volume 10.5 fL (9.4-12.4); Monocytes # 0.7 K/mcL (0.0-1.3); Monocytes % 5.8 %; Neutrophils # 10.2 K/mcL (1.6-8.9); Platelet Count 203 K/mcL (140-400); Red Cell Distribution Width 13.7 % (11.5-14.5); Segmented Neutrophils % 90.4 %; White Blood Count 11.3 K/mcL (4.3-11.1)
[2021-01-05 01:03] LABS: VBG HCO3 38 mEq/L (21-27); VBG PCO2 62 mmHg (41-51); VBG PH 7.39 pH Units (7.32-7.42); VBG PO2 194 mmHg (25-50)
[2021-01-05 01:08] LABS: INR 3.4; Prothrombin Time 37.7 Seconds (9.4-12.1)
[2021-01-05 01:16] LABS: BUN/Creatinine Ratio 49 (6-26); Blood Urea Nitrogen 35 mg/dL (8-23); Calcium 8.3 mg/dL (8.6-10.3); Carbon Dioxide 37 mEq/L (23-29); Chloride 101 mEq/L (98-107); Glucose 141 mg/dL (70-105); Magnesium 2.1 mg/dL (1.6-2.6); Osmolality,Calculated 300 (280-300); Potassium 4.9 mEq/L (3.5-5.1); Sodium 140 mEq/L (136-145); eGFR For African Americans > 60 (> 60); eGFR For Non-African Americans > 60 (> 60)
[2021-01-05] MEDS: GuaiFENesin Liq 200 MG/10 ML UDC PO SCH ×4 (03:33→22:16)
[2021-01-05] MEDS: Ipratropium Neb 0.5 MG NEBULIZER IH SCH ×4 (03:49→21:42)
[2021-01-05] MEDS: Levalbuterol Neb 0.63 MG/3 ML IH SCH ×4 (03:49→21:42)
[2021-01-05] MEDS: Acetylcysteine 10% 2 ML INHSOL IH SCH ×4 (03:49→21:42)
[2021-01-05] MEDS ORDERED: Milk and Molasses Enema 200 ML RC ONE (03:50)
[2021-01-05] MEDS: Insulin LISPRO 300 UNITS/3 ML VIAL SUBQ SCH ×3 (08:02→16:39)
[2021-01-05] MEDS: Mirtazapine 15 MG TABLET PO SCH (09:25)
[2021-01-05] MEDS: Sennosides/Docusate Sodium TABLET PO SCH (09:26)
[2021-01-05] MEDS: Cholecalciferol (D-3) 1,000 UNIT (25MCG) TABLET PO SCH (09:26)
[2021-01-05] MEDS: predniSONE 10 MG TABLET PO SCH (09:26)
[2021-01-05] MEDS: Carbidopa/Levodopa 25/100 TABLET PO SCH ×3 (09:26→22:16)
[2021-01-05] MEDS: Aspirin Enteric Coated 81 MG Tablet PO SCH (09:26)
[2021-01-05] MEDS: Folic Acid 1 MG TABLET PO SCH (09:26)
[2021-01-05] MEDS: *HR* Digoxin 0.125 MG TABLET PO SCH (09:31)
[2021-01-05] MEDS: Metoprolol XL (24 HR) Succ 50 MG TAB.ER.24H PO SCH (09:31)
[2021-01-05] MEDS ORDERED: *HR* Warfarin 5 MG TABLET PO ONE (18:00)
[2021-01-05] MEDS: QUEtiapine Fumarate 25 MG TABLET PO SCH (22:16)
[2021-01-06] MEDS: Ipratropium Neb 0.5 MG NEBULIZER IH SCH ×4 (04:12→21:58)
[2021-01-06] MEDS: Levalbuterol Neb 0.63 MG/3 ML IH SCH ×4 (04:12→21:58)
[2021-01-06] MEDS: Acetylcysteine 10% 2 ML INHSOL IH SCH ×4 (04:13→21:59)
[2021-01-06] MEDS: Insulin LISPRO 300 UNITS/3 ML VIAL SUBQ SCH ×5 (07:33→22:51)
[2021-01-06] MEDS: GuaiFENesin Liq 200 MG/10 ML UDC PO SCH ×5 (07:33→22:52)
[2021-01-06 09:44] LABS: Basophils % 0.1 %; Eosinophils # 0.1 K/mcL (0.0-0.6); Hematocrit 32.3 % (35.3-44.9); Hemoglobin 10.2 g/dL (11.5-15.4); Immature Granulocytes % 0.7 % (0-4); Lymphocytes # 0.3 K/mcL (0.6-4.6); Lymphocytes % 2.7 %; Mean Corpuscular HGB Conc 31.6 g/dL (31.6-35.5); Mean Corpuscular Hemoglobin 32.2 pg (28.0-33.3); Mean Corpuscular Volume 101.9 fL (83.0-100.0); Mean Platelet Volume 10.8 fL (9.4-12.4); Monocytes # 0.6 K/mcL (0.0-1.3); Monocytes % 5.3 %; Neutrophils # 10.2 K/mcL (1.6-8.9); Platelet Count 227 K/mcL (140-400); Red Blood Count 3.17 M/mcL (3.82-4.97); Red Cell Distribution Width 14.2 % (11.5-14.5); Segmented Neutrophils % 90.2 %; White Blood Count 11.3 K/mcL (4.3-11.1)
[2021-01-06 09:49] LABS: INR 2.4; Prothrombin Time 26.6 Seconds (9.4-12.1)
[2021-01-06 09:55] LABS: BUN/Creatinine Ratio 52 (6-26); Blood Urea Nitrogen 34 mg/dL (8-23); Calcium 8.9 mg/dL (8.6-10.3); Carbon Dioxide 35 mEq/L (23-29); Chloride 102 mEq/L (98-107); Glucose 145 mg/dL (70-105); Osmolality,Calculated 302 (280-300); Potassium 4.4 mEq/L (3.5-5.1); Sodium 141 mEq/L (136-145); eGFR For African Americans > 60 (> 60); eGFR For Non-African Americans > 60 (> 60)
[2021-01-06] MEDS ORDERED: Ondansetron 4 MG/2 ML VIAL IVP PRN (10:25)
[2021-01-06] MEDS ORDERED: *HR* Warfarin 7.5 MG TABLET PO ONE ×3 (10:30→18:00)
[2021-01-06] MEDS: predniSONE 10 MG TABLET PO SCH (11:45)
[2021-01-06] MEDS: Mirtazapine 15 MG TABLET PO SCH (11:47)
[2021-01-06] MEDS: Cholecalciferol (D-3) 1,000 UNIT (25MCG) TABLET PO SCH (11:47)
[2021-01-06] MEDS: Carbidopa/Levodopa 25/100 TABLET PO SCH ×3 (11:47→20:54)
[2021-01-06] MEDS: Folic Acid 1 MG TABLET PO SCH (11:47)
[2021-01-06] MEDS: Aspirin Enteric Coated 81 MG Tablet PO SCH (11:47)
[2021-01-06] MEDS: Metoprolol XL (24 HR) Succ 50 MG TAB.ER.24H PO SCH (11:47)
[2021-01-06] MEDS: *HR* Digoxin 0.125 MG TABLET PO SCH (11:54)
[2021-01-06] MEDS: QUEtiapine Fumarate 25 MG TABLET PO SCH (20:53)
[2021-01-07] MEDS: Levalbuterol Neb 0.63 MG/3 ML IH SCH ×3 (03:26→15:33)
[2021-01-07] MEDS: Ipratropium Neb 0.5 MG NEBULIZER IH SCH ×3 (03:26→15:33)
[2021-01-07] MEDS: Acetylcysteine 10% 2 ML INHSOL IH SCH ×3 (03:26→15:33)
[2021-01-07 04:42] LABS: INR 2.7; Prothrombin Time 30.2 Seconds (9.4-12.1)
[2021-01-07] MEDS: GuaiFENesin Liq 200 MG/10 ML UDC PO SCH ×3 (10:00→17:03)
[2021-01-07] MEDS: Insulin LISPRO 300 UNITS/3 ML VIAL SUBQ SCH ×3 (10:00→17:02)
[2021-01-07] MEDS: predniSONE 10 MG TABLET PO SCH (10:46)
[2021-01-07] MEDS: Aspirin Enteric Coated 81 MG Tablet PO SCH (10:46)
[2021-01-07] MEDS: *HR* Digoxin 0.125 MG TABLET PO SCH (10:46)
[2021-01-07] MEDS: Mirtazapine 15 MG TABLET PO SCH (10:47)
[2021-01-07] MEDS: Metoprolol XL (24 HR) Succ 50 MG TAB.ER.24H PO SCH (10:47)
[2021-01-07] MEDS: Cholecalciferol (D-3) 1,000 UNIT (25MCG) TABLET PO SCH (10:47)
[2021-01-07] MEDS: Folic Acid 1 MG TABLET PO SCH (10:47)
[2021-01-07] MEDS: Carbidopa/Levodopa 25/100 TABLET PO SCH ×2 (10:47→17:03)
[2021-01-07 11:34] VITALS: BP 128/81; PULSE 93; TEMP 98.3
[2021-01-07 16:06] LABS: Adenovirus Not Detected (Not Detect); Bordetella Pertussis Not Detected (Not Detect); Chlamydophila pneumoniae Not Detected (Not Detect); Coronavirus 229E Not Detected (Not Detect); Coronavirus HKU1 Not Detected (Not Detect); Coronavirus NL63 Not Detected (Not Detect); Coronavirus OC43 Not Detected (Not Detect); Human Metapneumovirus Not Detected (Not Detect); Human Rhinovirus/Enterovirus Not Detected (Not Detect); Influenza A Subtype 2009 H1 Not Detected (Not Detect); Influenza B Not Detected (Not Detect); Mycoplasma pneumoniae Not Detected (Not Detect); Parainfluenza Virus 1 Not Detected (Not Detect); Parainfluenza Virus 2 Not Detected (Not Detect); Parainfluenza Virus 3 Not Detected (Not Detect); Parainfluenza Virus 4 Not Detected (Not Detect); Respiratory Syncytial Virus Not Detected (Not Detect); SARS-CoV-2 Not Detected (Not Detect)
[2021-01-07 16:25] VITALS: O2SAT 96
[2021-01-07] MEDS ORDERED: *HR* LORazepam 0.5 MG TABLET PO ONE (16:32)
[2021-01-07] MEDS ORDERED: *HR* Warfarin 7.5 MG TABLET PO ONE (18:00)
== END 2021-01-07 19:00 | DRG 871 ==
LOC: EMEROOARM 01:32 → ICNU 04:28 → SUATTDRO 04:28 → ICNU 05:00 → 2NENU 12-18 16:39
PROVIDERS: ADMIT Family Medicine; ATTEND Internal Medicine